=== PATIENT | female | born 1960 | race Caucasian/White ===

== ENCOUNTER → 2016-12-26 | Outpatient (CLI) | payer OTHER ==
[~2016-12-26] MED LIST: ALBU1AER9 INH; CLON1TAB3 PO; DSY50 PO; FAMO20TA11 PO; FRS/40 PO; LPR25 PO; LXP10 PO; POTA10CA28 PO; PRENTAB65 PO; PTU50 PO; TRAM-453 PO
[2016-12-26 12:21] LABS: INR 2.2 (0.9-1.1)
== END | disposition home or self-care (01) ==
LOC: C.LABBFT 09:59
PROVIDERS: ATTEND Internal Medicine
DX: Z95.2 Presence of prosthetic heart valve (principal); E03.9 Hypothyroidism, unspecified

== ENCOUNTER → 2017-03-25 | Outpatient (CLI) | payer OTHER ==
[2017-03-25 17:52] LABS: THYROID STIMULATING HORMONE 2.01 uIu/ml (0.300-4.500)
== END | disposition home or self-care (01) ==
LOC: C.LABBFT 10:30
PROVIDERS: ATTEND Physician Assistant Medical
DX: E03.9 Hypothyroidism, unspecified (principal)

== ENCOUNTER → 2017-06-26 | Outpatient (CLI) | payer OTHER | END | disposition home or self-care (01) | LOC: C.LABBFT 13:47 | PROVIDERS: ATTEND Internal Medicine | DX: E03.9 Hypothyroidism, unspecified (principal) ==

== ENCOUNTER → 2017-08-08 | Outpatient (CLI) | payer OTHER ==
--- NOTE | 2017-08-11 07:49 | MAMMOGRAPHY REPORT ---
BILATERAL DIGITAL SCREENING MAMMOGRAM TOMOSYNTHESIS WITH CAD: 08/08/2017 CLINICAL HISTORY: Routine screening. Patient has no complaints. TECHNIQUE: Breast tomosynthesis in addition to standard 2D mammography was performed. Current study was also evaluated with a Computer Aided Detection (CAD) system. COMPARISON: Comparison is made to exams dated: 04/11/2016 mammogram, 04/06/2015 mammogram, 04/05/2014 m ammogram, 03/26/2013 mammogram, 03/25/2012 mammogram, and 03/21/2011 mammogram - [facility]. BREAST COMPOSITION: There are scattered areas of fibroglandular density in both breasts. FINDINGS: There are mild vascular calcifications and scattered benign rim calcifications in the breas ts. No suspicious mass, architectural distortion or cluster of suspicious microcalcifications is see n. IMPRESSION: ACR BI-RADS CATEGORY 1: NEGATIVE There is no mammographic evidence of malignancy. A 1 year screening mammogram is recommended. The pa tient will receive written notification of the results. Approximately 10% of breast cancers are not detected with mammography. A negative mammographic report should not delay biopsy if a clinically suggestive mass is present. Roxana Ruiz M.D. ay/:08/09/2017 08:52:15 Acupuncturist: Neda SAHNI(R)(M), [facility] letter sent: Normal 1/2 BI-RADS Code: ACR BI-RADS Category 1: Negative
== END | disposition home or self-care (01) ==
LOC: C.MAMM 08:55
PROVIDERS: ATTEND Internal Medicine
DX: Z12.31 Encounter for screening mammogram for malignant neoplasm of breast (principal)

== ENCOUNTER → 2017-08-14 | Outpatient (CLI) | payer OTHER | END | disposition home or self-care (01) | LOC: C.LABBFT 10:07 | PROVIDERS: ATTEND Internal Medicine | DX: E03.9 Hypothyroidism, unspecified (principal) ==

== ENCOUNTER → 2018-04-22 | Outpatient (CLI) | payer OTHER ==
[~2018-04-22] MED LIST changes: +CLON1TAB10 PO; -CLON1TAB3 PO; -DSY50 PO; +TRAZ1TAB49 PO
== END | disposition home or self-care (01) ==
LOC: C.LABBFT 09:23
PROVIDERS: ATTEND Physician Assistant Medical
DX: E03.9 Hypothyroidism, unspecified (principal)

== ENCOUNTER 2024-01-04 01:24 | Inpatient (IN) ==
--- OUTSIDE RECORDS SUMMARY | 2024-01-04 01:28 | External Medical Summary | Summary of Care ---
Author Name Unknown Organization [facility] [address] [place] [address] Phone [phone] Care Team Providers Care Financial Intern Name Role Phone Bhavna Obando DO Primary Care Provider [phone] Reason for Visit * Reason Comments Dosage Adjustment Via Phone (anticoag Cl inic) Encounter Details Date Type Department Care Team (Latest Contact Info) Description 12/25/2023 6:00 PM EDT Anticoagulation Pharmacy Call Center [phone] [facility] [place] [phone] [facility] [phone] [facility] [place] [phone] Atrial fibrillation, unspecified type (HCC)*; Rheumatic aortic stenosis; Paroxysmal atrial fibrillation (HCC); Mitral valve insufficiency, unspecified etiology Allergies Active Allergy Reactions Criticality Noted Date Comments Benzocaine 09/06/2008 Ear drops Nsaids 01/29/2008 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 documented as of this encounter (statuses as of 12/25/2023) Medications Medication Sig Dispensed Refills Start Date End Date Status valACYclovir (VALTREX) 1000 MG TabletIndications: Herpes simplex virus infection take 2 tablets by mouth every 12 hours 4 Tab 3 07/03/2016 Active Multi-Vitamin Daily Oral Tablet Start: 03/20/21 7:25:00 EDT 0 03/20/2021 Active Turmeric 500 MG Oral Capsule Start: 03/15/21 11:26:00 EDT 0 03/15/2021 Active Diclofenac Sodium 1 % External Gel (Voltaren)Indicati ons:Generalized OA See Instructions, Disp# 100 g, Refills: 0, apply 4 grams to affected area four times a day NEEDED FOR PAIN MAX 16 GRAMS A DAY TO SINGLE JOINT OF LOWER EXTREMITIES, Pharmacy: [address] 100 g 5 01/03/2022 Active amLODIPine Besylate 2.5 MG Oral Tablet (Norvasc)Indicatio ns:Paroxysmal atrial fibrillation (HCC) TAKE ONE TABLET BY MOUTH IN THE MORNING 90 Tablet 4 01/31/2023 Active ProAir HFA 108 (90 Base) MCG/ACT Inhalation Aerosol SolutionIndication s:Bronchitis inhale 2 puffs by mouth four times a day if needed 8.5 g 3 03/31/2023 Active busPIRone HCl 10 MG Oral Tablet (Buspar)Indication s:Anxiety TAKE ONE TABLET BY MOUTH IN THE MORNING AND ONE BEFORE BEDTIME 60 Tablet 5 04/20/2023 Active traZODone HCl 50 MG Oral Tablet (Desyrel)Indicatio ns:Sleep disorder TAKE ONE TABLET BY MOUTH BEFORE BEDTIME 90 Tablet 2 06/07/2023 Active Warfarin Sodium 5 MG Oral Tablet (Jantoven)Indicati ons:Paroxysmal atrial fibrillation (HCC),Status post aortic valve replacement,Status post mitral valve replacement TAKE one to TWO TABLETS BY MOUTH DAILY as directed by anticoagulation clinic 180 Tablet 1 07/07/2023 Active Omeprazole 20 MG Oral Capsule Delayed Release (PriLOSEC) TAKE ONE CAPSULE BY MOUTH EVERY MORNING 90 Capsule 0 09/05/2023 Active Amoxicillin 500 MG Oral Capsule (Amoxil)Indication s:Rheumatic heart disease Take four tablets one hour prior to dental work 4 Capsule 11 12/12/2023 Active Levothyroxine Sodium 112 MCG Oral Tablet (Levoxyl)Indicatio ns:Hypothyroidism, postablative TAKE 1 TABLET BY MOUTH EVERY MORNING AT LEAST 30 MINUTES PRIOR TO BREAKFAST OR OTHER MEDICATIONS 90 Tablet 3 12/15/2023 Active Metoprolol Tartrate 50 MG Oral Tablet (Lopressor)Indicat ions:Paroxysmal atrial fibrillation (HCC) TAKE 1 TABLET BY MOUTH TWICE DAILY EVERY MORNING AND BEFORE BEDTIME 180 Tablet 3 12/15/2023 Active predniSONE 20 MG Oral Tablet (Deltasone) Take 3 tabs for 3 days, 2 tabs for 3 days, 1 tab for 3 days, 1/2 tab for 3 days 20 Tablet 0 12/23/2023 Active documented as of this encounter (statuses as of 12/25/2023) Active Problems Problem Noted Date Diagnosed Date OAB (overactive bladder) 08/20/2022 Status post mitral valve replacement 01/14/2022 Status post aortic valve replacement 01/14/2022 Rheumatic valvular disease 01/14/2022 Rheumatic aortic stenosis 12/25/2021 Paroxysmal atrial fibrillation 12/25/2021 Mitral valve insufficiency, unspecified etiology 12/25/2021 Hypothyroidism, postablative 03/29/2016 Overview: TSH elevated 06/2015 after 16 mCi in January 2015 S/P AVR (aortic valve replacement) 10/12/2015 S/P MVR (mitral valve replacement) 10/12/2015 History of hyperthyroidism 09/28/2015 History of Graves' disease 03/09/2015 Aortic valve stenosis 04/17/2012 Mitral valve regurgitation 04/17/2012 NONALLERGIC RHINITIS 05/27/2008 Postnasal drip 05/27/2008 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/22/2007 snf current use of anticoagulant therapy 0 09/26/2003 MITRAL STENOSIS W INSUFF 01/14/2003 Viral warts 03/04/2001 Overview: ICD-10 update of inactive term Herpes simplex virus infection 09/09/2000 AC PROLIFERAT NEPHRITIS 07/01/2000 RHEUMATIC HEART DIS NOS 05/23/2000 Lipoma 01/09/2000 Overview: ICD-10 update of inactive term MUSCULAR BACK PAIN 12/10/1999 Endometriosis 12/10/1999 documented as of this encounter (statuses as of 12/25/2023) Resolved Problems Problem Noted Date Diagnosed Date Resolved Date Hyperthyroidism 06/15/2014 09/28/2015 Bipolar I disorder, most rec ent episode manic, moderate 07/14/2013 11/11/2023 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 017 Other and unspecified rheuma tic heart diseases(398.99) 05/22/2007 05/27/2008 Anticoagulation management encounter 01/14/2003 05/27/2008 Allergic rhinitis 01/09/2000 05/27/2008 documented as of this encounter (statuses as of 12/25/2023) Immunizations Name Administration Dates Next Due COVID-19 mRNA, LNP-s, No Pre serve, 2-Dose Series (Moderna) 07/05/2021,06/07/2021 Pneumococcal Polysaccharide PPV23 (Pneumovax) 09/10/2007 Seasonal Influenza, Quadriva lent, No Preserve, IM 06/15/2022,05/30/2016 Seasonal Influenza, Split, I IV3, With Preserve, Inj 04/19/2015,04/12/2014,04/29/2013,06/04,07/20/2011,07/20/2010,06/29/2008 ,07/20/2007 TDAP (age 11 and older)(Adacel) 04/12/2014,07/20 Varicella Zoster Vaccine (Adult) 12/10/2013 Zoster Vaccine Recombinant (Shingrix) 02/25/2018 ,12/02/2017 documented as of this encounter Social History Tobacco Use Types Packs/Day Years Used Date Smoking Tobacco: Former Cigarettes 1.5 15 0 12/23/2006 - 12/23/2021 Smokeless Tobacco: Never Comments:no passive smoke Alcohol Use Standard Drinks/Week Comments No 0 (1 standard drink = 0.6 oz pur e alcohol) Hunger Vital Sign Answer Date Recorded Within the past 12 months, y ou worried that your food would run out before you got the money to buy more. Never true 04/15/20 23 Within the past 12 months, t he food you bought just didn't last and you didn't have money to get more. Never true 04/15/2023 Sex and Gender Information Value Date Recorded Sex Assigned at Not on file Gender Identity Not on file Sexual Orientation Not on file Job Start Date Occupation Industry Not on file Not on file Not on file documented as of this encounter Functional Status Functional Status Response Date of Assess ment Are you deaf or do you have serious difficulty h earing? No 10/02/2015 Are you blind or do you have serious difficulty seeing, even when wearing glasses? No 10/02/2015 Do you have serious difficul ty walking or climbing stairs? (5 years old or older) No 10/02/2015 Do you have difficulty dress ing or bathing? (5 years old or older) No 10/02/2015 Because of a physical, menta l, or emotional condition, do you have difficulty doing errands alone such as visiting a doctor s office or shopping? (15 years old or older) No 10/02/19 16 Cognitive Status Response Date of Assessm ent Because of a physical, menta l, or emotional condition, do you have serious difficulty concentrating, remembering, or making decisions? (5 years old or older) No 10/02/2015 documented as of this encounter Progress Notes * Andrés Villanueva CPhT - 12/25/2023 2:11 PM EDT Contacts Type Contact Phone/Fax 12/25/2023 02:09 PM EDT Phone (Outgoing) Yahaira Worthy (Self) [phone] (M) Left Message Subjective Advised patient to contact Anticoagulation Clinic if any unusual bruising or bleeding, recent illness, changes in medication, or questions/concerns. PT/INR results, Coumadin dose instructions, and next PT/INR date communicated as noted by Pharmacist: Yes Andrés Villanueva CPhT 12/25/2023, 2:11 PM * Linda Ahn [facility] - 12/25/2023 1:48 PM EDT Images from the original note were not included. Coumadin Clinic (region specific) Objective Current Warfarin Dose As of 12/25/2023 Warfarin maintenance plan: 10 mg (5 mg x 2) every Mon, Wed, Fri; 7.5 mg (5 mg x 1.5) all other days INR Result As of 12/25/2023 INR goal: 2.5-3.5 INR used for dosin.0 (12/25/2023) Assessment & Plan Warfarin Plan As of 12/25/2023 Full warfarin instructions: 12/24: Hold; 12/25: Hold; Otherwise 10 mg every Mon, Wed, Fri; 7.5 mg allother days Next INR check: 01/15/2024 Repeat PT/INR in 3 week(s) Weekly dose: not changed Additional Dosing Information: Description [facility] P[employer]ed [employer] Machine Operator to contact patient with dose instructions as noted. Linda Ahn RPh 12/25/2023, 1:48 PM documented in this encounter Plan of Treatment Upcoming Encounters Date Type Department Care Team (Late st Contact Info) Description 01/20/2024 2:15 PM EDT Office Visit Urogynecology [facility] [address] [place] [address] Manav Sequeira MD [address] [place] [address] Nurse Lee Saunders [facility] [address] [place] [address] 02/03/2024 2:00 PM EDT Imaging Cardiac Studies, [facility] [address] [place] [phone] 02/04/2024 11:00 AM EDT Office Visit Cardiology, [facility] [address] [place] [address] Michele Cooper, P[place]at [address] [place] [phone] Scheduled Procedures Name Priority Associated Diagnoses Date/Ti me COLONOSCOPY FLEXIBLE PROXIMAL DIAGNOSTIC Recall History of colon polyps Health Maintenance Due Date Last Done Comments HIV Screening 1975 Hepatitis C Screening 12/22/1979 HPV/Co-Test 12/22/1991 LUNG CANCER SCREENING - USE SMARTSET 69331 12/22/2011 Depression Screening 02/05/2017 02/06/2016 COVID-19 Vaccine ( season) 2023 07/05/2021, 06/07/2021 Mammogram 03/17/2024 03/17/2023, 02/15, 04/11/2016, Additional history exists DTaP,Tdap,and Td Vaccines (3 - Td or Tdap) 04/12/2024 04/12/2014, 07/20/2007 Influenza Vaccine (FLU shot) (Season Ended) 2024 06/15/2022, 05/30/2016, 04/19/2015, Additional history exists TSH 11/11/2024 11/11/2023, 01/15, 01/03/2022, Additional history exists Cervical Cancer Screening 03/25/2025 Pap Smear 03/25/2025 03/25/2022, 09/2012, 03/31/2012, Additional history exists Diabetes Screening 11/11/2026 11/11/2023, 0 02/11/2023, 01/03/2022, Additional history exists COLONOSCOPY-EVERY 5 YRS AGES 18-100 06/17/2027 06/17/2022, 06/17/2022, 05/29/2012, Additional history exists Lipid Panel 11/11/2028 11/11/2023, 01/15, 01/03/2022, Additional history exists Pneumococcal Vaccine: Pediatrics (0 to 5 Years) and At-Risk Patients (6 to 64 Years) Aged Out 09/10/2007 No longer eligible based on patient's age to complete this topic Zoster Vaccines Completed 02/25/2018, 11/14, 12/10/2013 GARDASIL-HPV IMMUNIZATION SERIES Aged Out No longer eligible based on patient's age to complete this topic Hepatitis B Aged Out No longer eligi ble based on patient's age to complete this topic MENINGOCOCCAL (MENACTRA/MENVEO) Aged Out No longer eligible based on patient's age to complete this topic documented as of this encounter Medical Devices Implanted Type Area Store Custodian Device Identifier Shelf Expiration Date Model / Serial / Lot Sut Steel 6 [id number] - [id number] Implanted:Qty : 4 on 10/02/2015 [place]cin[place]ga [place] [facility] [place] Sternum [place] : [employer] 08/14/2020 [id number] / / [id number] Valve Heart Aortic [facility] Hp21mm - [id number] - [id number] Implanted:Qty : 1 on 10/02/2015 by Kevin Arciniega [place] [facility] [place]/A: Heart [facility] : CARDIOVASCULAR 03/30/2019 [id number] / [id number] / Valve [facility] [employer] Mitral 31mj-[id number] - [id number] - [id number] Implanted:Qty : 1 on 10/02/2015 by Kevin Arciniega [place] [facility] [place]/A: Heart [employer] : CARDIOVASCULAR 03/07/2019 [id number] / [id number] / documented as of this encounter Visit Diagnoses Diagnosis Atrial fibrillation, unspecified type (HCC)- Primary Rheumatic aortic stenosis Paroxysmal atrial fibrillation (HCC) Atrial fibrillation Mitral valve insufficiency, unspecified etiology documented in this encounter Advance Directives Latest Code Status on File Code Status Date Activated Date Inactivated Comments Full Code 10/02/2015 11:47 AM 10/10/2015 5:43 PM This order reflects the patients wishes and were consensually agreed upon. Care Teams Financial Intern Relationship Specialty Start Date End Date Bhavna Obando DO [address] [place] [address] PCP - General Family Medicine 01/03/22 documented as of this encounter
--- OUTSIDE RECORDS SUMMARY | 2024-01-04 01:28 | External Medical Summary | Summary of Care ---
Author Name Unknown Organization [facility] Address [address] [facility] [place] [address] Phone [phone] Care Team Providers Care Shop Service Technician Name Role Phone Bhavna Obando DO Primary Care Provider [phone] Reason for Visit * Reason Comments Acute Encounter Details Date Type Department Care Team (Late st Contact Info) Description 12/27/2023 2:10 PM EDT Telemedicine Family Practice/Pediatrics[address] [place] [address] Roxana Marquez MD [address] [place] [address] Acute bacterial sinusitis* Allergies Active Allergy Reactions Criticality Noted Date Comments Benzocaine 09/06/2008 Ear drops Nsaids 01/29/2008 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 documented as of this encounter (statuses as of 12/27/2023) Medications Medication Sig Dispensed Refills Start Date [...] TO SINGLE JOINT OF LOWER EXTREMITIES, Pharmacy: [facility] [place] [address] 100 g 5 01/03/2022 Active amLODIPine Besylate [...] 3 days 20 Tablet 0 12/23/2023 Active Amoxicillin-Pot Clavulanate 875-125 MG Oral Tablet (Augmentin)Indicat ions:Acute bacterial sinusitis Take 1 Tablet by mouth in the morning and 1 Tablet before bedtime. Do all this for 7 days. 14 Tablet 0 12/27/2023 Active Benzonatate 100 MG Oral CapsuleIndications :Acute bacterial sinusitis Take 1 Capsule by mouth 3 times a day as needed for Cough. 30 Capsule 1 12/27/2023 Active documented as of this encounter (statuses as of 12/27/2023) Active Problems Problem Noted Date Diagnosed Date [...] 05/27/2008 Postnasal drip 05/27/2008 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/22/2007 [facility] current use of anticoagulant therapy 0 09/26/2003 MITRAL STENOSIS W INSUFF 01/14/2003 Viral warts 03/04/2001 Overview: ICD-10 update of inactive term Herpes simplex virus infection 09/09/2000 AC PROLIFERAT NEPHRITIS 07/01/2000 RHEUMATIC HEART DIS NOS 05/23/2000 Lipoma 01/09/2000 Overview: ICD-10 update of inactive term MUSCULAR BACK PAIN 12/10/1999 Endometriosis 12/10/1999 documented as of this encounter (statuses as of 12/27/2023) Resolved Problems Problem Noted Date Diagnosed Date Resolved Date Hyperthyroidism 06/15/2014 09/28/2015 Bipolar I disorder, most rec ent episode manic, moderate 07/14/2013 11/11/2023 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 017 Other and unspecified rheuma tic heart diseases(398.99) 05/22/2007 05/27/2008 Anticoagulation management encounter 01/14/2003 05/27/2008 Allergic rhinitis 01/09/2000 05/27/2008 documented as of this encounter (statuses as of 12/27/2023) Immunizations Name Administration Dates Next Due COVID-19 [...] as of this encounter Progress Notes * Roxana Marquez MD - 12/27/2023 2:00 PM EDT Concerns Chief Complaint Patient presents with Chief Complaint Patient presents with Acute HPI & ROS Yahaira Worthy is a 63 year old female is presenting for Acute Patient location: HOME. I was in a hospital or clinic location. After connecting through televideo,patient was verified with two unique identifiers. 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 Methods to assure confidentiality were taken. Patient acknowledged consent and understanding of pr ivacy and security of the Telemedicine visit. The patient agreed to participate. HPI #. Was seen in the office 3 days ago She was around her sister who was sick with strep She was tested and it was negative Now she is very congested and coughing up green mucus She is also taking tylenol and prednisone No fevers Having headaches Review of Systems Constitutional: Positive for fatigue. Negative for fever. HENT: Positive for congestion, sinus pressure, sinus pain and sore throat. Respiratory: Positive for cough. Cardiovascular: Negative. All other systems reviewed and are negative. Current Outpatient Medications Medication Sig Dispense Refill Amoxicillin-Pot Clavulanate 875-125 MG Oral Tablet (Augmentin) Take 1 Tablet by mouth in the morning and 1 Tablet before bedtime. Do all this for 7 days. 14 Tablet 0 Benzonatate 100 MG Oral Capsule Take 1 Capsule by mouth 3 times a day as needed for Cough. 30 Capsule 1 valACYclovir (VALTREX) 1000 MG Tablet take 2 tablets by mouth every 12 hours 4 Tab 3 Multi-Vitamin Daily Oral Tablet Start: 03/20/21 7:25:00 EDT Turmeric 500 MG Oral Capsule Start: 03/15/21 11:26:00 EDT Diclofenac Sodium 1 % External Gel (Voltaren) See Instructions, Disp# 100 g, Refills: 0, apply 4 grams to affected area four times a day NEEDED FOR PAIN MAX 16 GRAMS A DAY TO SINGLE JOINT OF LOWEREXTREMITIES, Pharmacy: [facility] [address] 100 g 5 amLODIPine Besylate 2.5 MG Oral Tablet (Norvasc) TAKE ONE TABLET BY MOUTH IN THE MORNING 90 Tablet 4 ProAir HFA 108 (90 Base) MCG/ACT Inhalation Aerosol Solution inhale 2 puffs by mouth four times a day if needed 8.5 g 3 busPIRone HCl 10 MG Oral Tablet (Buspar) TAKE ONE TABLET BY MOUTH IN THE MORNING AND ONE BEFORE BEDTIME 60 Tablet 5 traZODone HCl 50 MG Oral Tablet (Desyrel) TAKE ONE TABLET BY MOUTH BEFORE BEDTIME 90 Tablet 2 Warfarin Sodium 5 MG Oral Tablet (Jantoven) TAKE one to TWO TABLETS BY MOUTH DAILY as directed by anticoagulation clinic 180 Tablet 1 Omeprazole 20 MG Oral Capsule Delayed Release (PriLOSEC) TAKE ONE CAPSULE BY MOUTH EVERY MORNING 90Capsule 0 Amoxicillin 500 MG Oral Capsule (Amoxil) Take four tablets one hour prior to dental work 4 Capsule 11 Levothyroxine Sodium 112 MCG Oral Tablet (Levoxyl) TAKE 1 TABLET BY MOUTH EVERY MORNING AT LEAST 30MINUTES PRIOR TO BREAKFAST OR OTHER MEDICATIONS 90 Tablet 3 Metoprolol Tartrate 50 MG Oral Tablet (Lopressor) TAKE 1 TABLET BY MOUTH TWICE DAILY EVERY MORNING AND BEFORE BEDTIME 180 Tablet 3 predniSONE 20 MG Oral Tablet (Deltasone) Take 3 tabs for 3 days, 2 tabs for 3 days, 1 tab for 3 days, 1/2 tab for 3 days 20 Tablet 0 No current facility-administered medications for this visit. Physical Exam LMP 01/30/2012 There is no height or weight on file to calculate BMI. BP Readings from Last 3 Encounters: 12/25/23 118/76 11/11/23 106/72 02/05/23 148/86 Wt Readings from Last 3 Encounters: 12/25/23 80.6 kg (177 lb 9.6 oz) 11/11/23 75.3 kg (166 lb) 02/05/23 79.1 kg (174 lb 6.4 oz) Physical Exam Constitutional: Appearance: Normal appearance. HENT: Nose: Congestion and rhinorrhea present. Pulmonary: Effort: Pulmonary effort is normal. Skin: General: Skin is warm and dry. Neurological: Mental Status: She is alert and oriented to person, place, and time. Psychiatric: Mood and Affect: Mood normal. Behavior: Behavior normal. Assessment/ Plan Problem List Items Addressed This Visit None Visit Diagnoses Acute bacterial sinusitis - Primary Relevant Medications Amoxicillin-Pot Clavulanate 875-125 MG Oral Tablet (Augmentin) Benzonatate 100 MG Oral Capsule Currently taking prednisone Work excuse for 12/29/23 F/u if failure to improve or sx worsen All patient questions were addressed. The patient expressed understanding of the plan. Risks, benefits, and alternatives discussed. Advised to contact me with further questions or concerns. Roxana Marquez M.D. documented in this encounter Plan of Treatment Upcoming Encounters Date Type Department Care Team (Late st Contact Info) Description 01/15/2024 8:50 AM EDT Laboratory Laboratory [facility] [place] [address] [place] [address] [place], Lab [address] [place] [address] 01/16/2024 6:15 AM EDT Anticoagulation Pharmacy Call Center [phone] [place] [address] [facility] [address] [facility] [place] [address] 01/20/2024 2:15 PM EDT Office Visit Urogynecology [facility] [address] [facility] [place] [address] Manav Sequeira MD [address] [place] [address] Nurse Lee Saunders Lin [address] [place] [address] 02/03/2024 2:00 PM EDT Imaging Cardiac Studies, [place] [facility] [address] [place] [address] 02/04/2024 11:00 AM EDT Office Visit Cardiology, [facility] [address] [place] [address] Michele Cooper PA-C [address] [place] [address] Scheduled Procedures Name Priority Associated Diagnoses Date/Ti me COLONOSCOPY FLEXIBLE PROXIMAL DIAGNOSTIC Recall History of colon polyps Health Maintenance Due Date Last Done Comments HIV Screening 1975 Hepatitis C Screening 12/22/1979 HPV/Co-Test 12/22/1991 LUNG CANCER SCREENING - USE SMARTSET 07963 12/22/2011 Depression Screening 02/05/2017 02/06/2016 COVID-19 Vaccine ( season) 2023 07/05/2021, 06/07/2021 Mammogram 03/17/2024 03/17/2023, 02/15, 04/11/2016, Additional history exists DTaP,Tdap,and Td Vaccines (3 - Td or Tdap) 04/12/2024 04/12/2014, 07/20/2007 Influenza Vaccine (FLU shot) (Season Ended) 2024 06/15/2022, 05/30/2016, 04/19/2015, Additional history exists TSH 11/11/2024 11/11/2023, 01/15, 01/03/2022, Additional history exists Cervical Cancer Screening 03/25/2025 Pap Smear 03/25/2025 03/25/2022, 1009/2012, 03/31/2012, Additional history exists Diabetes Screening 11/11/2026 [...] this encounter Medical Devices Implanted Type Area Heel Caser Device Identifier Shelf Expiration Date Model / Serial / Lot Sut Steel 6 [id number] - [id number] Implanted:Qty : 4 on 10/02/2015 by Kevin Arciinega MD at [place] [facility] N/A: Sternum JNJ : [employer] 08/14/2020 M654G / / [id number] Valve Heart Aortic [facility] Hp21mm - [id number] - [id number] Implanted:Qty : 1 on 10/02/2015 by Kevin Arciniega MD at [place] [facility] N/A: Heart [facility] CHAPO : CARDIOVASCULAR 03/30/2019 [id number]-50 [id number] / [id number] / Valve [facility] Chapo Mitral 31mj-501 - [id number] - [id number] Implanted:Qty : 1 on 10/02/2015 by Kevin Arciniega MD at [place] [facility] N/A: Heart [facility] [employer] : CARDIOVASCULAR 03/07/2019 [id number]-501 / [id number] / documented as of this encounter Visit Diagnoses Diagnosis Acute bacterial sinusitis- Primary Acute sinusitis, unspecified documented in this encounter Advance Directives Latest Code Status on File Code Status Date Activated Date Inactivated Comments Full Code 10/02/2015 11:47 AM 10/10/2015 5:43 PM This order reflects the patients wishes and were consensually agreed upon. Care Teams Shop Service Technician Relationship Specialty Start Date End Date Bhavna Obando DO [address] [place] [address] PCP - General Family Medicine 01/03/22 documented as of this encounter
--- OUTSIDE RECORDS SUMMARY | 2024-01-04 01:28 | External Medical Summary | Summary of Care ---
Author Name Unknown Organization [facility] Address [address] [facility] [place] [address] Phone [phone] Care Team Providers Care Cso Name Role Phone Bhavna Obando DO Primary Care Provider [phone] Reason for Visit * Reason Onset Date Comments Med Request 12/26/2023 Encounter Details Date Type Department Care Team (Late st Contact Info) Description 12/26/2023 Telephone Family Practice [facility] [address] [place] [address] Bhavna Obando DO [address] [place] [address] Med Request Allergies Active Allergy Reactions Criticality Noted Date [...] SINGLE JOINT OF LOWER EXTREMITIES, Pharmacy: [facility] [address] 100 g 5 01/03/2022 Active amLODIPine [...] 3 days, 1 tab for 3 days, 2 tab for 3 days 20 Tablet 0 [...] 05/27/2008 Postnasal drip 05/27/2008 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/22/2007 [facility] current use of anticoagulant therapy 0 09/26/2003 [...] No 10/02/2015 documented as of this encounter Miscellaneous Notes * Telephone Encounter - Claudia Hills OSA - 12/27/2023 8:21 AM EDT Patient has been notified of the message. Patient has no further questions. * Telephone Encounter - Linda Frey LPN - 12/26/2023 4:33 PM EDT Called pt, left message that strep was negative, and we would need information on how she is feeling today, and the need for cough med. Congestion? Cough? SOB? If ill, or no better, would suggest urgent care this weekend or clinic. Or this will have to wait until Friday. Ask that she call back to discuss. * Telephone Encounter - Cecily Maldonado OSA - 12/26/2023 9:29 AM EDT Patient states that she saw Dr. Edwards yesterday for sore throat. Did a strep swab, no results yet. She wants a message sent to Dr. Obando to see if she will call in "cough syrup" for this. Mentionsguiafenasin is what she wants. documented in this encounter Plan of Treatment Upcoming Encounters Date Type Department Care Team (Late st Contact Info) Description 01/15/2024 8:50 AM EDT Laboratory Laboratory [facility] [place] [address] [place] [address] [address] [place] [address] 01/16/2024 6:15 AM EDT Anticoagulation Pharmacy Call Center [phone] [facility] [address] [place] [address] [facility] [address] [facility] [place] [address] 01/20/2024 2:15 PM EDT Office Visit Urogynecology [facility] [address] [place] [address] Manav Sequeira MD [address] [place] [address] Nurse Lee Saunders [facility] [address] [place] [address] 02/03/2024 2:00 PM EDT Imaging Cardiac Studies, [facility] [address] [place] [address] 02/04/2024 11:00 AM EDT Office Visit Cardiology, [facility] [address] [facility] [place] [address] Michele Cooper, [facility] [address] [place] [address] Scheduled Procedures Name Priority Associated Diagnoses Date/Ti me COLONOSCOPY FLEXIBLE PROXIMAL DIAGNOSTIC Recall History of colon polyps Health Maintenance Due Date Last Done Comments HIV Screening 1975 Hepatitis C Screening 12/22/1979 HPV/Co-Test 12/22/1991 LUNG CANCER SCREENING - USE SMARTSET 16604 12/22/2011 Depression Screening 02/05/2017 02/06/2016 COVID-19 Vaccine ( season) 2023 07/05/2021, 06/07/2021 Mammogram 03/17/2024 03/17/2023, 02/15, 04/11/2016, Additional history exists DTaP,Tdap,and Td Vaccines (3 - Td or Tdap) 04/12/2024 04/12/2014, 07/20/2007 Influenza Vaccine (FLU shot) (Season Ended) 2024 06/15/2022, 05/30/2016, 04/19/2015, Additional history exists TSH 11/11/2024 11/11/2023, 01/15, 01/03/2022, Additional history exists Cervical Cancer Screening 03/25/2025 Pap Smear 03/25/2025 03/25/2022, 10/0 09/2012, 03/31/2012, Additional history exists Diabetes Screening [...] this encounter Medical Devices Implanted Type Area Statistical Geneticist Device Identifier Shelf Expiration Date Model / Serial / Lot Sut Steel 6 M654g - [id number] Implanted:Qty : 4 on 10/02/2015 by Kevin Arciniega MD at [place] [facility] N/A: Sternum JNJ : [employer] 08/14/2020 M654G / / [id number] Valve Heart Aortic [facility] Hp21mm - [id number] - [id number] Implanted:Qty : 1 on 10/02/2015 by Kevin Arciniega MD at [place] [facility] N/A: Heart [facility] [employer]APO : CARDIOVASCULAR 03/30/2019 [id number]-[id number] 5 / [id number] / Valve [facility] Chapo Mitral 31j-501 - [id number] - [id number] Implanted:Qty : 1 on 10/02/2015 by Kevin Arciniega MD at [place] [facility] N/A: Heart ST CHAPO : CARDIOVASCULAR 03/07/2019 [id number]-[id number] / [id number] / documented as of this encounter Advance Directives Latest Code Status on File Code Status Date Activated Date Inactivated Comments Full Code 10/02/2015 11:47 AM 10/10/2015 5:43 PM This order reflects the patients wishes and were consensually agreed upon. Care Teams Cso Relationship Specialty Start Date End Date Bhavna Obando DO [address] [place] [address] PCP - General Family Medicine 01/03/22 documented as of this encounter
--- OUTSIDE RECORDS SUMMARY | 2024-01-04 01:29 | External Medical Summary | Summary of Care ---
Author Name Unknown Organization [facility] Address [address] [place] [address] Phone [phone] Care Team Providers Care Credit Risk Associate Name Role Phone Bhavna Obando DO Primary Care Provider [phone] Reason for Visit * Reason Comments Sore Throat Patient has had a so re throat since yesterday. Sx include yellow mucus, sore throat, chills. Patient states that she was in contact with her sister on Friday and her sister tested positive for strep throat. Patient has taken cough drop and tylenol and (-) relief. Encounter Details Date Type Department Care Team (Late st Contact Info) Description 12/25/2023 1:00 PM EDT Office Visit [address] [place] [address] Austin Edwards MD [address] [place] [address] [place] [address] Strep sore throat* Allergies Active Allergy Reactions Criticality Noted Date Comments Benzocaine 09/06/2008 Ear drops Nsaids 01/29/2008 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 documented as of this encounter (statuses as of 12/25/2023) Medications Medication Sig Dispensed Refills Start Date End Date Status valACYclovir (VALTREX) 1000 MG TabletIndications :Herpes simplex virus infection take 2 tablets by mouth every 12 hours 4 Tab 3 6 Active Multi-Vitamin Daily Oral Tablet Start: 03/20/21 7:25:00 EDT 0 1 Active Turmeric 500 MG Oral Capsule Start: 03/15/21 11:26:00 EDT 0 1 Active Diclofenac Sodium 1 % External Gel (Voltaren)Indicat ions:Generalized OA See Instructions, Disp# 100 g, Refills: 0, apply 4 grams to affected area four times a day NEEDED FOR PAIN MAX 16 GRAMS A DAY TO SINGLE JOINT OF LOWER EXTREMITIES, Pharmacy: [facility] 100 g 5 2 Active amLODIPine Besylate 2.5 MG Oral Tablet (Norvasc)Indicati ons:Paroxysmal atrial fibrillation (HCC) TAKE ONE TABLET BY MOUTH IN THE MORNING 90 Tablet 4 3 Active ProAir HFA 108 (90 Base) MCG/ACT Inhalation Aerosol SolutionIndicatio ns:Bronchitis inhale 2 puffs by mouth four times a day if needed 8.5 g 3 3 Active busPIRone HCl 10 MG Oral Tablet (Buspar)Indicatio ns:Anxiety TAKE ONE TABLET BY MOUTH IN THE MORNING AND ONE BEFORE BEDTIME 60 Tablet 5 3 Active traZODone HCl 50 MG Oral Tablet (Desyrel)Indicati ons:Sleep disorder TAKE ONE TABLET BY MOUTH BEFORE BEDTIME 90 Tablet 2 3 Active Warfarin Sodium 5 MG Oral Tablet (Jantoven)Indicat ions:Paroxysmal atrial fibrillation (HCC),Status post aortic valve replacement,Statu s post mitral valve replacement TAKE one to TWO TABLETS BY MOUTH DAILY as directed by anticoagulation clinic 180 Tablet 1 3 Active Omeprazole 20 MG Oral Capsule Delayed Release (PriLOSEC) TAKE ONE CAPSULE BY MOUTH EVERY MORNING 90 Capsule 0 3 Active Amoxicillin 500 MG Oral Capsule (Amoxil)Indicatio ns:Rheumatic heart disease Take four tablets one hour prior to dental work 4 Capsule 11 4 Active Levothyroxine Sodium 112 MCG Oral Tablet (Levoxyl)Indicati ons:Hypothyroidis m, postablative TAKE 1 TABLET BY MOUTH EVERY MORNING AT LEAST 30 MINUTES PRIOR TO BREAKFAST OR OTHER MEDICATIONS 90 Tablet 3 4 Active Metoprolol Tartrate 50 MG Oral Tablet (Lopressor)Indica tions:Paroxysmal atrial fibrillation (HCC) TAKE 1 TABLET BY MOUTH TWICE DAILY EVERY MORNING AND BEFORE BEDTIME 180 Tablet 3 4 Active predniSONE 20 MG Oral Tablet (Deltasone) Take 3 tabs for 3 days, 2 tabs for 3 days, 1 tab for 3 days, 1/2 tab for 3 days 20 Tablet 0 4 Active Oxybutynin Chloride ER 10 MG Oral Tablet Extended Release 24 Hour (Ditropan XL)Indications:OA B (overactive bladder) Take 1 Tablet (10 mg) by mouth in the morning. Do not cut, crush or chew. 30 Tablet 11 2 10/22/19 24 Discontinu ed(Patient preference /discontin uation) Escitalopram Oxalate 20 MG Oral Tablet (Lexapro) TAKE 1 TABLET BY MOUTH EVERY MORNING 90 Tablet 3 3 10/22/19 24 Discontinu ed(Patient preference /discontin uation) documented as of this encounter (statuses as [...] 05/27/2008 Postnasal drip 05/27/2008 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/22/2007 USP current use of anticoagulant therapy 0 09/26/2003 [...] the money to buy more. Never true 08/01/20 23 Within the past 12 months, t [...] on file documented as of this encounter Last Filed Vital Signs Vital Sign Reading Time Taken Comments Blood Pressure 118/76 12/25/2023 12:37 PM EDT Pulse 98 12/25/2023 12:37 PM EDT Temperature 36.2 C (97.1 F) 12/25/2023 12:37 PM E DT Respiratory Rate - - Oxygen Saturation 96% 12/25/2023 12:37 PM EDT Inhaled Oxygen Concentration - - Weight 80.6 kg (177 lb 9.6 oz) 12/25/2023 12:37 PM EDT Height 160 cm (5' 2.99") 12/25/2023 12:37 PM EDT Body Mass Index 31.47 12/25/2023 12:37 PM EDT documented in this encounter Functional Status Functional Status Response [...] as of this encounter Progress Notes * Austin Edwards MD - 12/25/2023 12:41 PM EDT Nursing Notes: Daniel Tipton, MED ASSIST 12/25/23 1237 Sign at exiting of workspace Chief Complaint Patient presents with Sore Throat Patient has had a sore throat since yesterday. Sx include yellow mucus, sore throat, chills. Patient states that she was in contact with her sister on Friday and her sister tested positive for strep throat. Patient has taken cough drop and tylenol and (-) relief. Health Maintenance addressed. No recent Covid. 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 ECHO Rheumatic mitral regurgitation 06/11/2000 ECHO 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 Past Surgical History: Procedure Laterality Date BIOPSY OF BREAST, OPEN Left breast, benign COLONOSCOPY, DIAGNOSTIC (RECTUM) 05/27/2012 ADENOMATOUS POLYPS REPEAT COLONOSCOPY IN 5 YEARS COLONOSCOPY, DIAGNOSTIC (RECTUM) 06/17/2022 multi polyps in transverse & sigmoid, diverticulosis in sigmoid, internal hemorrhoids / biopsies benign adenomatous polyp and a hyperplastic polyp / 5 year recall / COLONOSCOPY FLEXIBLE PROXIMAL DIAGNOSTIC performed by Giovanny Morton MD at ENDOSCOPY [facility] CORONARY ANGIOGRAPHY W/RIGHT+LEFT CATH Right 08/04/2015 CORONARY ANGIOGRAPHY W/RIGHT+LEFT CATH performed by Jerardo Schwartz MD at [facility]ARDIAC LAB[facility] INFORMATION Laparoscopy, Dx with Endometriosis LIGATE/CUT OVIDUCT(S) Tubal Ligation NM RADIOPHARNACEUTICAL THYROID CANCER ABLATION 01/2015 16 mCi GLOVER-131 [Mt [place]] REPLACE MITRAL VALVE W/BYPASS 10/02/2015 REPLACEMENT MITRAL VALVE performed by Kevin Arciniega MD at [place] [facility] REPLACEMENT AORTIC VALVE, BYPASS WITH PROSTHETIC VALVE N/A 10/02/2015 REPLACEMENT AORTIC VALVE performed by Kevin Arciniega MD at OR [facility] Review of patient's allergies indicates: Allergen Reactions Benzocaine Ear drops Nsaids 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 Social History Socioeconomic History Marital status: Spouse name: velia Number of children: 2 Years of education: Not on file Highest education level: Not on file Occupational History 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: [employer] Employer: [employer] Tobacco Use Smoking status: Former Current packs/day: 0.00 Average packs/day: 1.5 packs/day for 15.0 years (22.5 ttl pk-yrs) Types: Cigarettes Start date: 12/23/2006 Quit date: 12/23/2021 Years since quittin.0 Smokeless tobacco: Never Tobacco comments: no passive smoke Vaping Use Vaping Use: Never used Substance and Sexual Activity Alcohol use: No Alcohol/week: 0.0 standard drinks of alcohol Drug use: No Sexual activity: Yes Partners: Male control/protection: Surgical Comment: tubal Other Topics Concern Service Not Asked Blood Transfusions Not Asked Caffeine Concern Not Asked Occupational Exposure Not Asked Hobby Hazards Not Asked Sleep Concern Not Asked Stress Concern Not Asked Weight Concern Not Asked Special Diet Yes Comment: no ca, milk about 1/day Back Care Not Asked Exercise No Bike Helmet Not Asked Seat Belt Not Asked Self-Exams Yes Comment: breast Social History Narrative [facility] [place] INFORMATIONENVIRONMENTAL HISTORY:Type of Home: Two StoryType of Heating System: Gas and Forced airAir Conditioning: Yes UpstairsBasement: Finished, Dampness, Dehumidifier and Mold, mildewHome have cockroaches: NoIrritants in the home: Scented Candles and Scented air freshenersPatient's bedroom location: Floor: second Type of calli: HardwoodBeds: Number: 1 Type of beds: AirMattressPillows: Number: 1 Type of pillows: Synthetic (hypoallergenic, polyester)Bedroom contains: Minimal itemsPets: 3 dog(s)Lives on a farm: NoPharTyrosy water quality technician; exposed to some cleaning sprays and dust.Entered by: Arun Lundberg MD05/27/2008Pharm tech Left handed As of 04/15/2023 she is not a retail pharmacy merchandiser, has a job working at [employer] Social [employer] Financial Resource Strain: Not on file Food Insecurity: No Food Insecurity (04/15/2023) Hunger Vital Sign Worried About Running Out of Food in the Last Year: Never true Ran Out of Food in the Last Year: Never true Transportation Needs: Not on file Physical Activity: Not on file Stress: Not on file Social Connections: Not on file Intimate Partner Violence: Not on file Housing Stability: Not on file Current Outpatient Medications Medication Sig Dispense Refill valACYclovir (VALTREX) 1000 MG Tablet take 2 [...] TO SINGLE JOINT OF LOWEREXTREMITIES, Pharmacy: [facility] [address] 100 g 5 amLODIPine Besylate 2.5 [...] tab for 3 days 20 Tablet 0 Oxybutynin Chloride ER 10 MG Oral Tablet Extended Release 24 Hour (Ditropan XL) Take 1 Tablet (10 mg) by mouth in the morning. Do not cut, crush or chew. (Patient not taking: Reported on 11/11/2023) 30 Tablet 11 Escitalopram Oxalate 20 MG Oral Tablet (Lexapro) TAKE 1 TABLET BY MOUTH EVERY MORNING (Patient not taking: Reported on 11/11/2023) 90 Tablet 3 No current facility-administered medications for this visit. Immunization History Administered Date(s) Administered COVID-19 mRNA, LNP-s, No Preserve, 2-Dose Series (Moderna) 06/07/2021, 07/05/2021 Pneumococcal Polysaccharide PPV23 (Pneumovax) 09/10/2007 Seasonal Influenza, Quadrivalent, No Preserve, IM 05/30/2016, 06/15/2022 Seasonal Influenza, Split, IIV3, With Preserve, Inj 07/20/2007, 06/29/2008, 07/20/2010, 07/20/2011,06/04/2012, 04/29/2013, 04/12/2014, 04/19/2015 TDAP (age 11 and older)(Adacel) 07/20/2007, 04/12/2014 Varicella Zoster Vaccine (Adult) 12/10/2013 Zoster Vaccine Recombinant (Shingrix) 12/02/2017, 02/25/2018 Denies nausea, vomiting, or diarrhea. O: Blood pressure 118/76, pulse 98, temperature 36.2 C (97.1 F), temperature source Tympanic, height 1.6 m (5' 2.99"), weight 80.6 kg (177 lb 9.6 oz), last menstrual period 01/30/2012, SpO2 96%. General appearance: well developed, well nourished and in no acute distress. PERRLA, EOMI. No scleral icterus. No facial assymmetry. TM's and canals normal. There is a normal gag reflex. Pt has normal teeth and no pharyngeal inflammation. The palate has no lesions and the uvula is normal. Neck is supple without adenopathy or thyromegaly. Chest is symmetrical and moves normally. The lungs are clearwithout wheezes, rales, rhonchi or rubs, and the heart is regular without murmurs or gallops, or ectopy. PMI not displaced. Rapid strep negative A :Strep sore throat (Primary) - STREP A SCREEN, POINT OF CARE (ENTER/EDIT) - GROUP A STREP PCR - RETURN TO WORK OR SCHOOL for Friday. She is on steroids already, so just continue that. Follow Up: Return if symptoms worsen or fail to improve. documented in this encounter Nursing Notes * Daniel Tipton MED ASSIST - 12/25/2023 12:37 PM EDT Chief Complaint Patient presents with Sore Throat Patient has had a sore throat since yesterday. Sx include yellow mucus, sore throat, chills. Patient states that she was in contact with her sister on Friday and her sister tested positive for strep throat. Patient has taken cough drop and tylenol and (-) relief. documented in this encounter Plan of Treatment Upcoming Encounters Date Type Department Care Team (Latest Contact Info) Description 12/25/2023 1:20 PM EDT Laboratory Laboratory [facility] Mares [address] [place] [address] [facility] [address] [place] [address] Atrial fibrillation (HCC) 01/01/2024 6:15 AM EDT Anticoagulation Pharmacy Call Center [address] [place] [address] [facility] [address] [place] [address] 01/20/2024 2:15 PM EDT Office Visit Urogynecology Gerald Saunders [address] [place] [address] Manav Sequeira MD [address] [place] [address] Nurse Lee Saunders [address] [place] [address] 02/03/2024 2:00 PM EDT Imaging Cardiac Studies, [facility]s Mistry [address] [place] [address] 02/04/2024 11:00 AM EDT Office Visit Cardiology, [facility] [address] [place] [address] Michele Cooper PA-C [address] [place] [address] Pending Results Name Type Priority Associated Diagnoses Date /Time STREP A SCREEN, POINT OF CARE (ENTER/EDIT) Point of Care Testing Routine Strep sore throat 12/25/2023 12:41 PM EDT Scheduled Orders Name Type Priority Associated Diagnoses Orde r Schedule GROUP A STREP PCR Lab Routine Strep sore throat Ordered: 12/25/2023 Scheduled Procedures Name Priority Associated Diagnoses Date/Ti me COLONOSCOPY FLEXIBLE PROXIMAL DIAGNOSTIC Recall History of colon polyps Health Maintenance Due Date Last Done Comments HIV Screening 1976 Hepatitis C Screening 12/22/1979 HPV/Co-Test 12/22/1991 LUNG CANCER SCREENING - USE SMARTSET 07952 12/22/2011 Depression Screening 02/05/2017 02/06/2016 COVID-19 Vaccine ( - season) 2023 07/05/2021, 06/07/2021 Mammogram 03/17/2024 03/17/2023, [...] this encounter Medical Devices Implanted Type Area Antique Clocks Repairer Device Identifier Shelf Expiration Date Model / Serial / Lot Sut Steel 6 [id number] - [id number] Implanted:Qty : 4 on 10/02/2015 by Kevin Arciniega MD at [place] [facility] N/A: Sternum JNJ : [employer] 08/14/2020 [id number] / / [id number] Valve Heart Aortic [facility] Hp21mm - [id number] - [id number] Implanted:Qty : 1 on 10/02/2015 by Kevin Arciniega MD at [place] [facility] N/A: Heart [facility] : CARDIOVASCULAR 03/30/2019 [id number] / [id number] / Valve [facility] [place] Mitral [id number] - [id number] - [id number] Implanted:Qty : 1 on 10/02/2015 by Kevin Arciniega MD at [place] [facility] N/A: Heart [facility] [place] : CARDIOVASCULAR 03/07/2019 [id number] / [id number] / documented as of this encounter Visit Diagnoses Diagnosis Strep sore throat- Primary Streptococcal sore throat Atrial fibrillation (HCC) Atrial fibrillation documented in this encounter Advance Directives Latest Code Status on File Code Status Date Activated Date Inactivated Comments Full Code 10/02/2015 11:47 AM 10/10/2015 5:43 PM This order reflects the patients wishes and were consensually agreed upon. Care Teams Credit Risk Associate Relationship Specialty Start Date End Date Bhavna Obando DO [address] [place] [address] PCP - General Family Medicine 01/03/22 documented as of this encounter
--- OUTSIDE RECORDS SUMMARY | 2024-01-04 01:29 | External Medical Summary | Summary of Care ---
Author Name Unknown Organization [facility] Address [address] [facility] [place] [address] Phone [phone] Care Team Providers Care X Ray Equipment Servicer Name Role Phone Bhavna Obando DO Primary Care Provider [phone] Reason for Visit * Reason Onset Date Comments Advice 12/09/2023 Encounter Details Date Type Department Care Team (Late st Contact Info) Description 12/09/2023 Telephone Cardiology, [facility] [address] [place] [address] Michele Cooper PAMontserrat [address] [place] [address] Advice Allergies Active Allergy Reactions Criticality Noted Date Comments Benzocaine 09/06/2008 Ear drops Nsaids 01/29/2008 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 documented as of this encounter (statuses as of 12/12/2023) Medications Medication Sig Dispensed Refills Start Date End Date Status valACYclovir (VALTREX) 1000 MG TabletIndications :Herpes simplex virus infection take 2 tablets by mouth every 12 hours 4 Tab 3 6 Active Additional Information Patient not taking.Reported on 07/24/2022 Multi-Vitamin Daily Oral Tablet Start: 03/20/21 7:25:00 [...] TO SINGLE JOINT OF LOWER EXTREMITIES, Pharmacy: [address] 100 g 5 2 Active Oxybutynin Chloride ER 10 MG Oral Tablet Extended Release 24 Hour (Ditropan XL)Indications:OA B (overactive bladder) Take 1 Tablet (10 mg) by mouth in the morning. Do not cut, crush or chew. 30 Tablet 11 2 Active Additional Information Patient not taking.Reported on 11/11/2023 amLODIPine Besylate 2.5 MG Oral Tablet (Norvasc)Indicati ons:Paroxysmal atrial fibrillation (HCC) TAKE ONE TABLET BY MOUTH IN THE MORNING 90 Tablet 4 3 Active Metoprolol Tartrate 50 MG Oral Tablet (Lopressor)Indica tions:Paroxysmal atrial fibrillation (HCC) TAKE ONE TABLET BY MOUTH IN THE MORNING AND ONE BEFORE BEDTIME 180 Tablet 3 3 Active ProAir HFA 108 (90 Base) MCG/ACT Inhalation Aerosol SolutionIndicatio ns:Bronchitis inhale 2 puffs by mouth four times a day if needed 8.5 g 3 3 Active busPIRone HCl 10 MG Oral Tablet (Buspar)Indicatio ns:Anxiety TAKE ONE TABLET BY MOUTH IN THE MORNING AND ONE BEFORE BEDTIME 60 Tablet 5 3 Active Escitalopram Oxalate 20 MG Oral Tablet (Lexapro) TAKE 1 TABLET BY MOUTH EVERY MORNING 90 Tablet 3 3 Active Additional Information Patient not taking.Reported on 11/11/2023 Levothyroxine Sodium 112 MCG Oral Tablet (Levoxyl)Indicati ons:Hypothyroidis m, postablative TAKE 1 TABLET BY MOUTH DAILY FIRST THING IN THE MORNING. 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 0 09/26/2003 MITRAL STENOSIS W INSUFF 01/14/2003 Viral warts 03/04/2001 Overview: ICD-10 update of inactive term Herpes simplex virus infection 09/09/2000 AC PROLIFERAT NEPHRITIS 07/01/2000 RHEUMATIC HEART DIS NOS 05/23/2000 Lipoma 01/09/2000 Overview: ICD-10 update of inactive term MUSCULAR BACK PAIN 12/10/1999 Endometriosis 12/10/1999 documented as of this encounter (statuses as of 12/12/2023) Resolved Problems Problem Noted Date Diagnosed Date Resolved Date Hyperthyroidism 06/15/2014 09/28/2015 Bipolar I disorder, most rec ent episode manic, moderate 07/14/2013 11/11/2023 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 * Telephone Encounter - John Becerra RN - 12/12/2023 11:26 AM EDT Pending Prescriptions: Disp Refills Amoxicillin 500 MG Oral Capsule (Amoxil) 4 Caps*11 Sig: Take four tablets one hour prior to dental work Last Visit: 01/14/2022 (in office), Visit date not found (telemedicine) Next Visit: 02/04/2024 Last medication order date: 01/14/2022 Have you choosen a preferred pharm?? yes Patient Active Problem List Diagnosis Code MUSCULAR BACK PAIN M54.9 Endometriosis N80.9 Lipoma D17.9 RHEUMATIC HEART DIS NOS I09.9 AC PROLIFERAT NEPHRITIS N00.8 Herpes simplex virus infection B00.9 Viral warts B07.9 MITRAL STENOSIS W INSUFF I05.2 FPC current use of anticoagulant therapy Z79.01 Atrial fibrillation (HCC) I48.91 NONALLERGIC RHINITIS J31.0 Postnasal drip R09.82 Aortic valve stenosis I35.0 Mitral valve regurgitation I34.0 History of Graves' disease Z86.39 History of hyperthyroidism Z86.39 S/P AVR (aortic valve replacement) Z95.2 S/P MVR (mitral valve replacement) Z95.2 Hypothyroidism, 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 Paroxysmal atrial fibrillation (HCC) I48.0 Mitral valve insufficiency, unspecified etiology I34.0 Status post mitral valve replacement Z95.2 Status post aortic valve replacement Z95.2 Rheumatic valvular disease I09.1 OAB (overactive bladder) N32.81 Labs: Lab Results Component Value Date/Time CREATININE - [facility] 0.9 11/11/2023 11:40 AM CREATININE - [facility] 0.8 11/30/2015 01:55 PM CREATININE, RANDOM URINE - [facility] 24 11/11/2023 11:43 AM CREATININE, RANDOM URINE - [facility] 48 07/01/2000 09:55 PM Lab Results Component Value Date/Time POTASSIUM - [facility] 4.5 11/11/2023 11:40 AM POTASSIUM - [facility] 4.4 11/30/2015 01:55 PM POTASSIUM POCT - [facility] 5.0 10/02/2015 10:53 AM POTASSIUM, WHOLE BLOOD - [facility] 4.5 10/02/2015 11:00 PM Lab Results Component Value Date/Time TSH - [facility] 1.73 11/11/2023 11:40 AM TSH - [facility] 3.40 10/07/2016 08:34 AM Lab Results Component Value Date/Time LDL CHOLESTEROL (CALCULATED) - [facility] 116 11/11/2023 11:40 AM LDL CHOLESTEROL (CALCULATED) - [facility] 96 02/11/2023 09:19 AM LDL CHOLESTEROL (CALCULATED) - [facility] 121 04/01/2016 01:39 PM LDL CHOLESTEROL (CALCULATED) - [facility] 75 01/24/2010 08:59 AM LDL CHOLESTEROL (DIRECT MEASURE) - [facility] NOT APPLICABLE 04/01/2016 01:39 PM LDL CHOLESTEROL (DIRECT MEASURE) - [facility] 84 12/12/2010 05:00 PM LDL CHOLESTEROL (DIRECT MEASURE) - [facility] 84 06/21/2008 03:10 PM Lab Results Component Value Date/Time ALT - [facility] 37 (H) 11/11/2023 11:40 AM ALT - [facility] 23 09/06/2015 12:18 PM Hemoglobin AIC Results: Lab Results Component Value Date/Time HEMOGLOBIN A1C - [facility] 5.2 09/06/2015 12:18 PM HEMOGLOBIN A1C - [facility] 5.2 06/21/2008 03:10 PM * Telephone Encounter - Maegan Whatley OSA - 12/09/2023 9:55 AM EDT Person calling: Yahaira Relationship to patient: patient Number to return call: [phone] Reason for call: Patient is requesting amoxacillin be prescribed for an upcoming dental cleaning on 01/07/24. Please advise. Pharmacy: [facility] Provider Name:Allison documented in this encounter Plan of Treatment Upcoming Encounters Date Type Department Care Team (Late st Contact Info) Description 12/31/2023 2:20 PM EDT Laboratory Laboratory, [place] [address] [place] [address] [facility] Laboratory [facility] [place] [address] 01/01/2024 6:15 AM EDT Anticoagulation Pharmacy Call Center [phone] [facility] [place] [address] [facility] 58 60 [facility] [place] [address] 01/20/2024 2:15 PM EDT Office Visit Urogynecology [facility] [address] [place] [address] Manav Sequeira MD [address] [place] [address] Nurse Lee Saunders Lin [address] [place] [address] 02/03/2024 2:00 PM EDT Imaging Cardiac Studies, [place] [facility] [address] [place] [address] 02/04/2024 11:00 AM EDT Office Visit Cardiology, Gerald [facility] [address] [place] [address] Michele Cooper PA-C [address] [place] [address] Scheduled Procedures Name Priority Associated Diagnoses Date/Ti me COLONOSCOPY FLEXIBLE PROXIMAL DIAGNOSTIC Recall History of colon polyps Health Maintenance Due Date Last Done Comments HIV Screening 1975 Hepatitis C Screening 12/22/1979 HPV/Co-Test 12/22/1991 LUNG CANCER SCREENING - USE SMARTSET 65009 12/22/2011 Depression Screening 02/05/2017 02/06/2016 COVID-19 Vaccine ( season) 2023 07/05/2021, 06/07/2021 Influenza Vaccine (FLU shot) (#1) 2023 06/15/2022, 05/30/2016, 04/19/2015, Additional history exists Mammogram 03/17/2024 03/17/2023, 02/15, 04/11/2016, Additional history exists DTaP,Tdap,and Td Vaccines (3 - Td or Tdap) 04/12/2024 04/12/2014, 07/20/2007 TSH 11/11/2024 11/11/2023, 01/15, 01/03/2022, Additional history exists Cervical Cancer Screening 03/25/2025 Pap Smear 03/25/2025 03/25/2022, 10/09/2012, 03/31/2012, Additional history exists Diabetes Screening 11/11/2026 [...] this encounter Medical Devices Implanted Type Area Electric Dolly Operator Device Identifier Shelf Expiration Date Model / Serial / Lot Sut Steel 6 M654g - [id number] Implanted:Qty : 4 on 10/02/2015 by [place] Arcin[place]ga [place] [facility]: Sternum JNJ : [employer] 08/14/2020 M654G / / [id number] Valve Heart Aortic [facility] Hp21mm - [id number] - [id number] Implanted:Qty : 1 on 10/02/2015 by Kevin Arciniega MD at [place] [facility] N/A: Heart ST CHAPO : CARDIOVASCULAR 03/30/2019 21AFHPJ-50 5 / [id number] / Valve St Chapo Mitral 31mj-501 - [id number] - [id number] Implanted:Qty : 1 on 10/02/2015 by Kevin Arciniega MD at [place] [facility] N/A: Heart ST CHAPO : CARDIOVASCULAR 03/07/2019 31MJ-501 / [id number] / documented as of this encounter Visit Diagnoses Diagnosis RHEUMATIC HEART DIS NOS Rheumatic heart disease, unspecified documented in this encounter Advance Directives Latest Code Status on File Code Status Date Activated Date Inactivated Comments Full Code 10/02/2015 11:47 AM 10/10/2015 5:43 PM This order reflects the patients wishes and were consensually agreed upon. Care Teams X Ray Equipment Servicer Relationship Specialty Start Date End Date Bhavna Obando DO [address] [place] [address] PCP - General Family Medicine 01/03/22 documented as of this encounter
--- OUTSIDE RECORDS SUMMARY | 2024-01-04 01:29 | External Medical Summary | Summary of Care ---
Author Name Unknown Organization [facility] Address [address] [facility] [place] [address] Phone [phone] Care Team Providers Care Lobster Catcher Name Role Phone Bhavna Obando DO Primary Care Provider [phone] Reason for Visit * Reason Onset Date Comments Advice 12/09/2023 Encounter Details Date Type Department Care Team (Late st Contact Info) Description 12/09/2023 Telephone Cardiology, [facility] [address] [place] [address] Michele Cooper PAMontserrat [address] [place] [address] Advice Allergies Active Allergy Reactions Criticality Noted [...] TO SINGLE JOINT OF LOWER EXTREMITIES, Pharmacy: [address] 100 g 5 2 Active Oxybutynin [...] 05/27/2008 Postnasal drip 05/27/2008 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 Please advise. Pharmacy: [facility] Provider Name:Allison documented in this encounter Plan of Treatment Upcoming Encounters Date Type Department Care Team (Late st Contact Info) Description 12/31/2023 2:20 PM EDT Laboratory Laboratory, [place] [address] [place] [address] [facility] Laboratory [facility] [place] [address] 01/01/2024 6:15 AM EDT Anticoagulation Pharmacy Call Center [phone] [facility] [place] [address] [facility] 58 60 [facility] [place] [address] 01/20/2024 2:15 PM EDT Office Visit Urogynecology [facility] [address] [place] [address] Manav Sequeira MD [address] [place] [address] Nurse Lee Saunders Lin [address] [place] [address] 02/03/2024 2:00 PM EDT Imaging Cardiac Studies, [place] [address] [place] [address] 02/04/2024 11:00 AM EDT Office Visit Cardiology, [facility] [address] [place] [address] Michele Cooper PA-C [address] [place] [address] Scheduled Procedures Name Priority Associated Diagnoses Date/Ti me COLONOSCOPY FLEXIBLE PROXIMAL DIAGNOSTIC Recall History of colon polyps Health Maintenance Due Date Last Done Comments HIV Screening 1975 Hepatitis C Screening 12/22/1979 HPV/Co-Test 12/22/1991 LUNG CANCER SCREENING - USE SMARTSET 44728 12/22/2011 Depression Screening 02/05/2017 02/06/2016 COVID-19 Vaccine [...] this encounter Medical Devices Implanted Type Area Chain Sales Consultant Device Identifier Shelf Expiration Date Model / Serial / Lot Sut Steel 6 M654g - [id number] Implanted:Qty : 4 on 10/02/2015 by Kevin Arciniega MD at [place] [facility] [place] N/A: Sternum JNJ : [employer] 08/14/2020 M654G / / [id number] Valve Heart Aortic [facility] Hp21mm - [id number] - [id number] Implanted:Qty : 1 on 10/02/2015 by Kevin Arciniega MD at OR [facility] [place] N/A: Heart [employer] CHAPO : CARDIOVASCULAR 03/30/2019 21AFHPJ-50 5 / [id number] / Valve St Chapo Mitral 31mj-501 - [id number] - [id number] Implanted:Qty : 1 on 10/02/2015 by Kevin Arciniega MD at OR [facility] [place] N/A: Heart [employer] CHAPO : CARDIOVASCULAR 03/07/2019 31MJ-501 / [id number] / documented as of this encounter Visit Diagnoses Diagnosis RHEUMATIC HEART DIS NOS Rheumatic heart disease, unspecified documented in this encounter Advance Directives Latest Code Status on File Code Status Date Activated Date Inactivated Comments Full Code 10/02/2015 11:47 AM 10/10/2015 5:43 PM This order reflects the patients wishes and were consensually agreed upon. Care Teams Lobster Catcher Relationship Specialty Start Date End Date Bhavna Obando DO [address] [place] [address] PCP - General Family Medicine 01/03/22 documented as of this encounter
--- OUTSIDE RECORDS SUMMARY | 2024-01-04 01:29 | External Medical Summary | Summary of Care ---
Author Name Unknown Organization [facility] Address [address] [place] [address] Phone [phone] Care Team Providers Care Dog Raiser Name Role Phone Bhavna Obando DO Primary Care Provider [phone] Reason for Visit * Reason Comments Outpatient Testing Encounter Details Date Type Department Care Team (Late st Contact Info) Description 12/03/2023 2:20 PM EDT Laboratory Laboratory, [place] [address] [place] [address] [place], [facility] [address] [place], [place] [id number] Atrial fibrillation (HCC) Allergies Active Allergy Reactions Criticality Noted Date Comments Benzocaine 09/06/2008 Ear drops Nsaids 01/29/2008 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 documented as of this encounter (statuses as of 12/03/2023) Medications Medication Sig Dispensed Refills Start Date End Date Status valACYclovir (VALTREX) 1000 MG TabletIndications: Herpes simplex virus infection take 2 tablets by mouth every 12 hours 4 Tab 3 07/03/2016 Active Additional Information Patient not taking.Reported on [...] TO SINGLE JOINT OF LOWER EXTREMITIES, Pharmacy: [address] 100 g 5 01/03/2022 Active Amoxicillin 500 MG Oral Capsule (Amoxil)Indication s:Rheumatic heart disease Take four tablets one hour prior to dental work 4 Capsule 11 01/14/2022 Active Oxybutynin Chloride ER 10 MG Oral Tablet Extended Release 24 Hour (Ditropan XL)Indications:OAB (overactive bladder) Take 1 Tablet (10 mg) by mouth in the morning. Do not cut, crush or chew. 30 Tablet 11 08/20/2022 Active Additional Information Patient not taking.Reported on 11/11/2023 amLODIPine Besylate 2.5 MG Oral Tablet (Norvasc)Indicatio ns:Paroxysmal atrial fibrillation (HCC) TAKE ONE TABLET BY MOUTH IN THE MORNING 90 Tablet 4 01/31/2023 Active Metoprolol Tartrate 50 MG Oral Tablet (Lopressor)Indicat ions:Paroxysmal atrial fibrillation (HCC) TAKE ONE TABLET BY MOUTH IN THE MORNING AND ONE BEFORE BEDTIME 180 Tablet 3 02/15/2023 Active ProAir HFA 108 (90 Base) MCG/ACT Inhalation Aerosol SolutionIndication s:Bronchitis inhale 2 puffs by mouth four times a day if needed 8.5 g 3 03/31/2023 Active busPIRone HCl 10 MG Oral Tablet (Buspar)Indication s:Anxiety TAKE ONE TABLET BY MOUTH IN THE MORNING AND ONE BEFORE BEDTIME 60 Tablet 5 04/20/2023 Active Escitalopram Oxalate 20 MG Oral Tablet (Lexapro) TAKE 1 TABLET BY MOUTH EVERY MORNING 90 Tablet 3 04/21/2023 Active Additional Information Patient not taking.Reported on 11/11/2023 Levothyroxine Sodium 112 MCG Oral Tablet (Levoxyl)Indicatio ns:Hypothyroidism, postablative TAKE 1 TABLET BY MOUTH DAILY FIRST THING IN THE MORNING. 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 0 09/26/2003 MITRAL STENOSIS W INSUFF 01/14/2003 Viral warts 03/04/2001 Overview: ICD-10 update of inactive term Herpes simplex virus infection 09/09/2000 AC PROLIFERAT NEPHRITIS 07/01/2000 RHEUMATIC HEART DIS NOS 05/23/2000 Lipoma 01/09/2000 Overview: ICD-10 update of inactive term MUSCULAR BACK PAIN 12/10/1999 Endometriosis 12/10/1999 documented as of this encounter (statuses as of 12/03/2023) Resolved Problems Problem Noted Date Diagnosed Date Resolved Date Hyperthyroidism 06/15/2014 09/28/2015 Bipolar I disorder, most rec ent episode manic, moderate 07/14/2013 11/11/2023 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 58 60 [facility] [place] [address] 01/20/2024 2:15 PM EDT Office Visit Urogynecology Gerald Saunders [address] [place] [address] Manav Sequeira MD [address] [place] [address] Nurse Lee Saunders [address] [place] [address] 02/03/2024 2:00 PM EDT [facility] [address] [place] [address] 02/04/2024 11:00 AM EDT [facility] [address] [place] [address] Michele Cooper PA-C [address] [place] [address] Pending Results Name Type Priority Associated Diagnoses Date /Time PT INR Lab Routine Atrial fibrillation (HCC) 12/03/2023 2:20 PM EDT Scheduled Procedures Name Priority Associated Diagnoses Date/Ti me COLONOSCOPY FLEXIBLE PROXIMAL DIAGNOSTIC Recall History of colon polyps Health Maintenance Due Date Last Done Comments HIV Screening 1975 Hepatitis C Screening 12/22/1979 HPV/Co-Test 12/22/1991 LUNG CANCER SCREENING - USE SMARTSET 05942 12/22/2011 Depression Screening 02/05/2017 02/06/2016 COVID-19 Vaccine [...] this encounter Medical Devices Implanted Type Area Building Maintenance Mechanic Device Identifier Shelf Expiration Date Model / Serial / Lot Sut Steel 6 M654g - [id number] Implanted:Qty : 4 on 10/02/2015 by Kevin Arciniega MD at [place] [facility] [place] N/A: Sternum JNJ : [employer] 08/14/2020 M654G / / [id number] Val[facility]ortic [facility] Hp[facility] - [id number] - [id number] Implanted:Qty : 1 on 10/02/2015 by Kevin Arciniega MD at [place] [facility] [place] N/A: Heart ST CHAPO : CARDIOVASCULAR 03/30/2019 21AFHPJ-50 5 / [id number] / Valve [facility] Chapo Mitral 31mj-501 - [id number] - [id number] Implanted:Qty : 1 on 10/02/2015 by Kevin Arciniega MD at [place] [facility] [place] N/A: Heart ST CHAPO : CARDIOVASCULAR 03/07/2019 31MJ-501 / [id number] / documented as of this encounter Visit Diagnoses Diagnosis Atrial fibrillation (HCC) Atrial fibrillation documented in this encounter Advance Directives Latest Code Status on File Code Status Date Activated Date Inactivated Comments Full Code 10/02/2015 11:47 AM 10/10/2015 5:43 PM This order reflects the patients wishes and were consensually agreed upon. Care Teams Dog Raiser Relationship Specialty Start Date End Date Bhavna Obando DO [address] [place] [address] PCP - General Family Medicine 01/03/22 documented as of this encounter
--- OUTSIDE RECORDS SUMMARY | 2024-01-04 01:29 | External Medical Summary | Summary of Care ---
Author Name Unknown Organization [facility] Address [address] [facility] [place] [address] Phone [phone] Care Team Providers Care Tire Beader Maker Name Role Phone Bhavna Obando DO Primary Care Provider +1 [phone] Reason for Visit * Reason Comments Dosage Adjustment Via Phone (anticoag Cl inic) Encounter Details Date Type Department Care Team (Latest Contact Info) Description 11/12/2023 6:15 AM EST Anticoagulation Pharmacy Call Center [address] [facility] [place] [address] [facility] [address] [place] [address] Atrial fibrillation, unspecified type (HCC)*; Rheumatic aortic stenosis; Paroxysmal atrial fibrillation (HCC); Mitral valve insufficiency, unspecified etiology Allergies Active Allergy Reactions Criticality Noted Date Comments Benzocaine 09/06/2008 Ear drops Nsaids 01/29/2008 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 documented as of this encounter (statuses as of 11/12/2023) Medications Medication Sig Dispensed Refills Start Date [...] TO SINGLE JOINT OF LOWER EXTREMITIES, [facility] [address] [address] g 5 01/03/2022 Active Amoxicillin [...] as of this encounter (statuses as of 11/12/2023) Active Problems Problem Noted Date Diagnosed Date [...] 05/27/2008 Postnasal drip 05/27/2008 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 0 09/26/2003 MITRAL STENOSIS W INSUFF 01/14/2003 Viral warts 03/04/2001 Overview: ICD-10 update of inactive term Herpes simplex virus infection 09/09/2000 AC PROLIFERAT NEPHRITIS 07/01/2000 RHEUMATIC HEART DIS NOS 05/23/2000 Lipoma 01/09/2000 Overview: ICD-10 update of inactive term MUSCULAR BACK PAIN 12/10/1999 Endometriosis 12/10/1999 documented as of this encounter (statuses as of 11/12/2023) Resolved Problems Problem Noted Date Diagnosed Date Resolved Date Hyperthyroidism 06/15/2014 09/28/2015 Bipolar I disorder, most rec ent episode manic, moderate 07/14/2013 11/11/2023 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 017 Other and unspecified rheuma tic heart diseases(398.99) 05/22/2007 05/27/2008 Anticoagulation management encounter 01/14/2003 05/27/2008 Allergic rhinitis 01/09/2000 05/27/2008 documented as of this encounter (statuses as of 11/12/2023) Immunizations Name Administration Dates Next Due COVID-19 [...] as of this encounter Progress Notes * Mesha Ayala PHARM Tech - 11/12/2023 9:17 AM EST Contacts Type Contact Phone/Fax 11/12/2023 09:15 AM EST Phone (Outgoing) Yahaira Worthy (Self) [phone] (M) Left Message Subjective Advised patient to contact Anticoagulation Clinic if any unusual bruising or bleeding, recent illness, changes in medication, or questions/concerns. PT/INR results, Coumadin dose instructions, and next PT/INR date communicated as noted by Pharmacist: Yes SERVANDO Kirby 11/12/2023, 9:17 AM * Linda Ahn [facility] - 11/12/2023 8:53 AM EST Images from the original note were not included. Coumadin Clinic (region specific) Objective Current Warfarin Dose As of 11/12/2023 Warfarin maintenance plan: 10 mg (5 mg x 2) every Mon, Wed, Fri; 7.5 mg (5 mg x 1.5) all other days INR Result As of 11/12/2023 INR goal: 2.5-3.5 INR used for dosin.0 (11/11/2023) Assessment & Plan Warfarin Plan As of 11/12/2023 Full warfarin instructions: 11/12: 15 mg; Otherwise 10 mg every Mon, Wed, Fri; 7.5 mg all other days Next INR check: 12/09/2023 Repeat PT/INR in 4 week(s) Weekly dose: not changed Additional Dosing Information: Description [place] Payroll Officer to contact patient with dose instructions as noted. Linda Ahn RPh 11/12/2023, 8:54 AM documented in this encounter Plan of Treatment Upcoming Encounters Date Type Department Care Team (Late st Contact Info) Description 11/18/2023 8:40 AM EST [facility] [address] [place] [phone] Kavita Barahona DO [address] [place] [address] 11/26/2023 12:00 PM EDT Laboratory Laboratory, [place] [address] [place] [phone] [place], Laboratory [address] [place] [address] 11/27/2023 6:15 AM EDT Anticoagulation Pharmacy Call Center WB [address] [facility] [place] [address] [facility] 58 60 [facility] [place] [address] 01/20/2024 2:15 PM EDT Office Visit Urogynecology Gerald Saunders [address] [place] [address] Manav Sequeira MD [address] [place] [address] Nurse Lee Saunders Lin [address] [place] [address] 02/03/2024 2:00 PM EDT [facility] [address] [place] [address] 02/04/2024 11:00 AM EDT [facility] [place] [address] Michele Cooper PA-C [address] [place] [address] Scheduled Procedures Name Priority Associated Diagnoses Date/Ti me COLONOSCOPY FLEXIBLE PROXIMAL DIAGNOSTIC Recall History of colon polyps Health Maintenance Due Date Last Done Comments HIV Screening 1975 Hepatitis C Screening 12/22/1979 HPV/Co-Test 12/22/1991 LUNG CANCER SCREENING - USE SMARTSET 38933 12/22/2011 Depression Screening 02/05/2017 02/06/2016 COVID-19 Vaccine [...] this encounter Medical Devices Implanted Type Area Assistant Manager Quality Management Device Identifier Shelf Expiration Date Model / Serial / Lot Sut Steel 6 M654g - [id number] Implanted:Qty : 4 on 10/02/2015 by Kevin Arciniega MD at OR [facility] N/A: Sternum JNJ : [employer] 08/14/2020 M654G / / [id number] Valve Heart Aortic [facility] Hp21mm - [id number] - [id number] Implanted:Qty : 1 on 10/02/2015 by Kevin Arciniega MD at OR [facility] N/A: Heart ST CHAPO : CARDIOVASCULAR 03/30/2019 21AFHPJ-50 5 / [id number] / Valve St Chapo Mitral 31mj-501 - [id number] - [id number] Implanted:Qty : 1 on 10/02/2015 by Kevin Arciniega MD at OR [facility] N/A: Heart [employer] CHAPO : CARDIOVASCULAR 03/07/2019 31MJ-501 / [id number] / documented as of this encounter Visit [...] and were consensually agreed upon. Care Teams Tire Beader Maker Relationship Specialty Start Date End Date Bhavna Obando DO [address] [place] [address] PCP - General Family Medicine 01/03/22 documented as of this encounter
--- OUTSIDE RECORDS SUMMARY | 2024-01-04 01:29 | External Medical Summary ---
Author Name Unknown Address Unknown Organization K01:[facility] [address] [place] [address] Laboratory Report Ordering Provider Test Date Status SIDNEY ALBERTS 12/03/2023 14:20:34 Final Please draw PT/INR every 1-4 weeks or as requested by the [facility] [address] Coumadin Clinic

Warfarin Therapy
INR: 2.0-3.0 conventional anticoagulation
INR: 2.5-3.5 high intensity anticoagulation Observation Date Value Abnormality Reference (Units ) Status PT 12/03/2023 14:20:34 29.1 Above high normal 11 .6-15.2 (seconds) Final INR 12/03/2023 14:20:34 2.7 Above high normal 0. 8-1.2 Final Performing Location [facility] [address] [place] [address]
--- OUTSIDE RECORDS SUMMARY | 2024-01-04 01:29 | External Medical Summary | Summary of Care ---
Author Name Unknown Organization [facility] Address [address] [facility] [place] [address] Phone [phone] Care Team Providers Care Concession Cashier Name Role Phone Bhavna Obando DO Primary Care Provider [phone] [phone] Reason for Visit * Reason Comments Dosage Adjustment Via Phone (anticoag Cl inic) Encounter Details Date Type Department Care Team (Latest Contact Info) Description 12/04/2023 6:15 AM EDT Anticoagulation Pharmacy Call Center [address] [facility] [place] [address] [facility] 58 60 [facility] [place] [address] Atrial fibrillation, unspecified type (HCC)*; Rheumatic aortic stenosis; Paroxysmal atrial fibrillation (HCC); Mitral valve insufficiency, unspecified etiology Allergies Active Allergy Reactions Criticality Noted Date Comments Benzocaine 09/06/2008 Ear drops Nsaids 01/29/2008 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 documented as of this encounter (statuses as of 12/04/2023) Medications Medication Sig Dispensed Refills Start Date [...] TO SINGLE JOINT OF LOWER EXTREMITIES, 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 0 09/26/2003 MITRAL STENOSIS W INSUFF 01/14/2003 Viral warts 03/04/2001 Overview: ICD-10 update of inactive term Herpes simplex virus infection 09/09/2000 AC PROLIFERAT NEPHRITIS 07/01/2000 RHEUMATIC HEART DIS NOS 05/23/2000 Lipoma 01/09/2000 Overview: ICD-10 update of inactive term MUSCULAR BACK PAIN 12/10/1999 Endometriosis 12/10/1999 documented as of this encounter (statuses as of 12/04/2023) Resolved Problems Problem Noted Date Diagnosed Date Resolved Date Hyperthyroidism 06/15/2014 09/28/2015 Bipolar I disorder, most rec ent episode manic, moderate 07/14/2013 11/11/2023 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 017 Other and unspecified rheuma tic heart diseases(398.99) 05/22/2007 05/27/2008 Anticoagulation management encounter 01/14/2003 05/27/2008 Allergic rhinitis 01/09/2000 05/27/2008 documented as of this encounter (statuses as of 12/04/2023) Immunizations Name Administration Dates Next Due COVID-19 [...] as of this encounter Progress Notes * Hina Rich PHARM Tech - 12/04/2023 10:08 AM EDT Contacts Type Contact Phone/Fax 12/04/2023 10:03 AM EDT Phone (Outgoing) Yahaira Worthy J (Self) [phone] (M) Left Message Subjective Advised patient to contact Anticoagulation Clinic if any unusual bruising or bleeding, recent illness, changes in medication, or questions/concerns. PT/INR results, Coumadin dose instructions, and next PT/INR date communicated as noted by Pharmacist: Yes SERVANDO HUERTA 12/04/2023, 10:08 AM * Linda Anh [facility] - 12/04/2023 8:08 AM EDT Coumadin Clinic (region specific) Objective Current Warfarin Dose As of 12/04/2023 Warfarin maintenance plan: 10 mg (5 mg x 2) every Mon, Wed, Fri; 7.5 mg (5 mg x 1.5) all other days INR Result As of 12/04/2023 INR goal: 2.5-3.5 INR used for dosin.7 (12/03/2023) Assessment & Plan Warfarin Plan As of 12/04/2023 Full warfarin instructions: 10 mg every Mon, Wed, Fri; 7.5 mg all other days No change documented: Linda Ahn RPh Next INR check: 12/31/2023 Repeat PT/INR in 4 week(s) Weekly dose: not changed Additional Dosing Information: Description [place] Asp Net Developer to contact patient with dose instructions as noted. Linda Ahn RPh 12/04/2023, 8:08 AM documented in this encounter Plan of Treatment Upcoming Encounters Date Type Department Care Team (Late st Contact Info) Description 12/31/2023 2:20 PM EDT Laboratory Laboratory, [place] [address] [place] [phone] [place], Laboratory [address] [place] [address] 01/01/2024 6:15 AM EDT Anticoagulation Pharmacy Call Center [address] [place] [address] [facility] [address] [place] [address] 01/20/2024 2:15 PM EDT Office Visit Urogynecology Gerald Saunders [address] [place] [address] Manav Sequeira MD [address] [place] [address] Nurse Lee Saunders [address] [place] [address] 02/03/2024 2:00 PM EDT Imaging Cardiac Studies, Gerald Saunders [place] [address] [place] [address] 02/04/2024 11:00 AM EDT Office Visit Cardiology, [facility] [address] [place] [address] Michele Cooper PA-C [address] [place] [address] Scheduled Procedures Name Priority Associated Diagnoses Date/Ti me COLONOSCOPY FLEXIBLE PROXIMAL DIAGNOSTIC Recall History of colon polyps Health Maintenance Due Date Last Done Comments HIV Screening 1975 Hepatitis C Screening 12/22/1979 HPV/Co-Test 12/22/1991 LUNG CANCER SCREENING - USE SMARTSET 00013 12/22/2011 Depression Screening 02/05/2017 02/06/2016 COVID-19 Vaccine [...] this encounter Medical Devices Implanted Type Area Depilatory Painter Device Identifier Shelf Expiration Date Model / Serial / Lot Sut Steel 6 M654g - [id number] Implanted:Qty : 4 on 10/02/2015 by Kevin Arciniega MD at OR [facility] [place] N/A: Sternum JNJ : [employer] 08/14/2020 M654G / / [id number] Val[facility] Hp[facility]mm - [id number] - [id number] Implanted:Qty : 1 on 10/02/2015 by Kevin Arciniega MD at OR [facility] [place] N/A: Heart [facility] CHAPO : CARDIOVASCULAR 03/30/2019 21AFHPJ-50 5 / [id number] / Valve [facility] Chapo Mitral 31mj-501 - [id number] - [id number] Implanted:Qty : 1 on 10/02/2015 by Kevin Arciniega MD at OR [facility] [place] N/A: Heart ST CHAPO : CARDIOVASCULAR 03/07/2019 31MJ-501 / [id number] / documented as of this encounter Visit [...] and were consensually agreed upon. Care Teams Concession Cashier Relationship Specialty Start Date End Date Bhavna Obando DO [address] [place] [address] PCP - General Family Medicine 01/03/22 documented as of this encounter
--- OUTSIDE RECORDS SUMMARY | 2024-01-04 01:29 | External Medical Summary | Summary of Care ---
Author Name Unknown Organization [facility] Address [address] [facility] [place] [address] Phone [phone] Care Team Providers Care Hr Receptionist Name Role Phone Bhavna Obando DO Primary Care Provider [phone] Reason for Visit * Reason Comments Outpatient Testing Encounter Details Date Type Department Care Team (Late st Contact Info) Description 12/25/2023 1:20 PM EDT Laboratory Laboratory [facility] [place] [address] [place] [phone] [facility] Lab [facility] [address] [place] [address] Atrial fibrillation (HCC) Allergies Active Allergy Reactions [...] SINGLE JOINT OF LOWER EXTREMITIES, Pharmacy: [facility] 100 g 5 01/03/2022 Active amLODIPine [...] 05/27/2008 Postnasal drip 05/27/2008 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/22/2007 intermediate current use of anticoagulant therapy 0 09/26/2003 [...] Care Team (Late st Contact Info) Description 01/01/2024 6:15 AM EDT Anticoagulation Pharmacy Call Center WB [address] [facility] [place] [address] [facility], [facility] 58 60 [facility] [place] [address] 01/20/2024 2:15 PM EDT Office Visit Urogynecology [facility] [address] [place] [address] Manav Sequeira MD [address] [place] [address] Nurse Lee Saunders [facility] [address] [place] [address] 02/03/2024 2:00 PM EDT Imaging Cardiac Studies, [facility] [address] [place] [address] 02/04/2024 11:00 AM EDT Office Visit Cardiology, [facility] [address] [place] [address] Michele Cooper PA-C [address] [place] [address] Pending Results Name Type Priority Associated Diagnoses Date /Time PT INR Lab Routine Atrial fibrillation (HCC) 12/25/2023 1:03 PM EDT Scheduled Procedures Name Priority Associated Diagnoses Date/Ti me COLONOSCOPY FLEXIBLE PROXIMAL DIAGNOSTIC Recall History of colon polyps Health Maintenance Due Date Last Done Comments HIV Screening 1975 Hepatitis C Screening 12/22/1979 HPV/Co-Test 12/22/1991 LUNG CANCER SCREENING - USE SMARTSET 19417 12/22/2011 Depression Screening 02/05/2017 02/06/2016 COVID-19 Vaccine [...] this encounter Medical Devices Implanted Type Area Welding Supervisor Device Identifier Shelf Expiration Date Model / Serial / Lot Sut Steel 6 M654g - [id number] Implanted:Qty : 4 on 10/02/2015 by Kevin Arciniega MD at [place] [facility] N/A: Sternum JNJ : [employer] 08/14/2020 M654G / / [id number] Valve Heart Aortic [facility] Hp21mm - [id number] - [id number] Implanted:Qty : 1 on 10/02/2015 by Kevin Arciniega MD at [place] [facility] N/A: Heart ST CHAPO : CARDIOVASCULAR 03/30/2019 21AFHPJ-50 5 / [id number] / Valve [facility] Chapo Mitral 31mj-501 - [id number] - [id number] Implanted:Qty : 1 on 10/02/2015 by Kevin Arciniega MD at [place] [facility] N/A: Heart ST CHAPO : CARDIOVASCULAR 03/07/2019 31MJ-501 / [id number] / documented as of this encounter Visit Diagnoses Diagnosis Atrial fibrillation (HCC) Atrial fibrillation documented in this encounter Advance Directives Latest Code Status on File Code Status Date Activated Date Inactivated Comments Full Code 10/02/2015 11:47 AM 10/10/2015 5:43 PM This order reflects the patients wishes and were consensually agreed upon. Care Teams Hr Receptionist Relationship Specialty Start Date End Date Bhavna Obando DO [address] [place] [address] PCP - General Family Medicine 01/03/22 documented as of this encounter
--- OUTSIDE RECORDS SUMMARY | 2024-01-04 01:29 | External Medical Summary | Summary of Care ---
Author Name Unknown Organization [facility] Address [address] [facility] [address] Phone [phone] Care Team Providers Care Director Drug Safety Name Role Phone Cecilia Villar DO Primary Care Provider [phone] Reason for Visit * Reason Comments eRx-Medication Refill Encounter Details Date Type Department Care Team (Late st Contact Info) Description 12/14/2023 Refill General Internal Medicine [facility] [address] [place] [address] Cecilia Villar DO [address] [place] [address] Hypothyroidism, postablative; Paroxysmal atrial fibrillation (HCC) Allergies Active Allergy Reactions Criticality Noted Date Comments Benzocaine 09/06/2008 Ear drops Nsaids 01/29/2008 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 documented as of this encounter (statuses as of 12/15/2023) Medications Medication Sig Dispensed Refills Start Date End Date Status valACYclovir (VALTREX) 1000 MG TabletIndication s:Herpes simplex virus infection take 2 tablets by mouth every 12 hours 4 Tab 3 6 Active Additional Information Patient not taking.Reported on 07/24/2022 Multi-Vitamin Daily Oral Tablet Start: 03/20/21 7:25:00 EDT 0 1 Active Turmeric 500 MG Oral Capsule Start: 03/15/21 11:26:00 EDT 0 1 Active Diclofenac Sodium 1 % External Gel (Voltaren)Indica tions:Generalize d OA See Instructions, Disp# 100 g, Refills: 0, apply 4 grams to affected area four times a day NEEDED FOR PAIN MAX 16 GRAMS A DAY TO SINGLE JOINT OF LOWER EXTREMITIES, Pharmacy: [address] 100 g 5 2 Active Oxybutynin Chloride ER 10 MG Oral Tablet Extended Release 24 Hour (Ditropan XL)Indications:O AB (overactive bladder) Take 1 Tablet (10 mg) by mouth in the morning. Do not cut, crush or chew. 30 Tablet 11 2 Active Additional Information Patient not taking.Reported on 11/11/2023 amLODIPine Besylate 2.5 MG Oral Tablet (Norvasc)Indicat ions:Paroxysmal atrial fibrillation (HCC) TAKE ONE TABLET BY MOUTH IN THE MORNING 90 Tablet 4 3 Active ProAir HFA 108 (90 Base) MCG/ACT Inhalation Aerosol SolutionIndicati ons:Bronchitis inhale 2 puffs by mouth four times a day if needed 8.5 g 3 3 Active busPIRone HCl 10 MG Oral Tablet (Buspar)Indicati ons:Anxiety TAKE ONE TABLET BY MOUTH IN THE MORNING AND ONE BEFORE BEDTIME 60 Tablet 5 3 Active Escitalopram Oxalate 20 MG Oral Tablet (Lexapro) TAKE 1 TABLET BY MOUTH EVERY MORNING 90 Tablet 3 3 Active Additional Information Patient not taking.Reported on 11/11/2023 traZODone HCl 50 MG Oral Tablet (Desyrel)Indicat ions:Sleep disorder TAKE ONE TABLET BY MOUTH BEFORE BEDTIME 90 Tablet 2 3 Active Warfarin Sodium 5 MG Oral Tablet (Jantoven)Indica tions:Paroxysmal atrial fibrillation (HCC),Status post aortic valve replacement,Stat us post mitral valve replacement TAKE one to TWO TABLETS BY MOUTH DAILY as directed by anticoagulation clinic 180 Tablet 1 3 Active Omeprazole 20 MG Oral Capsule Delayed Release (PriLOSEC) TAKE ONE CAPSULE BY MOUTH EVERY MORNING 90 Capsule 0 3 Active Amoxicillin 500 MG Oral Capsule (Amoxil)Indicati ons:Rheumatic heart disease Take four tablets one hour prior to dental work 4 Capsule 11 4 Active Levothyroxine Sodium 112 MCG Oral Tablet (Levoxyl)Indicat ions:Hypothyroid ism, postablative TAKE 1 TABLET BY MOUTH EVERY MORNING AT LEAST 30 MINUTES PRIOR TO BREAKFAST OR OTHER MEDICATIONS 90 Tablet 3 4 Active Metoprolol Tartrate 50 MG Oral Tablet (Lopressor)Indic ations:Paroxysma l atrial fibrillation (HCC) TAKE 1 TABLET BY MOUTH TWICE DAILY EVERY MORNING AND BEFORE BEDTIME 180 Tablet 3 4 Active Metoprolol Tartrate 50 MG Oral Tablet (Lopressor)Indic ations:Paroxysma l atrial fibrillation (HCC) TAKE ONE TABLET BY MOUTH IN THE MORNING AND ONE BEFORE BEDTIME 180 Tablet 3 3 024 Discontinued Levothyroxine Sodium 112 MCG Oral Tablet (Levoxyl)Indicat ions:Hypothyroid ism, postablative TAKE 1 TABLET BY MOUTH DAILY FIRST THING IN THE MORNING. 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 0 09/26/2003 MITRAL STENOSIS W INSUFF 01/14/2003 Viral warts 03/04/2001 Overview: ICD-10 update of inactive term Herpes simplex virus infection 09/09/2000 AC PROLIFERAT NEPHRITIS 07/01/2000 RHEUMATIC HEART DIS NOS 05/23/2000 Lipoma 01/09/2000 Overview: ICD-10 update of inactive term MUSCULAR BACK PAIN 12/10/1999 Endometriosis 12/10/1999 documented as of this encounter (statuses as of 12/15/2023) Resolved Problems Problem Noted Date Diagnosed Date Resolved Date Hyperthyroidism 06/15/2014 09/28/2015 Bipolar I disorder, most rec ent episode manic, moderate 07/14/2013 11/11/2023 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 017 Other and unspecified rheuma tic heart diseases(398.99) 05/22/2007 05/27/2008 Anticoagulation management encounter 01/14/2003 05/27/2008 Allergic rhinitis 01/09/2000 05/27/2008 documented as of this encounter (statuses as of 12/15/2023) Immunizations Name Administration Dates Next Due COVID-19 [...] encounter Miscellaneous Notes * Telephone Encounter - Rodri Villa, [facility] - 12/15/2023 11:02 AM EDT Signed Prescriptions: Disp Refills Levothyroxine Sodium 112 MCG Oral Tablet (*90 Tab*3 Sig: TAKE 1 TABLET BY MOUTH EVERY MORNING AT LEAST 30 MINUTES PRIOR TO BREAKFAST OR OTHER MEDICATIONSAuthorizingProvider: CECILIA VILLAR User: RODRI VILLA Metoprolol Tartrate 50 MG Oral Tablet (Lop*180 Ta*3 Sig: TAKE 1 TABLET BY MOUTH TWICE DAILY EVERY MORNING AND BEFORE BEDTIMEAuthorizing Provider: CECILIA VILLAR User: RODRI VILLA documented in this encounter Plan of Treatment Upcoming Encounters Date Type Department Care Team (Late st Contact Info) Description 12/31/2023 2:20 PM EDT [facility] [place] [address] [facility] [phone] [place], Laboratory [address] [facility] [place] [address] 01/01/2024 6:15 AM EDT [facility] Call Center [address] [place] [address] [facility], [facility] [address] [place] [address] 01/20/2024 2:15 PM EDT Office Visit Urogynecology Gerald Saunders [address] [place] [address] Manav Sequeira MD [address] [place] [address] Nurse Lee Saunders [address] [place] [address] 02/03/2024 2:00 PM EDT [facility] [address] [place] [address] 02/04/2024 11:00 AM EDT [facility] [address] [place] [address] Michele Cooper PA-C [address] [place] [address] Scheduled Procedures Name Priority Associated Diagnoses Date/Ti me COLONOSCOPY FLEXIBLE PROXIMAL DIAGNOSTIC Recall History of colon polyps Health Maintenance Due Date Last Done Comments HIV Screening 1975 Hepatitis C Screening 12/22/1979 HPV/Co-Test 12/22/1991 LUNG CANCER SCREENING - USE SMARTSET 72978 12/22/2011 Depression Screening 02/05/2017 02/06/2016 COVID-19 Vaccine (3 - season) 2023 07/05/2021, 06/07/2021 Mammogram 03/17/2024 [...] this encounter Medical Devices Implanted Type Area Specifications Writer Device Identifier Shelf Expiration Date Model / Serial / Lot Sut Steel 6 [id number] - [id number] Implanted:Qty : 4 on 10/02/2015 by Kevin Arciniega MD at OR [facility] [place] N/A: Sternum JNJ : [employer] 08/14/2020 [id number] / / [id number] Valve [facility] Hp[facility] - [id number] - [id number] Implanted:Qty : 1 on 10/02/2015 by Kevin Arciniega MD at OR [facility] [place] N/A: Heart [employer] : CARDIOVASCULAR 03/30/2019 [id number] / [id number] / Valve [facility] Chapo Mitral 31mj-501 - [id number] - [id number] Implanted:Qty : 1 on 10/02/2015 by Kevin Arciniega MD at OR [facility] [place] N/A: Heart [employer]APO : CARDIOVASCULAR 03/07/2019 [id number]-501 / [id number] / documented as of this encounter Visit Diagnoses Diagnosis Hypothyroidism, postablative Other postablative hypothyroidism Paroxysmal atrial fibrillation (HCC) Atrial fibrillation documented in this encounter Advance Directives Latest Code Status on File Code Status Date Activated Date Inactivated Comments Full Code 10/02/2015 11:47 AM 10/10/2015 5:43 PM This order reflects the patients wishes and were consensually agreed upon. Care Teams Director Drug Safety Relationship Specialty Start Date End Date Cecilia Villar DO [address] [place] [address] PCP - General Family Medicine 01/03/22 documented as of this encounter
--- OUTSIDE RECORDS SUMMARY | 2024-01-04 01:29 | External Medical Summary ---
Author Name Unknown Address Unknown Organization K01:LABORATORY [address] [facility] [address] Laboratory Report Ordering Provider Test Date Status MIKE JACKSON 12/25/2023 12:53:08 Final Observation Date Value Abnormality Reference (Units) Status Streptococcus pyogenes DNA [Presence] in Throat by ISAI with probe detection 12/25/2023 12:53:08 Negative. No Group A Streptococcus detected by PCR (amplified probe). Negative Final This test was developed and its performance characteristics determined by [facility]. It has not been cleared or approved by the FDA. The laboratory is regulated under CLIA as qualified to perform high- complexity testing. This test is used for clinical purposes. It should not be regarded as investigational or for research. Performing Location LABORATORY [facility] - [facility] [place] [address]
--- OUTSIDE RECORDS SUMMARY | 2024-01-04 01:30 | External Medical Summary ---
Author Name Unknown Address Unknown Organization K0G[facility] [address] [facility] [address] [place] [address] Laboratory Report Ordering Provider Test Date Status AUREA BROOKS 11/11/2023 11:40:17 Final Observation Date Value Abnormality Reference (Units ) Status SYNC LEUKOCYTES IN BLOOD BY AUTOMATED COUNT 11/11/2023 11:40:17 5.52 4.00-10.80 (K/uL) Final Segs 11/11/2023 11:40:17 69.2 40.0-75.0 (%) Final Lymphs % 11/11/2023 11:40:17 18.7 18.0-42.0 (%) Final Monos 11/11/2023 11:40:17 8.7 1.0-11.0 (%) Final Eosinophils 11/11/2023 11:40:17 2.9 0.0-6.0 (%) Final Basos 11/11/2023 11:40:17 0.5 0.0-2.0 (%) Final Absolute Segs 11/11/2023 11:40:17 3.82 1.80-7.70 (K/uL) Final Lymphs, absolute 11/11/2023 11:40:17 1.03 1.00-4.80 (K/ul) Final Monos, Abs 11/11/2023 11:40:17 0.48 0.00-1.10 (K/uL) Final Eos, Abs 11/11/2023 11:40:17 0.16 0.00-0.70 (K/uL) Final Basos, Abs 11/11/2023 11:40:17 0.03 0.00-0.20 (K/uL) Final Performing Location LABORATORY [facility] [address] [place] [address]
--- OUTSIDE RECORDS SUMMARY | 2024-01-04 01:30 | External Medical Summary | Summary of Care ---
Author Name Unknown Organization [facility] Address [address] [facility] [place] [address] Phone [phone] Care Team Providers Care Magazine Grinder Loader Name Role Phone Bhavna Obando DO Primary Care Provider [phone] Reason for Visit * Reason Comments Dosage Adjustment Via Phone (anticoag Cl inic) Encounter Details Date Type Department Care Team (Latest Contact Info) Description 10/23/2023 6:15 AM EST Anticoagulation Pharmacy Call Center [address] [facility] [place] [address] [facility] [address] [place] [address] Atrial fibrillation, unspecified type (HCC)*; Rheumatic aortic stenosis; Paroxysmal atrial fibrillation (HCC); Mitral valve insufficiency, unspecified etiology Allergies Active Allergy Reactions Criticality Noted Date Comments Benzocaine 09/06/2008 Ear drops Nsaids 01/29/2008 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 documented as of this encounter (statuses as of 10/23/2023) Medications Medication Sig Dispensed Refills Start Date [...] SINGLE JOINT OF LOWER EXTREMITIES, Pharmacy: [address] 100 g 5 01/03/2022 Active Amoxicillin [...] or chew. 30 Tablet 11 08/20/2022 Active amLODIPine Besylate 2.5 MG Oral Tablet [...] if needed 8.5 g 3 03/31/2023 Active Baclofen 20 MG Oral TabletIndications: Cervicalgia Take 1 Tablet by mouth in the morning and 1 Tablet at noon and 1 Tablet before bedtime. 30 Tablet 0 04/15/2023 Active busPIRone HCl 10 MG Oral Tablet (Buspar)Indication s:Anxiety TAKE ONE TABLET BY MOUTH IN THE MORNING AND ONE BEFORE BEDTIME 60 Tablet 5 04/20/2023 Active Escitalopram Oxalate 20 MG Oral Tablet (Lexapro) TAKE 1 TABLET BY MOUTH EVERY MORNING 90 Tablet 3 04/21/2023 Active Levothyroxine Sodium 112 MCG Oral Tablet [...] as of this encounter (statuses as of 10/23/2023) Active Problems Problem Noted Date Diagnosed Date [...] hyperthyroidism 09/28/2015 History of Graves' disease 03/09/2015 Bipolar I disorder, most recent episode manic, m oderate 07/14/2013 Aortic valve stenosis 04/17/2012 Mitral valve regurgitation 04/17/2012 NONALLERGIC RHINITIS 05/27/2008 Postnasal drip 05/27/2008 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/22/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 0 09/26/2003 MITRAL STENOSIS W INSUFF 01/14/2003 Viral warts 03/04/2001 Overview: ICD-10 update of inactive term Herpes simplex virus infection 09/09/2000 AC PROLIFERAT NEPHRITIS 07/01/2000 RHEUMATIC HEART DIS NOS 05/23/2000 Lipoma 01/09/2000 Overview: ICD-10 update of inactive term MUSCULAR BACK PAIN 12/10/1999 Endometriosis 12/10/1999 documented as of this encounter (statuses as of 10/23/2023) Resolved Problems Problem Noted Date Diagnosed Date Resolved Date Hyperthyroidism 06/15/2014 09/28/2015 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 017 Other and unspecified rheuma tic heart diseases(398.99) 05/22/2007 05/27/2008 Anticoagulation management encounter 01/14/2003 05/27/2008 Allergic rhinitis 01/09/2000 05/27/2008 documented as of this encounter (statuses as of 10/23/2023) Immunizations Name Administration Dates Next Due COVID-19 [...] Date Smoking Tobacco: Former Cigarettes 1.5 15 Q uit: 12/23/2021 Smokeless Tobacco: Never Comments:no passive smoke [...] as of this encounter Progress Notes * Linda Cantu CPhT - 10/23/2023 1:55 PM EST Contacts Type Contact Phone/Fax 10/23/2023 01:53 PM EST Phone (Outgoing) Zaynab Key (Self) [phone] (M) Left Message Subjective Advised patient to contact Anticoagulation Clinic if any unusual bruising or bleeding, recent illness, changes in medication, or questions/concerns. PT/INR results, Coumadin dose instructions, and next PT/INR date communicated as noted by Pharmacist: Yes Linda Cantu CPhT 10/23/2023, 1:55 PM * Stacey Buenrostro [facility] - 10/23/2023 10:12 AM EST Images from the original note were not included. Coumadin Clinic (region specific) Objective Current Warfarin Dose As of 10/23/2023 Warfarin maintenance plan: 7.5 mg (5 mg x 1.5) every Fri, Fri, [place]; 10 mg (5 mg x 2) all other days INR Result As of 10/23/2023 INR goal: 2.5-3.5 INR used for dosin.1 (10/22/2023) Assessment & Plan Warfarin Plan As of 10/23/2023 Full warfarin instructions: 10/23: Hold; Otherwise 10 mg every Mon, Wed, Fri; 7.5 mg all other days Next INR check: 11/26/2023 Repeat PT/INR in 5 week(s) Weekly dose: decreased Additional Dosing Information: Description [place] Client Advocate to contact patient with dose instructions as noted. Stacey Buenrostro RPh 10/23/2023, 10:12 AM documented in this encounter Plan of Treatment Upcoming Encounters Date Type Department Care Team (Late st Contact Info) Description 11/11/2023 10:40 AM EST Office Visit Family [facility] [address] [facility] [place] [address] Bhavna Obando DO [address] [place] [address] 11/26/2023 12:00 PM EDT Laboratory Laboratory, [place] [address] [place] [phone] [place], Laboratory [address] [place] [address] 11/27/2023 6:15 AM EDT Anticoagulation Pharmacy Call Center [address] [place] [address] [facility] [address] [facility] [place] [address] Scheduled Procedures Name Priority Associated Diagnoses Date/Ti me COLONOSCOPY FLEXIBLE PROXIMAL DIAGNOSTIC Recall History of colon polyps Health Maintenance Due Date Last Done Comments HIV Screening 1975 Hepatitis C Screening 12/22/1979 HPV/Co-Test 12/22/1991 LUNG CANCER SCREENING - USE SMARTSET [id number] 12/22/2011 Depression Screening 02/05/2017 02/06/2016 COVID-19 Vaccine (3 - 2022- season) 2023 07/05/2021, 06/07/2021 Influenza Vaccine (FLU shot) (#1) 2023 06/15/2022, 05/30/2016, 04/19/2015, Additional history exists TSH 02/12/2024 02/11/2023, 12/15, 10/07/2016, Additional history exists Mammogram 03/17/2024 03/17/2023, 02/15, 04/11/2016, Additional history exists DTaP,Tdap,and Td Vaccines (3 - Td or Tdap) 04/12/2024 04/12/2014, 07/20/2007 Cervical Cancer Screening 03/25/2025 Pap Smear 03/25/2025 03/25/2022, 09/2012, 03/31/2012, Additional history exists Diabetes Screening 02/11/2026 02/11/2023, 0 01/03/2022, 11/30/2015, Additional history exists COLONOSCOPY-EVERY 5 YRS AGES 18-100 06/17/2027 06/17/2022, 06/17/2022, 05/29/2012, Additional history exists Lipid Panel 02/12/2028 02/11/2023, 12/15, 04/01/2016, Additional history exists Pneumococcal Vaccine: Pediatrics (0 [...] this encounter Medical Devices Implanted Type Area Broadband Technician Device Identifier Shelf Expiration Date Model / Serial / Lot Valve [employer] Chapo Mitral 31mj-501 - [id number] - [id number] Implanted:Qty: 1 on 10/02/2015 by Kevin Arciniega MD at [place] [facility] [place] N/A: Heart [employer] : CARDIOVASCULAR 03/07/2019 31MJ-501 / [id number] / documented as of this encounter Visit [...] and were consensually agreed upon. Care Teams Magazine Grinder Loader Relationship Specialty Start Date End Date Bhavna Obando DO [address] [place] [address] PCP - General Family Medicine 01/03/22 documented as of this encounter
--- OUTSIDE RECORDS SUMMARY | 2024-01-04 01:30 | External Medical Summary | Summary of Care ---
Author Name Unknown Organization [facility] Address [address] [place] [address] Phone [phone] Care Team Providers Care Paint Prepper Name Role Phone Bhavna Obando DO Primary Care Provider [phone] Reason for Referral * Evaluate & Treat - Unlimited Visits (Within 10 days (routine)) - Pending Review Specialty Diagnoses / Procedures Referred By Christie adamson Referred To Contact TOWEL HEMMER - Urogynecology / Gynecology Urology Diagnoses OAB (overactive bladder) Bhavna Obando DO [address] [place] [address] Referral ID Status Reason Start Date Expiration Date Visits Requested Visits Authorized [id number] Pending Review Specialty Services Required 11/11/[phone] Question Answer Referral Priority Within 10 days (routine) Where should this appointment be scheduled? Matt What condition is the patient being referred for? Urinary Incontinence/Overactive Bladder * Precert (Within 10 days (routine)) - Pending Review Specialty Diagnoses / Procedures Referred By Christie adamson Referred To Contact Cardiac Studies Diagnoses Chest pain, unspecified type Procedures ECHO, STRESS (EXERCISE) W/ PHYSICIAN Bhavna Obando DO [address] [place] [address] Referral ID Status Reason Start Date Expiration Date Visits Requested Visits Authorized [id number] Pending Review Precert 11/11/[phone] * Evaluate & Treat - Unlimited Visits (Within 10 days (routine)) - Pending Review Specialty Diagnoses / Procedures Referred By Christie adamson Referred To Contact Sleep Medicine / Sleep Disorders Diagnoses Insomnia, unspecified type Bhavna Obando DO [address] [place] [address] Referral ID Status Reason Start Date Expiration Date Visits Requested Visits Authorized [id number] Pending Review Specialty Services Required 11/11/2023 2 2 Question Answer [facility] SLEEP MED ADULT REFERRAL Insomnia/Parasomnia Referral Priority Within 10 days (routine) Where should this appointment be scheduled? [facility] * Evaluate & Treat - Unlimited Visits (Within 10 days (routine)) - Pending Review Specialty Diagnoses / Procedures Referred By Christie adamson Referred To Contact Cardiovascular Medicine / Cardiology Diagnoses Paroxysmal atrial fibrillation (HCC) Bhavna Obando DO [address] [place] [address] Referral ID Status Reason Start Date Expiration Date Visits Requested Visits Authorized [id number] Pending Review Specialty Services Required 11/11/[phone] Question Answer Referral Priority Within 10 days (routine) Where should this appointment be scheduled? Matt To which of the following clinics are you referring your patient? General Cardiology Clinic Reason for Visit * Reason Comments Follow Up Pt being seen for F/ U apt for med refills today, has issues with sleeping nightly and not sure what to do. Encounter Details Date Type Department Care Team (Late st Contact Info) Description 11/11/2023 10:40 AM EST Office Visit Family [facility] [address] [place] [address] Bhavna Obando DO [address] [place] [address] Chest pain, unspecified type*; Well adult exam; Paroxysmal atrial fibrillation (HCC); Hypothyroidism, postablative; OAB (overactive bladder); Insomnia, unspecified type; HTN, goal below 140/90; Gastroesophageal reflux disease, unspecified whether esophagitis present Allergies Active Allergy Reactions Criticality Noted Date Comments Benzocaine 09/06/2008 Ear drops Nsaids 01/29/2008 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 documented as of this encounter (statuses as of 11/11/2023) Medications Medication Sig Dispensed Refills Start Date [...] TO SINGLE JOINT OF LOWER EXTREMITIES, Pharmacy: [address] 100 g 5 2 Active Amoxicillin 500 MG Oral Capsule (Amoxil)Indicatio ns:Rheumatic heart disease Take four tablets one hour prior to dental work 4 Capsule 11 2 Active Oxybutynin Chloride ER 10 MG [...] EVERY MORNING 90 Capsule 0 3 Active Baclofen 20 MG Oral TabletIndications :Cervicalgia Take 1 Tablet by mouth in the morning and 1 Tablet at noon and 1 Tablet before bedtime. 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 017 Other and unspecified rheuma tic heart diseases(398.99) 05/22/2007 05/27/2008 Anticoagulation management encounter 01/14/2003 05/27/2008 Allergic rhinitis 01/09/2000 05/27/2008 documented as of this encounter (statuses as of 11/11/2023) Immunizations Name Administration Dates Next Due COVID-19 [...] 0 12/23/2006 - 12/23/2021 Smokeless Tobacco: Never Tobacco Cessation:Counseling Given: Not Answered Comments:no passive smoke Alcohol Use Standard Drinks/Week [...] Sign Reading Time Taken Comments Blood Pressure 106/72 11/11/2023 10:35 AM EST Pulse 55 11/11/2023 10:35 AM EST Temperature 35.8 C (96.4 F) 11/11/2023 10:[address] Respiratory Rate 16 11/11/2023 10:35 AM EST Oxygen Saturation - - Inhaled Oxygen Concentration - - Weight 75.3 kg (166 lb) 11/11/2023 10:35 AM EST Height 160 cm (5' 3") 11/11/2023 10:35 AM EST Body Mass Index 29.41 11/11/2023 10:35 AM EST documented in this encounter Functional Status Functional [...] as of this encounter Progress Notes * Bhavna Obando, - 11/11/2023 10:55 AM EST Subjective: Yahaira Worthy is a 62 year old female. Chief Complaint Patient presents with Follow Up Pt being seen for F/U apt for med refills today, has issues with sleeping nightly and not sure whatto do. HPI: This is a 62 year old female with PMHx as below presents for annual well check. anxiety/depression - lexapro, buspar refusing to see psych Flexeril taking prn Trazodone - insomnia/anxiety/depression Saw cardio in the past - overdue to see - htn, a fib, s/p avr - metoprolol, coumadin, norvasc Endo (saw in past) - hx of graves, hypothyroidism - levoxyl Ppi - gerd Oxybutynin (not currently taking)- incontinence/OAB - will refer to urogyn Pos chest pain - stress testing ordered Hx of tobacco abuse declines LDCT Does not have much energy Not sleeping well Patient Active Problem List Diagnosis Code MUSCULAR BACK PAIN M54.9 Endometriosis N80.9 Lipoma D17.9 RHEUMATIC HEART DIS NOS I09.9 AC PROLIFERAT NEPHRITIS N00.8 Herpes simplex virus infection B00.9 Viral warts B07.9 MITRAL STENOSIS W INSUFF I05.2 intermediate current use of anticoagulant therapy Z79.01 Atrial fibrillation (HCC) I48.91 NONALLERGIC RHINITIS J31.0 Postnasal drip R09.82 Aortic valve stenosis I35.0 Mitral valve regurgitation I34.0 Bipolar I disorder, most recent episode manic, moderate (HCC) F31.12 History of Graves' disease Z86.39 History of hyperthyroidism Z86.39 S/P AVR (aortic valve replacement) Z95.2 S/P MVR (mitral valve replacement) Z95.2 Hypothyroidism, 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 Paroxysmal atrial fibrillation (HCC) I48.0 Mitral valve insufficiency, unspecified etiology I34.0 Status post mitral valve replacement Z95.2 Status post aortic valve replacement Z95.2 Rheumatic valvular disease I09.1 OAB (overactive bladder) N32.81 Current Outpatient Medications Medication Sig Dispense Refill Multi-Vitamin Daily Oral Tablet Start: 03/20/21 7:25:00 EDT Turmeric 500 MG Oral Capsule Start: 03/15/21 11:26:00 EDT Diclofenac Sodium 1 % External Gel (Voltaren) See Instructions, Disp# 100 g, Refills: 0, apply 4 grams to affected area four times a day NEEDED FOR PAIN MAX 16 GRAMS A DAY TO SINGLE JOINT OF LOWEREXTREMITIES, Pharmacy: [facility] [address] 100 g 5 amLODIPine Besylate 2.5 MG Oral Tablet (Norvasc) TAKE ONE TABLET BY MOUTH IN THE MORNING 90 Tablet 4 Metoprolol Tartrate 50 MG Oral Tablet (Lopressor) TAKE ONE TABLET BY MOUTH IN THE MORNING AND ONE BEFORE BEDTIME 180 Tablet 3 busPIRone HCl 10 MG Oral Tablet (Buspar) TAKE ONE TABLET BY MOUTH IN THE MORNING AND ONE BEFORE BEDTIME 60 Tablet 5 Levothyroxine Sodium 112 MCG Oral Tablet (Levoxyl) TAKE 1 TABLET BY MOUTH DAILY FIRST THING IN THE MORNING. AT LEAST 30 MINTUES PRIOR TO BREAKFAST OR OTHER MEDS 90 Tablet 1 traZODone HCl 50 MG Oral Tablet (Desyrel) TAKE ONE TABLET BY MOUTH BEFORE BEDTIME 90 Tablet 2 Warfarin Sodium 5 MG Oral Tablet (Jantoven) TAKE one to TWO TABLETS BY MOUTH DAILY as directed by anticoagulation clinic 180 Tablet 1 Omeprazole 20 MG Oral Capsule Delayed Release (PriLOSEC) TAKE ONE CAPSULE BY MOUTH EVERY MORNING 90Capsule 0 valACYclovir (VALTREX) 1000 MG Tablet take 2 tablets by mouth every 12 hours (Patient not taking: No sig reported) 4 Tab 3 Amoxicillin 500 MG Oral Capsule (Amoxil) Take four tablets one hour prior to dental work 4 Capsule 11 Oxybutynin Chloride ER 10 MG Oral Tablet Extended Release 24 Hour (Ditropan XL) Take 1 Tablet (10 mg) by mouth in the morning. Do not cut, crush or chew. (Patient not taking: Reported on 11/11/2023) 30 Tablet 11 ProAir HFA 108 (90 Base) MCG/ACT Inhalation Aerosol Solution inhale 2 puffs by mouth four times a day if needed 8.5 g 3 Escitalopram Oxalate 20 MG Oral Tablet (Lexapro) TAKE 1 TABLET BY MOUTH EVERY MORNING (Patient not taking: Reported on 11/11/2023) 90 Tablet 3 No current facility-administered medications for this visit. 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) use of anticoagulants for heart - [...] performed by Giovanny Morton MD at ENDOSCOPY [facility] CORONARY ANGIOGRAPHY W/RIGHT+LEFT CATH Right 08/04/2015 CORONARY ANGIOGRAPHY W/RIGHT+LEFT CATH performed by Jerardo Schwartz MD at CARDIAC LABS [facility] INFORMATION Laparoscopy, Dx with Endometriosis LIGATE/CUT OVIDUCT(S) Tubal Ligation NM RADIOPHARNACEUTICAL THYROID CANCER ABLATION 01/2015 16 mCi GLOVER-131 [Mt Marcelline] REPLACE MITRAL VALVE W/BYPASS 10/02/2015 REPLACEMENT MITRAL VALVE performed by Kevin Arciniega MD at OR [facility] REPLACEMENT AORTIC VALVE, BYPASS WITH PROSTHETIC VALVE N/A 10/02/2015 REPLACEMENT AORTIC VALVE performed by Kevin Arciniega MD at OR [facility] Review of patient's allergies indicates: Allergen Reactions Benzocaine Ear drops Nsaids 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 Family History Problem Relation Age of Onset Heart Disorder Father No Past Hx Mother No Past Hx None no breast/ovarian/colon cancer Family Status Relation Status Fa (Not Specified) Mo (Not Specified) NONE (Not Specified) Social History Socioeconomic History Marital status: Spouse name: velia Number of children: 2 Years of education: Not on file Highest education level: Not on file Occupational History Occupation: [employer] Comment: [employer] Employer: [employer] Tobacco Use Smoking status: Former Current packs/day: 0.00 Average packs/day: 1.5 packs/day for 15.0 years (22.5 ttl pk-yrs) Types: Cigarettes Start date: 12/23/2006 Quit date: 12/23/2021 Years since quittin.8 Smokeless tobacco: Never Tobacco comments: no passive [...] Minimal itemsPets: 3 dog(s)Lives on a farm: 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 Good Not Applicable Hospital ER within 30 days: No Patient is able to obtain all of his medications? Yes Patient takes medications as prescribed? Yes Tobacco screening completed today: Yes Non-smoker Quit > 1 year ago Alcohol screening completed today: Yes Occasionally (Socially) Spirometry: declines Dental Exam: No Eye Screening: No Exercise Screening: only the exercise associated with activities at work Nutrition Assessment: Eats a balanced diet Pain Screening: Yes Are you having any pain? No Review of Systems: As per HPI all other ROS negative. Results for orders placed or performed in visit on 10/22/23 PT INR Result Value Ref Range Prothrombin Time 40.7 (H) 11.6 - 15.2 seconds INR 4.1 (H) 0.8 - 1.2 *Note: Due to a large number of results and/or encounters for the requested time period, some results have not been displayed. A complete set of results can be found in Results Review. Wt Readings from Last 3 Encounters: 11/11/23 75.3 kg (166 lb) 02/05/23 79.1 kg (174 lb 6.4 oz) 08/20/22 81.6 kg (180 lb) Health Maintenance Due Topic Date Due HIV Screening Never done Hepatitis C Screening Never done LUNG CANCER SCREENING - USE SMARTSET 43329 Never done Depression Screening 02/05/2017 Influenza Vaccine (FLU shot) (1) 05/16/2023 COVID-19 Vaccine ( season) 2023 OBJECTIVE: Physical Exam: BP 106/72 | Pulse 55 | Temp 35.8 C (96.4 F) (Tympanic) | Resp 16 | Ht 1.6 m (5' 3") | Wt 75.3 kg (166 lb) | LMP 01/30/2012 | BMI 29.41 kg/m | BSA 1.83 m General: alert, healthy, and no distress Head: Normocephalic, No masses, lesions, tenderness or abnormalities Eye Exam: PERRLA, extraocular movements intact, conjunctiva are pink and non- injected, sclera clear Oropharynx: no exudate, no erythema, lips, buccal mucosa, and tongue normal, and mucous membranes are moist Neck: supple, no adenopathy, no bruits Heart: regular rate & rhythm, no murmur, and no gallops Lungs: lungs clear to auscultation Abdomen: abdomen soft, non-tender, normal bowel sounds, and no masses or organomegaly Extremities: no joint deformities, effusion, or inflammation, no edema Chest pain, unspecified type (Primary) - ECHO, STRESS (EXERCISE) W/ PHYSICIAN; Future; Expected date: 11/11/2023 Well adult exam Paroxysmal atrial fibrillation (HCC) - CARDIOLOGY REFERRAL OP - VITAMIN B12; Future; Expected date: 11/11/2023 - MAGNESIUM; Future; Expected date: 11/11/2023 - CBC WITH WBC DIFFERENTIAL; Future; Expected date: 11/11/2023 - COMPREHENSIVE METABOLIC PANEL; Future; Expected date: 11/11/2023 - TSH WITH FREE T4 IF INDICATED; Future; Expected date: 11/11/2023 - LIPID PANEL WITH DIRECT LDL IF TG IS HIGH; Future; Expected date: 11/11/2023 - ALBUMIN / CREATININE RATIO, URINE; Future; Expected date: 11/11/2023 Hypothyroidism, postablative - VITAMIN B12; Future; Expected date: 11/11/2023 - MAGNESIUM; Future; Expected date: 11/11/2023 - CBC WITH WBC DIFFERENTIAL; Future; Expected date: 11/11/2023 - COMPREHENSIVE METABOLIC PANEL; Future; Expected date: 11/11/2023 - TSH WITH FREE T4 IF INDICATED; Future; Expected date: 11/11/2023 - LIPID PANEL WITH DIRECT LDL IF TG IS HIGH; Future; Expected date: 11/11/2023 - ALBUMIN / CREATININE RATIO, URINE; Future; Expected date: 11/11/2023 OAB (overactive bladder) - VITAMIN B12; Future; Expected date: 11/11/2023 - MAGNESIUM; Future; Expected date: 11/11/2023 - CBC WITH WBC DIFFERENTIAL; Future; Expected date: 11/11/2023 - COMPREHENSIVE METABOLIC PANEL; Future; Expected date: 11/11/2023 - TSH WITH FREE T4 IF INDICATED; Future; Expected date: 11/11/2023 - LIPID PANEL WITH DIRECT LDL IF TG IS HIGH; Future; Expected date: 11/11/2023 - ALBUMIN / CREATININE RATIO, URINE; Future; Expected date: 11/11/2023 - UROGYNECOLOGY CLINIC REFERRAL OP (FEMALE ONLY) Insomnia, unspecified type - SLEEP MEDICINE REFERRAL OP HTN, goal below 140/90 - VITAMIN B12; Future; Expected date: 11/11/2023 - MAGNESIUM; Future; Expected date: 11/11/2023 - CBC WITH WBC DIFFERENTIAL; Future; Expected date: 11/11/2023 - COMPREHENSIVE METABOLIC PANEL; Future; Expected date: 11/11/2023 - TSH WITH FREE T4 IF INDICATED; Future; Expected date: 11/11/2023 - LIPID PANEL WITH DIRECT LDL IF TG IS HIGH; Future; Expected date: 11/11/2023 - ALBUMIN / CREATININE RATIO, URINE; Future; Expected date: 11/11/2023 Gastroesophageal reflux disease, unspecified whether esophagitis present - VITAMIN B12; Future; Expected date: 11/11/2023 - MAGNESIUM; Future; Expected date: 11/11/2023 - CBC WITH WBC DIFFERENTIAL; Future; Expected date: 11/11/2023 - COMPREHENSIVE METABOLIC PANEL; Future; Expected date: 11/11/2023 - TSH WITH FREE T4 IF INDICATED; Future; Expected date: 11/11/2023 - LIPID PANEL WITH DIRECT LDL IF TG IS HIGH; Future; Expected date: 11/11/2023 - ALBUMIN / CREATININE RATIO, URINE; Future; Expected date: 11/11/2023 Discussed with patient: -HEALTH PROMOTION: Adequate sleep (8-10 hours/night), regular exercise, balanced diet, dental care,limiting sedentary activities (TV, computer, Internet) -MENTAL HEALTH: Discuss feelings with an someone that they can trust -INJURY PREVENTION: Driving Safety, Seat Belts, Sun Safety, No Weapons, Conflict Resolution, Personal Safety -SUBSTANCE ABUSE: Tobacco, Drugs, Alcohol Bhavna Obando DO documented in this encounter Plan of Treatment Upcoming Encounters Date Type Department Care Team (Late st Contact Info) Description 11/18/2023 8:40 AM EST Office Visit [facility] [address] [place] [phone] Kavita Barahona DO [address] [place] [address] 11/26/2023 12:00 PM EDT Laboratory Laboratory, [place] [address] [address] [facility] [phone] [place], [facility] [address] [facility] [address] 11/27/2023 6:15 AM EDT [facility] Call Center [phone] [facility] [address] [place] [address] [facility], [facility] [address] [facility] [place] [address] 01/20/2024 2:15 PM EDT Office Visit Urogynecology [facility] [address] [place] [address] Manav Sequeira MD [address] [place] [address] Nurse Lee Saunders [address] [place] [address] 02/03/2024 2:00 PM EDT [facility] [place] [address] 02/04/2024 11:00 AM EDT Office Visit Cardiology, [facility] [address] [place] [address] Michele Cooper PA-C [address] [place] [address] Scheduled Orders Name Type Priority Associated Diagnoses Orde r Schedule VITAMIN B12 Lab Routine Paroxysmal atrial fibrillation (HCC) Hypothyroidism, postablative OAB (overactive bladder) HTN, goal below 140/90 Gastroesophageal reflux disease, unspecified whether esophagitis present Expected: 11/11/2023 (Approximate), Expires: 11/11/2024 MAGNESIUM Lab Routine Paroxysmal atrial fibrillation (HCC) Hypothyroidism, postablative OAB (overactive bladder) HTN, goal below 140/90 Gastroesophageal reflux disease, unspecified whether esophagitis present Expected: 11/11/2023 (Approximate), Expires: 11/11/2024 CBC WITH WBC DIFFERENTIAL Lab Routine Paroxysmal atrial fibrillation (HCC) Hypothyroidism, postablative OAB (overactive bladder) HTN, goal below 140/90 Gastroesophageal reflux disease, unspecified whether esophagitis present Expected: 11/11/2023 (Approximate), Expires: 11/11/2024 COMPREHENSIVE METABOLIC PANEL Lab Routine Paroxysmal atrial fibrillation (HCC) Hypothyroidism, postablative OAB (overactive bladder) HTN, goal below 140/90 Gastroesophageal reflux disease, unspecified whether esophagitis present Expected: 11/11/2023 (Approximate), Expires: 11/11/2024 TSH WITH FREE T4 IF INDICATED Lab Routine Paroxysmal atrial fibrillation (HCC) Hypothyroidism, postablative OAB (overactive bladder) HTN, goal below 140/90 Gastroesophageal reflux disease, unspecified whether esophagitis present Expected: 11/11/2023 (Approximate), Expires: 11/11/2024 LIPID PANEL WITH DIRECT LDL IF TG IS HIGH Lab Routine Paroxysmal atrial fibrillation (HCC) Hypothyroidism, postablative OAB (overactive bladder) HTN, goal below 140/90 Gastroesophageal reflux disease, unspecified whether esophagitis present Expected: 11/11/2023 (Approximate), Expires: 11/11/2024 ALBUMIN / CREATININE RATIO, URINE Lab Routine Paroxysmal atrial fibrillation (HCC) Hypothyroidism, postablative OAB (overactive bladder) HTN, goal below 140/90 Gastroesophageal reflux disease, unspecified whether esophagitis present Expected: 11/11/2023 (Approximate), Expires: 11/10/2024 ECHO, STRESS (EXERCISE) W/ PHYSICIAN Echocardiology Routine Chest pain, unspecified type Expected: 11/11/2023, Expires: 12/09/2024 Scheduled Procedures Name Priority Associated Diagnoses Date/Ti me COLONOSCOPY FLEXIBLE PROXIMAL DIAGNOSTIC Recall History of colon polyps Scheduled Referrals Name Type Priority Associated Diagnoses Orde r Schedule CARDIOLOGY REFERRAL OP Referral Within 10 days (routine) Paroxysmal atrial fibrillation (HCC) Ordered: 11/11/2023 SLEEP MEDICINE REFERRAL OP Referral Within 10 days (routine) Insomnia, unspecified type Ordered: 11/11/2023 UROGYNECOLOGY CLINIC REFERRAL OP (FEMALE ONLY) Referral Within 10 days (routine) OAB (overactive bladder) Ordered: 11/11/2023 Health Maintenance Due Date Last Done Comments HIV Screening 1975 Hepatitis C Screening 12/22/1979 HPV/Co-Test 12/22/1991 LUNG CANCER SCREENING - USE SMARTSET 76607 12/22/2011 Depression Screening 02/05/2017 02/06/2016 COVID-19 Vaccine [...] this encounter Medical Devices Implanted Type 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 Soil Surveyor Device Identifier Shelf Expiration Date Model / Serial / Lot Sut Steel 6 [id number] - [id number] Implanted:Qty : 4 on 10/02/2015 by Kevin Arciniega MD at OR [facility] N/A: Sternum JNJ : [employer] 08/14/2020 [id number] / / [id number] Valve Heart Aortic [facility] [id number] - [id number] - [id number] Implanted:Qty : 1 on 10/02/2015 by Kevin Arciniega MD at OR [facility] N/A: Heart [facility] [employer] : CARDIOVASCULAR 03/30/2019 [id number] / [id number] / Valve [facility] [place] Mitral [id number] - [id number] - [id number] Implanted:Qty : 1 on 10/02/2015 by Kevin Arciniega MD at OR [facility] N/A: Heart [employer] : CARDIOVASCULAR 03/07/2019 [id number] / [id number] / documented as of this encounter Visit Diagnoses Diagnosis Chest pain, unspecified type- Primary Well adult exam Routine general medical examination at a health care facility Paroxysmal atrial fibrillation (HCC) Atrial fibrillation Hypothyroidism, postablative Other postablative hypothyroidism OAB (overactive bladder) Hypertonicity of bladder Insomnia, unspecified type HTN, goal below 140/90 Unspecified essential hypertension Gastroesophageal reflux disease, unspecified whether esophagitis present documented in this encounter Advance Directives Latest Code Status on File Code Status Date Activated Date Inactivated Comments Full Code 10/02/2015 11:47 AM 10/10/2015 5:43 PM This order reflects the patients wishes and were consensually agreed upon. Care Teams Paint Prepper Relationship Specialty Start Date End Date Bhavna Obando DO [address] [place] [id number] PCP - General Family Medicine 01/03/22 documented as of this encounter
--- OUTSIDE RECORDS SUMMARY | 2024-01-04 01:30 | External Medical Summary | Summary of Care ---
Author Name Unknown Organization [facility] Address [address] [facility] [place] [address] Phone [phone] Care Team Providers Care Graphic Design Professor Name Role Phone Bhavna Obando DO Primary Care Provider Reason for Visit * Reason Onset Date Comments Appointment 11/11/2023 cardio Encounter Details Date Type Department Care Team (Late st Contact Info) Description 11/11/2023 Telephone Family Practice [facility] [address] [place] [address] Bhavna Obando DO [address] [place] [address] Appointment (cardio) Allergies Active Allergy Reactions Criticality Noted Date [...] TO SINGLE JOINT OF LOWER EXTREMITIES, Pharmacy: [address] 100 g 5 01/03/2022 Active Amoxicillin [...] 05/27/2008 Postnasal drip 05/27/2008 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/22/2007 emt intermediate current use of anticoagulant therapy 0 [...] encounter Miscellaneous Notes * Telephone Encounter - Opal Barahona OSA - 11/11/2023 11:15 AM EST Return pt of Michele Cooper, please call to schedule as there is nothing open documented in this encounter Plan of Treatment Upcoming Encounters Date Type Department Care Team (Late st Contact Info) Description 11/18/2023 8:40 AM EST Office Visit Sleep Disorders Ctr [facility] [address] [facility] [facility] [place] [phone] Kavita Barahona, DO [address] [place] [address] 11/26/2023 12:00 PM EDT Laboratory Laboratory, [facility] [address] [facility] [place] [phone] Arjun Hook [address] [facility] [address] 11/27/2023 6:15 AM EDT [facility] Call Center [address] [place] [address] [facility] 58 [address] [facility] [place] [address] 01/20/2024 2:15 PM EDT Office Visit Urogynecology [facility] [address] [facility] [place] [address] Manav Sequeira MD [address] [facility] [place] [address] SaundersNurse Lee godinez [facility] [address] [facility] [place] [address] 02/03/2024 2:00 PM EDT Imaging Cardiac Studies, [facility] [address] [facility] [place] [address] 02/04/2024 11:00 AM EDT Office Visit Cardiology, [facility] [address] [facility] [place] [address] Michele Cooper, PARastaC [facility] [place] [address] Scheduled Procedures Name Priority Associated Diagnoses Date/Ti me COLONOSCOPY FLEXIBLE PROXIMAL DIAGNOSTIC Recall History of colon polyps Health Maintenance Due Date Last Done Comments HIV Screening 1975 Hepatitis C Screening 12/22/1979 HPV/Co-Test 12/22/1991 LUNG CANCER SCREENING - USE SMARTSET 64922 12/22/2011 Depression Screening 02/05/2017 02/06/2016 COVID-19 Vaccine [...] 10/09/2012, 03/31/2012, Additional history exists Diabetes Screening 02/11/2026 [...] encounter Medical Devices Implanted Type Area Assistant Operations Manager Device Identifier Shelf Expiration Date Model / Serial / Lot Sut Steel 6 M654g - [id number] Implanted:Qty : 4 on 10/02/2015 by Kevin Arciniega MD at OR [facility] N/A: Sternum JNJ : [employer] 08/14/2020 [id number] / / [id number] Valve Heart Aortic [facility] Hp21mm - [id number] - [id number] Implanted:Qty : 1 on 10/02/2015 by Kevin Arciniega MD at OR [facility] N/A: Heart [facility] : CARDIOVASCULAR 03/30/2019 21AFHPJ-50 5 / [id number] / Valve St Chapo Mitral 31mj-501 - [id number] - [id number] Implanted:Qty : 1 on 10/02/2015 by Kevin Arciniega MD at OR [facility] N/A: Heart [facility] : CARDIOVASCULAR 03/07/2019 31MJ-501 / [id number] / documented as of this encounter Advance Directives Latest Code Status on File Code Status Date Activated Date Inactivated Comments Full Code 10/02/2015 11:47 AM 10/10/2015 5:43 PM This order reflects the patients wishes and were consensually agreed upon. Care Teams Graphic Design Professor Relationship Specialty Start Date End Date Bhavna Obando DO [address] [place] [address] PCP - General Family Medicine 01/03/22 documented as of this encounter
--- OUTSIDE RECORDS SUMMARY | 2024-01-04 01:30 | External Medical Summary ---
Author Name Unknown Address Unknown Organization [id number]:[facility] - [address] [place] [address] Laboratory Report Ordering Provider Test Date Status AUREA BROOKS 11/11/2023 11:40:17 Final Observation Date Value Abnormality Reference (Units ) Status Magnesium 11/11/2023 11:40:17 2.2 1.5-2.6 (m g/dL) Final Performing Location [facility] - [address] [place] [address]
--- OUTSIDE RECORDS SUMMARY | 2024-01-04 01:30 | External Medical Summary ---
Author Name Unknown Address Unknown Organization [id number]:LABORATORY [facility] [place] - [address] [place] [address] Laboratory Report Ordering Provider Test Date Status ORTIZ BROOKSTA 11/11/2023 11:40:17 Final Observation Date Value Abnormality Reference (Units ) Status TSH 11/11/2023 11:40:17 1.73 0.27-4.20 (uIU/mL) Final Performing Location LAB[facility]ATORY C - [address] [facility] [address]
--- OUTSIDE RECORDS SUMMARY | 2024-01-04 01:30 | External Medical Summary ---
Author Name Unknown Address Unknown Organization [id number]:[facility] [place] [address] - [address] [place] [address] Laboratory Report Ordering Provider Test Date Status ARISTEOSIDNEY 11/11/2023 11:40:17 Final Please draw PT/INR every 1-4 weeks or as requested by the [facility]

Warfarin Therapy
INR: 2.0-3.0 conventional anticoagulation
INR: 2.5-3.5 high intensity anticoagulation Observation Date Value Abnormality Reference (Units ) Status PT 11/11/2023 11:40:17 22.7 Above high normal 11 .6-15.2 (seconds) Final INR 11/11/2023 11:40:17 2.0 Above high normal 0. 8-1.2 Final Performing Location LABORATORY [place] [place] 57-1 0 - [address] [place] [address]
--- OUTSIDE RECORDS SUMMARY | 2024-01-04 01:30 | External Medical Summary ---
Author Name Unknown Address Unknown Organization [id number]:LABORATORY [facility] 57-10 - [address] [place] [address] Laboratory Report Ordering Provider Test Date Status AUREA BROOKS 11/11/2023 11:40:17 Final Observation Date Value Abnormality Reference (Units ) Status WBC, Total 11/11/2023 11:40:17 5.52 4.00-10.8 0 (K/uL) Final RBC 11/11/2023 11:40:17 4.43 3.85-5.15 (M/uL) Final Hemoglobin 11/11/2023 11:40:17 13.2 12.0-15.3 (g/dL) Final HCT 11/11/2023 11:40:17 40.3 36.0-45.2 (%) Final MCV 11/11/2023 11:40:17 91.0 81.5-97.5 (fL) Final MCH 11/11/2023 11:40:17 29.8 27.0-34.0 (pg) Final MCHC 11/11/2023 11:40:17 32.8 32.0-36.0 (g/dL) Final RDW 11/11/2023 11:40:17 12.4 11.5-15.5 (%) Final Platelets 11/11/2023 11:40:17 180 140-400 (K /uL) Final MPV 11/11/2023 11:40:17 11.8 6.6-11.1 ( fL) Final Performing Location LABORATORY [facility] 57-1 0 - [address] [place] [address]
--- OUTSIDE RECORDS SUMMARY | 2024-01-04 01:30 | External Medical Summary | Summary of Care ---
Author Name Unknown Organization [facility] Address [address] [place] [place] [address] Phone [phone] Care Team Providers Care Party Director Name Role Phone Bhavna Obando DO Primary Care Provider [phone] Reason for Visit * Reason Comments Outpatient Testing Encounter Details Date Type Department Care Team (Late st Contact Info) Description 11/11/2023 11:50 AM EST Laboratory Laboratory, [facility] [phone] [facility] [address] [facility] [address] Atrial fibrillation (HCC); Paroxysmal atrial fibrillation (HCC); Hypothyroidism, postablative; OAB (overactive bladder); HTN, goal below 140/90; Gastroesophageal reflux disease, [...] TO SINGLE JOINT OF LOWER EXTREMITIES, [facility] [address] g 5 01/03/2022 Active Amoxicillin [...] 05/27/2008 Postnasal drip 05/27/2008 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/22/2007 intermission coordinator current use of anticoagulant therapy 0 09/26/2003 [...] AM EST Office Visit Sleep Disorders Ctr [facility] [address] [place] [phone] Kavita Barahona, [address] [place] [address] 11/26/2023 12:00 PM EDT Laboratory [facility], [facility] [phone] [facility] [address] [place] [address] 11/27/2023 6:15 AM EDT [facility] Pharm[facility] Call Center [address] [facility] [place] [address] [facility] 58 60 [facility] [place] [address] 01/20/2024 2:15 PM EDT Office Visit Urogynecology [facility] [address] [place] [address] Manav Sequeira MD [address] [place] [address] Nurse Lee Saunders Lin [address] [place] [address] 02/03/2024 2:00 PM EDT Imaging Cardiac Studies, [facility] [address] [place] [address] 02/04/2024 11:00 AM EDT Office Visit Cardiology, [facility] [address] [place] [address] Michele Cooper PA-C [address] [place] [address] Pending Results Name Type Priority Associated Diagnoses Date /Time PT INR Lab Routine Atrial fibrillation (HCC) 11/11/2023 11:40 AM EST VITAMIN B12 Lab Routine Paroxysmal atrial fibrillation ([facility]) Hypothyroidism, postablative OAB (overactive bladder) HTN, goal below 140/90 Gastroesophageal reflux disease, unspecified whether esophagitis present 11/11/2023 11:40 AM EST MAGNESIUM Lab Routine Paroxysmal atrial fibrillation ([facility]) Hypothyroidism, postablative OAB (overactive bladder) HTN, goal below 140/90 Gastroesophageal reflux disease, unspecified whether esophagitis present 11/11/2023 11:40 AM EST COMPREHENSIVE METABOLIC PANEL Lab Routine Paroxysmal atrial fibrillation ([facility]) Hypothyroidism, postablative OAB (overactive bladder) HTN, goal below 140/90 Gastroesophageal reflux disease, unspecified whether esophagitis present 11/11/2023 11:40 AM EST TSH WITH FREE T4 IF INDICATED Lab Routine Paroxysmal atrial fibrillation ([facility]) Hypothyroidism, postablative OAB (overactive bladder) HTN, goal below 140/90 Gastroesophageal reflux disease, unspecified whether esophagitis present 11/11/2023 11:40 AM EST LIPID PANEL WITH DIRECT LDL IF TG IS HIGH Lab Routine Paroxysmal atrial fibrillation (HCC) Hypothyroidism, postablative OAB (overactive bladder) HTN, goal below 140/90 Gastroesophageal reflux disease, unspecified whether esophagitis present 11/11/2023 11:40 AM EST ALBUMIN / CREATININE RATIO, URINE Lab Routine Paroxysmal atrial fibrillation (HCC) Hypothyroidism, postablative OAB (overactive bladder) HTN, goal below 140/90 Gastroesophageal reflux disease, unspecified whether esophagitis present 11/11/2023 11:43 AM EST Scheduled Procedures Name Priority Associated Diagnoses Date/Ti me COLONOSCOPY FLEXIBLE PROXIMAL DIAGNOSTIC Recall History of colon polyps Health Maintenance Due Date Last Done Comments HIV Screening 1975 Hepatitis C Screening 12/22/1979 HPV/Co-Test 12/22/1991 LUNG CANCER SCREENING - USE SMARTSET 32398 12/22/2011 Depression Screening 02/05/2017 02/06/2016 COVID-19 Vaccine [...] this encounter Medical Devices Implanted Type Area Stock Plan Administrator Device Identifier Shelf Expiration Date Model / Serial / Lot Sut Steel 6 M654g - [id number] Implanted:Qty : 4 on 10/02/2015 by Kevin Arciniega MD at OR [facility] N/A: Sternum JNJ : [employer] 08/14/2020 M654G / / [id number] Valve [facility] Hp21mm - [id number] - [id number] Implanted:Qty : 1 on 10/02/2015 by Kevin Arciniega MD at OR [facility] N/A: Heart [facility] [employer] : CARDIOVASCULAR 03/30/2019 21AFHPJ-50 5 / [id number] / Valve [facility] Chapo Mitral 31mj-501 - [id number] - [id number] Implanted:Qty : 1 on 10/02/2015 by Kevin Arciniega MD at OR [facility] N/A: Heart [employer] : CARDIOVASCULAR 03/07/2019 31MJ-501 / [id number] / documented as of this encounter Procedures Procedure Name Priority Date/Time Associated Diagnosis Comments DIFFERENTIAL, AUTOMATED Routine 11/11/2023 11:40 AM EST Paroxysmal atrial fibrillation (HCC) Hypothyroidism, postablative OAB (overactive bladder) HTN, goal below 140/90 Gastroesophageal reflux disease, unspecified whether esophagitis present CBC Routine 11/11/2023 11:40 AM EST Paroxysmal atrial fibrillation (HCC) Hypothyroidism, postablative OAB (overactive bladder) HTN, goal below 140/90 Gastroesophageal reflux disease, unspecified whether esophagitis present CBC Routine 11/11/2023 11:40 AM EST Paroxysmal atrial fibrillation (HCC) Hypothyroidism, postablative OAB (overactive bladder) HTN, goal below 140/90 Gastroesophageal reflux disease, unspecified whether esophagitis present documented in this encounter Results * DIFFERENTIAL, AUTOMATED (11/11/2023 11:40 AM EST) WBC 5.52 4.00 - 10.80 K/uL 11/11/2023 11:55 AM EST LABORATORY [place] 57[place]10 Neutrophils % 69.2 40.0 - 75.0 % 11/11/2023 11:55 AM EST LAB[facility]ORY [place] 57[place]10 Lymphocytes % 18.7 18.0 - 42.0 % 11/11/2023 11:55 AM EST LAB[facility]ORY [place] 57-10 Monocytes % 8.7 1.0 - 11.0 % 11/11/2023 11:55 AM EST LAB[facility]ORY [place] 57-10 Eosinophils % 2.9 0.0 - 6.0 % 11/11/2023 11:55 AM EST LAB[facility]ORY [place] 57[place]10 Basophils % 0.5 0.0 - 2.0 % 11/11/2023 11:55 AM EST LAB[facility]ORY [place] 57[place]10 Absolute Neutrophils 3.82 1.80 - 7.70 K/uL 11/11/2023 11:55 AM EST LAB[facility]ORY [place] 57-10 Absolute Lymphocytes 1.03 1.00 - 4.80 K/ul 11/11/2023 11:55 AM EST LAB[facility]ORY [place] 57[place]10 Absolute Monocytes 0.48 0.00 - 1.10 K/uL 11/11/2023 11:55 AM EST LAB[facility]ORY [place] 57-10 Absolute Eosinophils 0.16 0.00 - 0.70 K/uL 11/11/2023 11:55 AM EST LAB[facility]ATORY [place] 57[place]10 Absolute Basophils 0.03 0.00 - 0.20 K/uL 11/11/2023 11:55 AM EST LAB[facility]ATORY [place] 57-10 Blood Venous blood specimen / Unknown Venipuncture / Unknown 11/11/2023 11:40 AM EST 11/11/2023 11:40 AM EST Bhavna Obando DO LAB BLOOD ORDERABLE S LABORATORY [place] 57-10 [address] [place] [address] * CBC (11/11/2023 11:40 AM EST) WBC 5.52 4.00 - 10.80 K/uL 11/11/2023 11:55 AM EST LABORATORY [facility] 57-10 RBC 4.43 3.85 - 5.15 M/uL 11/11/2023 11:55 AM EST LAB[facility]ATORY [place] 57[place]10 HGB 13.2 12.0 - 15.3 g/dL 11/11/2023 11:55 AM EST LAB[facility]ATORY [place] 57[place]10 HCT 40.3 36.0 - 45.2 % 11/11/2023 11:55 AM EST LAB[facility]ATORY [place] 57-10 MCV 91.0 81.5 - 97.5 fL 11/11/2023 11:55 AM EST LABORATORY [facility] 57-10 MCH 29.8 27.0 - 34.0 pg 11/11/2023 11:55 AM EST LAB[facility]ATORY [place] 57-10 MCHC 32.8 32.0 - 36.0 g/dL 11/11/2023 11:55 AM EST LAB[facility]ATORY [place] 57-10 RDW 12.4 11.5 - 15.5 % 11/11/2023 11:55 AM EST LABORATORY [facility] 57-10 PLT 180 140 - 400 K/uL 11/11/2023 11:55 AM EST LABORATORY [facility] 57-10 MPV 11.8 6.6 - 11.1 fL 11/11/2023 11:55 AM EST LABORATORY [facility] 57-10 Blood Venous blood specimen / Unknown Venipuncture / Unknown 11/11/2023 11:40 AM EST 11/11/2023 11:40 AM EST Bhavna Obando DO LAB BLOOD ORDERABLE S LABORATORY [facility] 57-10 [address] [place] [address] documented in this encounter Visit Diagnoses Diagnosis Atrial fibrillation (HCC) Atrial fibrillation Paroxysmal atrial fibrillation (HCC) Atrial fibrillation Hypothyroidism, postablative Other postablative hypothyroidism OAB (overactive bladder) Hypertonicity of bladder HTN, goal below 140/90 Unspecified essential hypertension Gastroesophageal reflux disease, unspecified whether esophagitis present documented in this encounter Advance Directives Latest Code Status on File Code Status Date Activated Date Inactivated Comments Full Code 10/02/2015 11:47 AM 10/10/2015 5:43 PM This order reflects the patients wishes and were consensually agreed upon. Care Teams Party Director Relationship Specialty Start Date End Date Bhavna Obando DO [address] [place] [address] PCP - General Family Medicine 01/03/22 documented as of this encounter
--- OUTSIDE RECORDS SUMMARY | 2024-01-04 01:30 | External Medical Summary ---
Author Name Unknown Address Unknown Organization [id number]:LABORATORY [place] 57-[address] - [address] [place] [address] Laboratory Report Ordering Provider Test Date Status AUREA BROOKS 11/11/2023 11:40:17 Final Observation Date Value Abnormality Reference (Units ) Status BUN 11/11/2023 11:40:17 19 6-20 (mg/dL) Final Creatinine 11/11/2023 11:40:17 0.9 0.5-1.0 (mg/dL) Final Glomerular filtration rate/1.73 sq M.predicted [Volume Rate/Area] in Serum, Plasma or Blood by Creatinine-based formula (CKD-EPI) 11/11/2023 11:40:17 72 >=60 (mL/min) Final eGFR is calculated based on the CKD-EPI 2020 equation SODIUM 11/11/2023 11:40:17 137 135-146 (m mol/L) Final Potassium 11/11/2023 11:40:17 4.5 3.5-5.1 (m mol/L) Final Cl 11/11/2023 11:40:17 101 98-107 (mm ol/L) Final CO2 11/11/2023 11:40:17 25 22-32 (mmo l/L) Final Anion gap 11/11/2023 11:40:17 11 7-15 (mmol /L) Final Glucose 11/11/2023 11:40:17 77 70-120 (mg /dL) Final Albumin 11/11/2023 11:40:17 4.3 3.8-5.0 (g /dL) Final AST (Aspartate aminotransferase) 11/11/2023 11:40:17 34 10-35 (U/L) Fin al Alk Phos 11/11/2023 11:40:17 97 35-130 (U/ L) Final Bilirubin, Total 11/11/2023 11:40:17 0.4 <=1 .2 (mg/dL) Final Calcium 11/11/2023 11:40:17 9.8 8.4-10.2 ( mg/dL) Final Protein 11/11/2023 11:40:17 6.8 6.0-8.3 (g /dL) Final ALT (Alanine aminotransferase) 11/11/2023 11:40:17 37 Above high normal 10-35 (U/L) Final Performing Location [facility] - [address] [place] [address]
--- OUTSIDE RECORDS SUMMARY | 2024-01-04 01:30 | External Medical Summary ---
Author Name Unknown Address Unknown Organization K01:LABORATORY [facility] - [address] [place] [address] Laboratory Report Ordering Provider Test Date Status AUREA BROOKS 11/11/2023 11:43:31 Final Normal: <30 mg/g creatinine< br/>High: 30-300 mg/g creatinine
Very High: >300 mg/g creatinine
Nephrotic: >2200 mg/g creatinine Observation Date Value Abnormality Reference (Units) Status Albumin, Urine 11/11/2023 11:43:31 <1.20 (mg/dL) Final Creatinine, Urine 11/11/2023 11:43:31 24 (mg/dL) Final ALBUMIN/CREATININE RATIO, HIDE 11/11/2023 11:43:31 Uninterpretable Albumin/Creatinine ratio due to very low albumin and creatinine values. <30 (mg/g Creat) Final Performing Location LABORATORY [facility] - [address] [place] [address]
--- OUTSIDE RECORDS SUMMARY | 2024-01-04 01:30 | External Medical Summary ---
Author Name Unknown Address Unknown Organization K01:LABORATORY [facility] - [address] [facility] [address] Laboratory Report Ordering Provider Test Date Status AUREA BROOKS 11/11/2023 11:40:17 Final Observation Date Value Abnormality Reference (Units ) Status Triglyceride 11/11/2023 11:40:17 87 <=174 ( mg/dL) Final Triglyceride Reference Range s (mg/dL):
<150 Acceptable
150-174 Borderline high
175-499 High
>=500 Very high Cholesterol 11/11/2023 11:40:17 202 Above high normal <200 (mg/dL) Final Total Cholesterol Reference Ranges (mg/dL):
<200 Desirable
200-239 Borderline high
>=240 High HDL 11/11/2023 11:40:17 69 >49 (mg/dL ) Final HDL Cholesterol Reference Ra nges (mg/dL):
>=60 High (Desirable)
<50 Low (Undesirable) For Females
<40 Low (Undesirable) For Males NON-HDL CHOLESTEROL 11/11/2023 11:40:17 133 <=159 (mg/dL) Final Non-HDL Cholesterol Referenc e Range (mg/dL):
<100 Target level for high risk ASCVD patient
<130 Optimal for general population
130-159 Near optimal for general population
160-189 Borderline High
190-219 High
>=220 Very High LDL, (calculated) 11/11/2023 11:40:17 116 <= 129 (mg/dL) Final LDL Cholesterol Reference Ra nges (mg/dL):
<70 Target level for high risk ASCVD patient
<100 Optimal for general population
100-129 Near optimal for general population
130-159 Borderline high
160-189 High
>=190 Very high Performing Location LABORATORY [facility] - [address] [facility] [address]
--- OUTSIDE RECORDS SUMMARY | 2024-01-04 01:31 | External Medical Summary | Summary of Care ---
Author Name Unknown Organization [facility] Address [address] [facility] [facility] [address] Phone [phone] Care Team Providers Care Sole Skiver Name Role Phone Bhavna Obando DO Primary Care Provider [phone] Reason for Visit * Reason Comments Dosage Adjustment Via Phone (anticoag Cl inic) Encounter Details Date Type Department Care Team (Latest Contact Info) Description 09/11/2023 6:15 AM EST Anticoagulation Pharmacy Call Center [address] [place] [address] [facility] [address] [place] [address] Atrial fibrillation, unspecified type (HCC)*; Rheumatic aortic stenosis; Paroxysmal atrial fibrillation (HCC); Mitral valve insufficiency, unspecified etiology Allergies Active Allergy Reactions Criticality Noted Date Comments Benzocaine 09/06/2008 Ear drops Nsaids 01/29/2008 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 documented as of this encounter (statuses as of 09/11/2023) Medications Medication Sig Dispensed Refills Start Date [...] TO SINGLE JOINT OF LOWER EXTREMITIES, Pharmacy: [address] g 5 01/03/2022 Active Amoxicillin [...] as of this encounter (statuses as of 09/11/2023) Active Problems Problem Noted Date Diagnosed Date [...] 05/27/2008 Postnasal drip 05/27/2008 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/22/2007 alf current use of anticoagulant therapy 0 09/26/2003 MITRAL STENOSIS W INSUFF 01/14/2003 Viral warts 03/04/2001 Overview: ICD-10 update of inactive term Herpes simplex virus infection 09/09/2000 AC PROLIFERAT NEPHRITIS 07/01/2000 RHEUMATIC HEART DIS NOS 05/23/2000 Lipoma 01/09/2000 Overview: ICD-10 update of inactive term MUSCULAR BACK PAIN 12/10/1999 Endometriosis 12/10/1999 documented as of this encounter (statuses as of 09/11/2023) Resolved Problems Problem Noted Date Diagnosed Date Resolved Date Hyperthyroidism 06/15/2014 09/28/2015 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 017 Other and unspecified rheuma tic heart diseases(398.99) 05/22/2007 05/27/2008 Anticoagulation management encounter 01/14/2003 05/27/2008 Allergic rhinitis 01/09/2000 05/27/2008 documented as of this encounter (statuses as of 09/11/2023) Immunizations Name Administration Dates Next Due COVID-19 [...] as of this encounter Progress Notes * Zoya Valencia PHARM Tech - 09/11/2023 1:45 PM EST Contacts Type Contact Phone/Fax 09/11/2023 01:39 PM EST Phone (Outgoing) Yahaira Worthy (Self) [phone] (M) Left Message Subjective Advised patient to contact Anticoagulation Clinic if any unusual bruising or bleeding, recent illness, changes in medication, or questions/concerns. PT/INR results, Coumadin dose instructions, and next PT/INR date communicated as noted by Pharmacist: Yes SERVANDO LAO 09/11/2023, 1:45 PM * Stacey Buenrostro RP - 09/11/2023 9:14 AM EST Coumadin Clinic (region specific) Objective Current Warfarin Dose As of 09/11/2023 Warfarin maintenance plan: 7.5 mg (5 mg x 1.5) every Fri, Fri, Fri; 10 mg (5 mg x 2) all other days INR Result As of 09/11/2023 INR goal: 2.5-3.5 INR used for dosin.8 (09/10/2023) Assessment & Plan Warfarin Plan As of 09/11/2023 Full warfarin instructions: 09/11: Hold; Otherwise 7.5 mg every Fri, Fri, Fri; 10 mg all other days Next INR check: 10/22/2023 Repeat PT/INR in 6 week(s) Weekly dose: not changed Additional Dosing Information: Description [employer] Broker to contact patient with dose instructions as noted. Stacey Buenrostro RPh 09/11/2023, 9:14 AM documented in this encounter Plan of Treatment Scheduled Procedures Name Priority Associated Diagnoses Date/Ti me COLONOSCOPY FLEXIBLE PROXIMAL DIAGNOSTIC Recall History of colon polyps Health Maintenance Due Date Last Done Comments HIV Screening 1975 Hepatitis C Screening 12/22/1979 HPV/Co-Test 12/22/1991 LUNG CANCER SCREENING - USE SMARTSET 07446 12/22/2011 Depression Screening 02/05/2017 02/06/2016 COVID-19 Vaccine [...] this encounter Medical Devices Implanted Type Area Nurse Informaticist Device Identifier Shelf Expiration Date Model / Serial / Lot Valve [facility] Chapo Mitral 31mj-501 - [id number] - [id number] Implanted:Qty: 1 on 10/02/2015 by Kevin Arciniega MD at OR [facility] [place] N/A: Heart [facility] CHAPO : CARDIOVASCULAR 03/07/2019 31MJ-501 / [id number] / documented as of this encounter Visit [...] and were consensually agreed upon. Care Teams Sole Skiver Relationship Specialty Start Date End Date Bhavna Obando DO [address] [address] PCP - General Family Medicine 01/03/22 documented as of this encounter
--- OUTSIDE RECORDS SUMMARY | 2024-01-04 01:31 | External Medical Summary | Summary of Care ---
Author Name Unknown Organization [facility] Address [address] [facility] [place] [address] Phone [phone] Care Team Providers Care Utilization Review Nurse Name Role Phone Cecilia Villar DO Primary Care Provider [phone] Reason for Visit * Reason Comments eRx-Medication Refill Encounter Details Date Type Department Care Team (Late st Contact Info) Description 09/05/2023 Refill Family Practice [facility] [address] [place] [address] Cecilia Villar DO [address] [place] [address] Allergies Active Allergy Reactions Criticality Noted Date Comments Benzocaine 09/06/2008 Ear drops Nsaids 01/29/2008 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 Do not cut, crush or chew. 30 Tablet 11 2 Active amLODIPine Besylate 2.5 MG Oral Tablet (Norvasc)Indicat [...] if needed 8.5 g 3 3 Active Baclofen 20 MG Oral TabletIndication s:Cervicalgia Take 1 Tablet by mouth in the morning and 1 Tablet at noon and 1 Tablet before bedtime. 30 Tablet 0 3 Active busPIRone HCl 10 MG Oral Tablet (Buspar)Indicati ons:Anxiety TAKE ONE TABLET BY MOUTH IN THE MORNING AND ONE BEFORE BEDTIME 60 Tablet 5 3 Active Escitalopram Oxalate 20 MG Oral Tablet (Lexapro) TAKE 1 TABLET BY MOUTH EVERY MORNING 90 Tablet 3 3 Active Levothyroxine Sodium 112 MCG Oral Tablet (Levoxyl)Indicat ions:Hypothyroid ism, postablative TAKE 1 TABLET BY MOUTH DAILY FIRST THING IN THE MORNING. AT LEAST 30 MINTUES PRIOR TO BREAKFAST OR OTHER MEDS 90 Tablet 1 3 Active traZODone HCl 50 MG Oral Tablet (Desyrel)Indicat [...] EVERY MORNING 90 Capsule 0 3 Active Omeprazole 20 MG Oral Capsule Delayed Release (PriLOSEC) Take 1 Capsule (20 mg) by mouth in the morning. 90 Capsule 3 2 023 Discontinued documented as of this encounter (statuses as of 10/08/2023) Active Problems Problem Noted Date Diagnosed Date [...] 05/27/2008 Postnasal drip 05/27/2008 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/22/2007 longterm current use of anticoagulant therapy 0 09/26/2003 MITRAL STENOSIS W INSUFF 01/14/2003 Viral warts 03/04/2001 Overview: ICD-10 update of inactive term Herpes simplex virus infection 09/09/2000 AC PROLIFERAT NEPHRITIS 07/01/2000 RHEUMATIC HEART DIS NOS 05/23/2000 Lipoma 01/09/2000 Overview: ICD-10 update of inactive term MUSCULAR BACK PAIN 12/10/1999 Endometriosis 12/10/1999 documented as of this encounter (statuses as of 10/08/2023) Resolved Problems Problem Noted Date Diagnosed Date Resolved Date Hyperthyroidism 06/15/2014 09/28/2015 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 Patient was notified. Successfully contacted patient and provided [facility] message. * Telephone Encounter - Asher Serna [facility] - 09/05/2023 4:26 PM ESTSigned Prescriptions: Disp Refills Omeprazole 20 MG Oral Capsule Delayed Rele*90 Cap*0 Sig: TAKE ONE CAPSULE BY MOUTH EVERY MORNING Authorizing Provider: CECILIA VILLAR User: ASHER SERNA * Telephone Encounter - Asher Serna RP - 09/05/2023 4:26 PM EST Please contact patient so that an appointment can be scheduled with her PRIMARY CARE provider. Refill authorized to hold patient over in the mean time. Last Visit: 02/05/2023 ACUTE (in office), Visit date not found (telemedicine) Next Visit: Visit date not found Asher Jaquez, PharmD Clinical Pharmacist [facility] ([facility]) (formerly Telepharmacy) [phone] 09/05/2023 4:26 PM documented in this encounter Plan of Treatment Upcoming Encounters Date Type Department Care Team (Late st Contact Info) Description 10/22/2023 12:00 PM EST Laboratory Laboratory, [place] [address] [place] [id number] [facility] Laboratory [facility] [address] [place], [place] [id number] 10/23/2023 6:15 AM EST Anticoagulation Pharmacy Call Center [address] [place] [address] [facility] [address] [facility] [address] Scheduled Procedures Name Priority Associated Diagnoses Date/Ti me COLONOSCOPY FLEXIBLE PROXIMAL DIAGNOSTIC Recall History of colon polyps Health Maintenance Due Date Last Done Comments HIV Screening 1975 Hepatitis C Screening 12/22/1979 HPV/Co-Test 12/22/1991 LUNG CANCER SCREENING - USE SMARTSET 38851 12/22/2011 Depression Screening 02/05/2017 02/06/2016 COVID-19 Vaccine ( season) 2023 07/05/2021, 06/07/2021 Influenza Vaccine (FLU shot) (#1) 2023 06/15/2022, 05/30/2016, 04/19/2015, Additional history exists TSH 02/12/2024 02/11/2023, 04/2 09/2021, 10/07/2016, Additional history exists Mammogram 03/17/2024 03/17/2023, [...] this encounter Medical Devices Implanted Type Area Violin Repairer Device Identifier Shelf Expiration Date Model / Serial / Lot Valve St Chapo Mitral 31mj-501 - [id number] - [id number] Implanted:Qty: 1 on 10/02/2015 by [place] Arcin[place]ga [place] [facility] [place]/A: Heart [facility] CHAPO : CARDIOVASCULAR 03/07/2019 31MJ-501 / [id number] / documented as of this encounter Advance Directives Latest Code Status on File Code Status Date Activated Date Inactivated Comments Full Code 10/02/2015 11:47 AM 10/10/2015 5:43 PM This order reflects the patients wishes and were consensually agreed upon. Care Teams Utilization Review Nurse Relationship Specialty Start Date End Date Cecilia Villar DO [address] [address] PCP - General Family Medicine 01/03/22 documented as of this encounter
--- OUTSIDE RECORDS SUMMARY | 2024-01-04 01:31 | External Medical Summary | Summary of Care ---
Author Name Unknown Organization [facility] Address [address] [place] [address] Phone [phone] Care Team Providers Care Distresser Name Role Phone Bhavna Obando DO Primary Care Provider [phone] Reason for Visit * Reason Comments Outpatient Testing Encounter Details Date Type Department Care Team (Late st Contact Info) Description 07/30/2023 2:20 PM EST Laboratory Laboratory, [place] [address] [place] [address] [facility] [address] [place], [place] [id number] Atrial fibrillation (HCC) Allergies Active Allergy Reactions Criticality Noted Date Comments Benzocaine 09/06/2008 Ear drops Nsaids 01/29/2008 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 0 09/26/2003 MITRAL STENOSIS W INSUFF 01/14/2003 Viral warts 03/04/2001 Overview: ICD-10 update of inactive term Herpes simplex virus infection 09/09/2000 AC PROLIFERAT NEPHRITIS 07/01/2000 RHEUMATIC HEART DIS NOS 05/23/2000 Lipoma 01/09/2000 Overview: ICD-10 update of inactive term MUSCULAR BACK PAIN 12/10/1999 Endometriosis 12/10/1999 documented as of this encounter (statuses as of 07/30/2023) Resolved Problems Problem Noted Date Diagnosed Date Resolved Date Hyperthyroidism 06/15/2014 09/28/2015 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 017 Other and unspecified rheuma tic heart diseases(398.99) 05/22/2007 05/27/2008 Anticoagulation management encounter 01/14/2003 05/27/2008 Allergic rhinitis 01/09/2000 05/27/2008 documented as of this encounter (statuses as of 07/30/2023) Immunizations Name Administration Dates Next Due COVID-19 [...] Care Team (Late st Contact Info) Description 07/31/2023 6:15 AM EST Anticoagulation Pharmacy Call Center [address] [facility] [place] [address] [facility] [address] [facility] [place] [address] Pending Results Name Type Priority Associated Diagnoses Date /Time PT INR Lab Routine Atrial fibrillation (HCC) 07/30/2023 2:25 PM EST Scheduled Procedures Name Priority Associated Diagnoses Date/Ti me COLONOSCOPY FLEXIBLE PROXIMAL DIAGNOSTIC Recall History of colon polyps Health Maintenance Due Date Last Done Comments HIV Screening 1975 Hepatitis C Screening 12/22/1979 HPV/Co-Test 12/22/1991 LUNG CANCER SCREENING - USE SMARTSET 86279 12/22/2011 Depression Screening 02/05/2017 02/06/2016 COVID-19 Vaccine [...] this encounter Medical Devices Implanted Type Area Brokerage Manager Device Identifier Shelf Expiration Date Model / Serial / Lot Valve [facility] Chapo Mitral 31mj-501 - [id number] - [id number] Implanted:Qty: 1 on 10/02/2015 by Kevin Arciniega MD at [place] [facility] [place] N/A: Heart [facility] CHAPO : CARDIOVASCULAR 03/07/2019 31MJ-501 / [id number] / documented as of this encounter Visit Diagnoses Diagnosis Atrial fibrillation (HCC) Atrial fibrillation documented in this encounter Advance Directives Latest Code Status on File Code Status Date Activated Date Inactivated Comments Full Code 10/02/2015 11:47 AM 10/10/2015 5:43 PM This order reflects the patients wishes and were consensually agreed upon. Care Teams Distresser Relationship Specialty Start Date End Date Bhavna Obando DO [address] [address] PCP - General Family Medicine 01/03/22 documented as of this encounter
--- OUTSIDE RECORDS SUMMARY | 2024-01-04 01:31 | External Medical Summary ---
Author Name Unknown Address Unknown Organization [id number]:LABORATORY [facility] [place] - [address] [address] Laboratory Report Ordering Provider Test Date Status SIDNEY ALBERTS 10/22/2023 11:48:20 Final Please draw PT/INR every 1-4 weeks or as requested by the [facility] Coumadin Clinic

Warfarin Therapy
INR: 2.0-3.0 conventional anticoagulation
INR: 2.5-3.5 high intensity anticoagulation Observation Date Value Abnormality Reference (Units ) Status PT 10/22/2023 11:48:20 40.7 Above high normal 11 .6-15.2 (seconds) Final INR 10/22/2023 11:48:20 4.1 Above high normal 0. 8-1.2 Final Performing Location LABORATORY [facility] [place] - [address] [place] [address]
--- OUTSIDE RECORDS SUMMARY | 2024-01-04 01:31 | External Medical Summary | Summary of Care ---
Author Name Unknown Organization [facility] Address [address] [place] [address] Phone [phone] Care Team Providers Care Huller Operator Name Role Phone Bhavna Obando DO Primary Care Provider [phone] Reason for Visit * Reason Comments Dosage Adjustment Via Phone (anticoag Cl inic) Encounter Details Date Type Department Care Team (Latest Contact Info) Description 07/31/2023 6:15 AM EST Anticoagulation Pharmacy Call Center [address] [place] [address] [facility] [address] [place] [address] Atrial fibrillation, unspecified type (HCC)*; Rheumatic aortic stenosis; Paroxysmal atrial fibrillation (HCC); Mitral valve insufficiency, unspecified etiology Allergies Active Allergy Reactions Criticality Noted Date Comments Benzocaine 09/06/2008 Ear drops Nsaids 01/29/2008 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 documented as of this encounter (statuses as of 07/31/2023) Medications Medication Sig Dispensed Refills Start Date [...] SINGLE JOINT OF LOWER EXTREMITIES, Pharmacy: [facility] [address] g 5 01/03/2022 Active Amoxicillin [...] as of this encounter (statuses as of 07/31/2023) Active Problems Problem Noted Date Diagnosed Date [...] 05/27/2008 Postnasal drip 05/27/2008 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/22/2007 half-way current use of anticoagulant therapy 0 09/26/2003 MITRAL STENOSIS W INSUFF 01/14/2003 Viral warts 03/04/2001 Overview: ICD-10 update of inactive term Herpes simplex virus infection 09/09/2000 AC PROLIFERAT NEPHRITIS 07/01/2000 RHEUMATIC HEART DIS NOS 05/23/2000 Lipoma 01/09/2000 Overview: ICD-10 update of inactive term MUSCULAR BACK PAIN 12/10/1999 Endometriosis 12/10/1999 documented as of this encounter (statuses as of 07/31/2023) Resolved Problems Problem Noted Date Diagnosed Date Resolved Date Hyperthyroidism 06/15/2014 09/28/2015 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 017 Other and unspecified rheuma tic heart diseases(398.99) 05/22/2007 05/27/2008 Anticoagulation management encounter 01/14/2003 05/27/2008 Allergic rhinitis 01/09/2000 05/27/2008 documented as of this encounter (statuses as of 07/31/2023) Immunizations Name Administration Dates Next Due COVID-19 [...] as of this encounter Progress Notes * Niecy Barahona performance instructor - 07/31/2023 11:01 AM EST Contacts Type Contact Phone/Fax 07/31/2023 10:57 AM EST Phone (Outgoing) Yahaira Worthy (Self) [phone] (M) Left Message Subjective Advised patient to contact Anticoagulation Clinic if any unusual bruising or bleeding, recent illness, changes in medication, or questions/concerns. PT/INR results, Coumadin dose instructions, and next PT/INR date communicated as noted by Pharmacist: Yes SERVANDO ENGLAND Tech 07/31/2023, 11:01 AM * Stacey Buenrostro RP - 07/31/2023 8:48 AM EST Coumadin Clinic (region specific) Objective Current Warfarin Dose As of 07/31/2023 Warfarin maintenance plan: 7.5 mg (5 mg x 1.5) every Fri, Fri, Fri; 10 mg (5 mg x 2) all other days INR Result As of 07/31/2023 INR goal: 2.5-3.5 INR used for dosin.6 (07/30/2023) Assessment & Plan Warfarin Plan As of 07/31/2023 Full warfarin instructions: 7.5 mg every Sun, Tue, [place]; 10 mg all other days No change documented: Stacey Buenrostro RPh Next INR check: 09/03/2023 Repeat PT/INR in 5 week(s) Weekly dose: not changed Additional Dosing Information: Description [place] [address] Mate to contact patient with dose instructions as noted. Stacey Buenrostro RPh 07/31/2023, 8:49 AM documented in this encounter Plan of Treatment Scheduled Procedures Name Priority Associated Diagnoses Date/Ti me COLONOSCOPY FLEXIBLE PROXIMAL DIAGNOSTIC Recall History of colon polyps Health Maintenance Due Date Last Done Comments HIV Screening 1975 Hepatitis C Screening 12/22/1979 HPV/Co-Test 12/22/1991 LUNG CANCER SCREENING - USE SMARTSET 68723 12/22/2011 Depression Screening 02/05/2017 02/06/2016 COVID-19 Vaccine [...] this encounter Medical Devices Implanted Type Area Charity Fundraiser Device Identifier Shelf Expiration Date Model / Serial / Lot Valve [facility] Chapo Mitral 31mj-501 - [id number] - [id number] Implanted:Qty: 1 on 10/02/2015 by Kevin Arciniega MD at [place] [facility] [place] N/A: Heart [facility] CHAPO : CARDIOVASCULAR 03/07/2019 31MJ-501 / [id number] / documented as of this encounter Visit [...] and were consensually agreed upon. Care Teams Huller Operator Relationship Specialty Start Date End Date Bhavna Obando DO [address] [address] PCP - General Family Medicine 01/03/22 documented as of this encounter
--- OUTSIDE RECORDS SUMMARY | 2024-01-04 01:31 | External Medical Summary ---
Author Name Unknown Address Unknown Organization [id number]:[facility]ORY [facility] [place] - [facility] [address] [address] Laboratory Report Ordering Provider Test Date Status SIDNEY ALBERTS 07/30/2023 14:25:00 Final Please draw PT/INR every 1-4 weeks or as requested by the [facility] Coumadin Clinic

Warfarin Therapy
INR: 2.0-3.0 conventional anticoagulation
INR: 2.5-3.5 high intensity anticoagulation Observation Date Value Abnormality Reference (Units ) Status PT 07/30/2023 14:25:00 27.7 Above high normal 11 .6-15.2 (seconds) Final INR 07/30/2023 14:25:00 2.6 Above high normal 0. 8-1.2 Final Performing Location LAB[facility]ORY [facility] [place] - [facility] [address] [place] [address]
--- OUTSIDE RECORDS SUMMARY | 2024-01-04 01:31 | External Medical Summary ---
Author Name Unknown Address Unknown Organization K01[place] [place] [facility] [address] [address] Laboratory Report Ordering Provider Test Date Status SIDNEY ALBERTS 09/10/2023 12:02:53 Final Please draw PT/INR every 1-4 weeks or as requested by the [facility] Coumadin Clinic

Warfarin Therapy
INR: 2.0-3.0 conventional anticoagulation
INR: 2.5-3.5 high intensity anticoagulation Observation Date Value Abnormality Reference (Units ) Status PT 09/10/2023 12:02:53 37.5 Above high normal 11 .6-15.2 (seconds) Final INR 09/10/2023 12:02:53 3.8 Above high normal 0. 8-1.2 Final Performing Location [facility] [place] [address] [address]
--- OUTSIDE RECORDS SUMMARY | 2024-01-04 01:31 | External Medical Summary | Summary of Care ---
Author Name Unknown Organization [facility] Address [address] [place] [address] Phone [phone] Care Team Providers Care Manager Cable Name Role Phone Bhavna Obando DO Primary Care Provider [phone] Reason for Visit * Reason Comments Outpatient Testing Encounter Details Date Type Department Care Team (Late st Contact Info) Description 10/22/2023 12:00 PM EST Laboratory Laboratory, [place] [address] [place] [address] [facility] [address] [place], [place] [id number] Atrial fibrillation (HCC) Allergies Active Allergy Reactions Criticality Noted Date Comments Benzocaine 09/06/2008 Ear drops Nsaids 01/29/2008 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 documented as of this encounter (statuses as of 10/22/2023) Medications Medication Sig Dispensed Refills Start Date [...] TO SINGLE JOINT OF LOWER EXTREMITIES, Pharmacy: [address] 100 g 5 01/03/2022 Active Amoxicillin [...] as of this encounter (statuses as of 10/22/2023) Active Problems Problem Noted Date Diagnosed Date [...] 05/27/2008 Postnasal drip 05/27/2008 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 0 09/26/2003 MITRAL STENOSIS W INSUFF 01/14/2003 Viral warts 03/04/2001 Overview: ICD-10 update of inactive term Herpes simplex virus infection 09/09/2000 AC PROLIFERAT NEPHRITIS 07/01/2000 RHEUMATIC HEART DIS NOS 05/23/2000 Lipoma 01/09/2000 Overview: ICD-10 update of inactive term MUSCULAR BACK PAIN 12/10/1999 Endometriosis 12/10/1999 documented as of this encounter (statuses as of 10/22/2023) Resolved Problems Problem Noted Date Diagnosed Date Resolved Date Hyperthyroidism 06/15/2014 09/28/2015 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 017 Other and unspecified rheuma tic heart diseases(398.99) 05/22/2007 05/27/2008 Anticoagulation management encounter 01/14/2003 05/27/2008 Allergic rhinitis 01/09/2000 05/27/2008 documented as of this encounter (statuses as of 10/22/2023) Immunizations Name Administration Dates Next Due COVID-19 [...] Care Team (Late st Contact Info) Description 10/23/2023 6:15 AM EST Anticoagulation Pharmacy Call Center [phone] [facility] [place] [phone] [facility] [phone] [facility] [place] [phone] 11/11/2023 10:40 AM EST Office Visit Family Practice [facility] [address] [place] [phone] Bhavna Obando, [address] [place] [address] Pending Results Name Type Priority Associated Diagnoses Date /Time PT INR Lab Routine Atrial fibrillation (HCC) 10/22/2023 11:48 AM EST Scheduled Procedures Name Priority Associated Diagnoses Date/Ti me COLONOSCOPY FLEXIBLE PROXIMAL DIAGNOSTIC Recall History of colon polyps Health Maintenance Due Date Last Done Comments HIV Screening 1975 Hepatitis C Screening 12/22/1979 HPV/Co-Test 12/22/1991 LUNG CANCER SCREENING - USE SMARTSET 09475 12/22/2011 Depression Screening 02/05/2017 02/06/2016 COVID-19 Vaccine [...] 1009/2012, 03/31/2012, Additional history exists Diabetes Screening 02/11/2026 [...] this encounter Medical Devices Implanted Type Area Kennel Worker Device Identifier Shelf Expiration Date Model / Serial / Lot Valve [employer] Mitral 31mj-501 - [id number] - [id number] Implanted:Qty: 1 on 10/02/2015 by [place] Arcin[place]ga [place] [facility] [place]: Heart [facility] [employer] : CARDIOVASCULAR 03/07/2019 31MJ-501 / [id number] / documented as of this encounter Visit Diagnoses Diagnosis Atrial fibrillation (HCC) Atrial fibrillation documented in this encounter Advance Directives Latest Code Status on File Code Status Date Activated Date Inactivated Comments Full Code 10/02/2015 11:47 AM 10/10/2015 5:43 PM This order reflects the patients wishes and were consensually agreed upon. Care Teams Manager Cable Relationship Specialty Start Date End Date Bhavna Obando DO [address] [place] [address] PCP - General Family Medicine 01/03/22 documented as of this encounter
--- OUTSIDE RECORDS SUMMARY | 2024-01-04 01:31 | External Medical Summary | Summary of Care ---
Author Name Unknown Organization [facility] Address [address] [place] [address] Phone [phone] Care Team Providers Care Quirk Sander Name Role Phone Bhavna Obando DO Primary Care Provider [phone] Reason for Visit * Reason Comments Outpatient Testing Encounter Details Date Type Department Care Team (Late st Contact Info) Description 09/10/2023 12:00 PM EST Laboratory Laboratory, [place] [address] [place] [address] [place], [facility] [address], [place] [id number] Atrial fibrillation (HCC) Allergies Active Allergy Reactions Criticality Noted Date Comments Benzocaine 09/06/2008 Ear drops Nsaids 01/29/2008 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 documented as of this encounter (statuses as of 09/10/2023) Medications Medication Sig Dispensed Refills Start Date [...] TO SINGLE JOINT OF LOWER EXTREMITIES, Pharmacy: [address] 100 g 5 01/03/2022 Active Amoxicillin [...] as of this encounter (statuses as of 09/10/2023) Active Problems Problem Noted Date Diagnosed Date [...] 05/27/2008 Postnasal drip 05/27/2008 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 0 09/26/2003 MITRAL STENOSIS W INSUFF 01/14/2003 Viral warts 03/04/2001 Overview: ICD-10 update of inactive term Herpes simplex virus infection 09/09/2000 AC PROLIFERAT NEPHRITIS 07/01/2000 RHEUMATIC HEART DIS NOS 05/23/2000 Lipoma 01/09/2000 Overview: ICD-10 update of inactive term MUSCULAR BACK PAIN 12/10/1999 Endometriosis 12/10/1999 documented as of this encounter (statuses as of 09/10/2023) Resolved Problems Problem Noted Date Diagnosed Date Resolved Date Hyperthyroidism 06/15/2014 09/28/2015 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 [phone] [facility] [place] [address] Pending Results Name Type Priority Associated Diagnoses Date /Time PT INR Lab Routine Atrial fibrillation (HCC) 09/10/2023 12:02 PM EST Scheduled Procedures Name Priority Associated Diagnoses Date/Ti me COLONOSCOPY FLEXIBLE PROXIMAL DIAGNOSTIC Recall History of colon polyps Health Maintenance Due Date Last Done Comments HIV Screening 1975 Hepatitis C Screening 12/22/1979 HPV/Co-Test 12/22/1991 LUNG CANCER SCREENING - USE SMARTSET 72718 12/22/2011 Depression Screening 02/05/2017 02/06/2016 COVID-19 Vaccine ( season) 2023 07/05/2021, 06/07/2021 Influenza Vaccine (FLU shot) (#1) 2023 06/15/2022, 05/30/2016, 04/19/2015, Additional history exists TSH 02/12/2024 02/11/2023, /09/2021, 10/07/2016, Additional history exists Mammogram 03/17/2024 03/17/2023, [...] this encounter Medical Devices Implanted Type Area Tightening Machine Operator Device Identifier Shelf Expiration Date Model / Serial / Lot Valve [facility] [employer] Mitral 31mj-501 - [id number] - [id number] Implanted:Qty: 1 on 10/02/2015 by Kevin Arciniega MD at [place] [facility] [place] N/A: Heart [facility] : CARDIOVASCULAR 03/07/2019 31MJ-501 / [id number] / documented as of this encounter Visit Diagnoses Diagnosis Atrial fibrillation (HCC) Atrial fibrillation documented in this encounter Advance Directives Latest Code Status on File Code Status Date Activated Date Inactivated Comments Full Code 10/02/2015 11:47 AM 10/10/2015 5:43 PM This order reflects the patients wishes and were consensually agreed upon. Care Teams Quirk Sander Relationship Specialty Start Date End Date Bhavna Obando DO [address] [place] [address] PCP - General Family Medicine 01/03/22 documented as of this encounter
--- NOTE | 2024-01-04 02:15 | CT Scan Report ---
Exam(s): CT C SPINE EXAM: CT Cervical Spine Without Intravenous Contrast CLINICAL HISTORY: Reason for exam: syncope, fall on thinners. TECHNIQUE: Axial computed tomography images of the cervical spine without intravenous contrast. CTDI is 23.06 mGy and DLP is 452.87 mGy-cm. Automated exposure control was utilized for the study. A dose lowering technique was utilized adhering to the principles of ALARA. COMPARISON: No relevant prior studies available. FINDINGS: The vertebral body heights are maintained. The craniocervical junction is intact. The atlanto-dens interval is maintained. The dens is intact. There is no spondylolisthesis. Multilevel cervical spondylosis and degenerative disc disease. Straightening of the cervical lordosis. The unenhanced neck soft tissues are grossly unremarkable. The visualized lung apices are grossly clear. IMPRESSION: No acute fracture or subluxation of the cervical spine. Electronically signed by: Faisal Joy MD 01/04/24 02:14 AM
--- NOTE | 2024-01-04 02:16 | CT Scan Report ---
Exam(s): CT HEAD Without Contrast EXAM: CT Head Without Intravenous Contrast CLINICAL HISTORY: Reason for exam: syncope, fall on thinners. TECHNIQUE: Axial computed tomography images of the head/brain without intravenous contrast. CTDI is 36.55 mGy and DLP is 624.41 mGy-cm. Automated exposure control was utilized for the study. A dose lowering technique was utilized adhering to the principles of ALARA. COMPARISON: No relevant prior studies available. FINDINGS: No acute intracranial hemorrhage. No midline shift or mass effect. The territorial burroughs-white matter differentiation is maintained throughout. The ventricles and sulci are commensurate with age. The visualized orbits appear grossly unremarkable. The calvarium is intact. The visualized paranasal sinuses and mastoid air cells are grossly clear. IMPRESSION: No acute intracranial hemorrhage, midline shift, or mass effect. Electronically signed by: Faisal Joy MD 01/04/24 02:15 AM
[2024-01-04 02:21] LABS: Basophils # (auto) 0.09 K/uL (0.00-0.20); Basophils % (auto) 0.4 %; Eosinophils # (auto) 0.18 K/uL (0.00-0.50); Eosinophils % (auto) 0.7 %; Hematocrit (blood only) 41.1 % (37.0-47.0); Hemoglobin 13.5 g/dl (12.0-16.0); Immature Granulocytes # (auto) 0.25 K/uL (0.01-0.20); Lymphocytes # (auto) 3.94 K/uL (1.20-3.40); Lymphocytes % (auto) 15.5 %; Mean Corpuscular Hemoglobin 29.3 pg (25.0-34.0); Mean Corpuscular Hgb Conc 32.8 g/dL (32.0-36.0); Mean Corpuscular Volume 89.2 fL (80.0-100.0); Mean Platelet Volume 12.3 fL (9.4-12.4); Monocytes # (auto) 1.43 K/uL (0.11-0.59); Monocytes % (auto) 5.6 %; Neutrophils # (auto) 19.52 K/uL (1.40-6.50); Neutrophils % (auto) 76.8 %; Platelet Count 229 K/uL (130-400); RDW Coefficient of Variation 13.6 % (11.5-14.5); RDW Standard Deviation 43.7 fL (36.4-46.3); Red Blood Count 4.61 M/uL (4.20-5.40); White Blood Count 25.41 K/ul (4.8-10.8)
[2024-01-04 02:37] LABS: Albumin Globulin Ratio 1.5 (0.9-2); Albumin Level 4.1 gm/dl (3.4-5.0); BUN Creatinine Ratio 14.3 (10-20); Bilirubin,Total 0.7 mg/dl (0.2-1.0); Calcium 9.7 mg/dl (8.6-10.3); Creatinine Clr Calc Pharmacy 47.7 ml/min; Est GFR (African American) 52.9 ml/min; Est GFR (Non-African American) 45.6 ml/min; Globulin 2.8 gm/dl (2.5-4.0); Total Protein 6.9 gm/dl (6.0-8.3)
[2024-01-04 02:44] LABS: Troponin I High Sensitivity 13.5 pg/ml (0-14)
[2024-01-04 02:53] LABS: INR 4.2 (0.9-1.1); Partial Thromboplastin Ratio 1.4; Partial Thromboplastin Time 39 Seconds (21-31); Prothrombin Time 42.4 Seconds (9.0-12.0); Thyroid Stimulating Hormone 9.512 uIu/ml (0.300-4.500)
--- NOTE | 2024-01-04 03:18 | Emergency Department Note ---
Impression & Plan Syncope and collapse, Leukocytosis, Elevated CPK ED Provider Note CHIEF COMPLAINT: Syncope HISTORY OF PRESENTING ILLNESS: This 63-year-old female patient presents to the emergency department via EMS from home with her and son after having several syncopal episodes. The patient's states that he fell asleep on the couch and when he woke up, he noticed that she had fallen onto the floor and was laying on the floor. The patient's was unable to get her to bed. She then woke up to go to the bathroom and she fell again trying to walk to the bathroom. Her witnessed this fall, but was unable to catch her in time. She fell to the floor hitting her head and right knee. She lost control of her bowels when she fell going to the bathroom (she had gotten up to have a BM). The patient's states that she was unresponsive for a "couple minutes" after this episode. Her states that she was still woozy when she woke up and took a while to get back to normal. Her states that she is still a little groggy now, but otherwise back to her baseline. Her states that she did take her medications before bed that does make her sleepy, but this seems different. Her states that she was very unsteady on her feet and had trouble walking. She has an abrasion to the right knee. She denies any chest pain or shortness of breath. She denies abdominal pain, nausea, or vomiting. Denies any urinary symptoms. However, she has a history of frequent UTIs without many symptoms. Has a history of frequent falls with her previous UTIs. Denies any constipation, diarrhea, or changes in her bowel movements. She was recently started on Augmentin, prednisone, and Tessalon Perles for a sinus infection, but finished the antibiotics on 01/02/24 and the steroid taper prior to that. She is on Coumadin 10 mg 3 days a week and 7.5 mg the rest of the days. She is on the Coumadin for history of mechanical aortic valve and Afib. REVIEW OF SYSTEMS: See HPI for pertinent positives and pertinent negatives. ALLERGIES: Cipro, benzocaine, NSAIDs, ceftriaxone MEDICATIONS: See below PAST MEDICAL HISTORY: See below PHYSICAL EXAM: VITALS: Vitals are noted on the nurse's note and reviewed by myself. GENERAL: No acute distress, non-diaphoretic. SKIN: The patient has a superficial abrasion to the anterior aspect of the right knee. No lacerations noted. Capillary reflex less than 2 seconds. HEAD: The patient is mildly tender to palpation over the occipital area of the scalp. No step-offs felt. EARS: Bilateral external auditory canals clear without tragus tenderness. Bilateral tympanic membranes pearly burroughs without erythema or effusion. No mastoid tenderness bilaterally. No hemotympanum. No gaffney sign. EYES: Pupils equal round and reactive to light and accommodation. Conjunctivae without injection, sclerae without icterus. Extraocular movements intact. NOSE: Patent without discharge. No sinus tenderness. No septal hematoma or bleeding. FACE: No facial bone tenderness. Full range of motion of the jaw without tenderness. MOUTH: Mucous membranes moist. Pharynx without erythema or exudate. Uvula midline. Airway patent. Tongue does not deviate. NECK: Supple without nuchal rigidity. Cervical spine is nontender. Full range of motion of the neck without tenderness. HEART: Regular rate and rhythm without murmurs gallops or rubs. LUNGS: Clear to auscultation bilaterally without wheezes, rales or rhonchi. No retractions or accessory muscle use. CHEST: No chest wall tenderness. ABDOMEN: Positive bowel sounds x 4. Normal tympanic percussion. Soft, nontender, without masses or organomegaly. No guarding or rebound tenderness. MUSCULOSKELETAL: No tenderness of the thoracic or lumbar spine. No tenderness with pelvic rocking. She is tender to palpation over the anterior and inferior aspect of the right knee. Full range of motion of the right knee, but with increased pain. No obvious ligamentous instability. Full range of motion without tenderness to palpation in all remaining extremities. Peripheral pulses 2+ and equal in the bilateral upper and lower extremities. NEURO: Patient was alert and oriented to person place and time, but sometimes seemed a little confused about questions the first time they were asked, but then understood the second time. However, as the patient was in the ER longer, her mental status continue to improve. Normal sensation to light and sharp touch. DIFFERENTIAL DIAGNOSIS: Differential diagnosis includes cardiac arrhythmia, NE, vasovagal syndrome, aortic stenosis, pulmonary stenosis, hypertrophic cardiomyopathy, mitral valve prolapse, prolonged QT syndrome, sick sinus syndrome, drug toxicity, tension pneumothorax, cardiopulmonary syncope, pulmonary vascular disease, basilar artery insufficiency, subclavian steal syndrome, migraine, carotid sinus syndrome, orthostatic hypotension, dehydration, hyperventilation, psychiatric causes, or others. ED COURSE AND MEDICAL DECISION MAKING: HISTORY FROM INDEPENDENT HISTORIAN: Additional history was obtained from the patient's father and son. MONITOR: Continuous cafeteria monitor: Order was placed for continuous cafeteria monitor. Patient was placed on the cafeteria monitor and continuous pulse ox. Patient was noted to be in normal sinus rhythm at an initial rate of 80 bpm per my interpretation. EKG: EKG was interpreted by myself as normal sinus rhythm with sinus arrhythmia at 73 bpm with a new right bundle branch block. No acute ST or T wave changes. MEDICATIONS GIVEN: 1 L normal saline solution bolus followed by maintenance IV fluids. Tylenol 1000 mg IV. Cefepime 2 g IV. INTERPRETATION OF LABS: I interpreted the labs with full lab results as below in the lab section of this note. White blood cell count elevated at 25.41. Hemoglobin normal at 13.5. Platelet count normal at 229. INR is supratherapeutic at 4.2. Sodium low at 134, potassium low at 3.0. Creatinine elevated 1.26 with a normal BUN of 18. Glucose 109 and AST 66. CMP otherwise normal. Magnesium normal. High-sensitivity troponin x 2 were normal. CPK elevated at 1208. Lactate normal. TSH elevated at 9.512. Free T4 normal at 1.16. Urinalysis does not appear infected, but urine culture is pending. Blood cultures are pending. Respiratory bio fire was negative. INTERPRETATION OF IMAGING: Imaging studies were interpreted by myself and read by radiology as per the imaging section of this note. Chest x-ray negative for acute cardiopulmonary etiology. X-rays of the right knee negative for acute fracture, dislocation, or significant joint effusion. CT scans of the head and cervical spine without contrast were negative for acute intracranial abnormality, fracture, or subluxation. CTA of the chest was negative for PE, obvious pneumonia, or other acute abnormalities. CT scan of the abdomen and pelvis with IV contrast was negative for acute abnormalities. CONSULTATIONS: On-call hospitalist MDM SUMMARY: The patient was seen during a time of extreme volume and extreme acuity. Nursing triage protocols were initiated with IV lock, labs, and/or imaging studies conducted by protocol in the triage area. The patient was examined by myself once they were taken back to an exam room. The patient had multiple syncopal episodes this evening with an episode of incontinence of her stool as well. The patient's states that this is abnormal for her, but she sometimes gets like this when she has UTI. Urinalysis was not consistent with an obvious UTI, but culture pending. White blood cell count elevated at 25.41, but no obvious source of infection at this time. Blood cultures are pending. Lactate was normal. The patient has been afebrile. CPK was elevated at 1208 which might be secondary to the amount of time the patient was on the floor after her first episode. EKG showed a new right bundle branch block, but otherwise without acute abnormalities. High-sensitivity troponin x 2 were normal. TSH level is elevated and her thyroid medications will need to be adjusted. CT scans of the head, cervical spine, CTA of the chest, and CT of the abdomen pelvis were negative for acute abnormalities. Chest x-ray and x-ray of the right knee was negative for acute abnormality. Remainder of the workup as above. The patient was given IV fluids followed by maintenance fluids. She was given Tylenol 1000 mg IV with improvement of her pain. After discussion with the hospital pharmacist in regards to the patient's allergies and previous medications that she has received, it was felt cefepime 2 g IV would be appropriate. I had a meaningful discussion about this patient with Dr. Hua who agrees with my assessment and the treatment plan. We feel the patient requires admission for further evaluation and treatment. There is concern for possible endocarditis or other cardiac etiology due to her history of mechanical aortic valve, leukocytosis, and syncopal episodes. The patient may also require an additional neuroimaging for further evaluation. Please refer to the on-call hospitalist's dictation for further details. The patient's care was transferred in stable condition. DIAGNOSIS: Syncope with fall Leukocytosis Elevated CPK Past Med/Surg History Medical History Benzodiazepine overdose patient thought she had taken lorazepam and found that she didnot take it. it was confirmed with blood work Colon polyps Depression Endometriosis GERD (gastroesophageal reflux disease) Glomerulonephritis Graves disease Hypertension Hypothyroidism Osteoarthritis Paroxysmal A-fib happened with valve replacement, she was in normal sinus when discharged form hospital Surgical History Aortic valve replaced (09/2014) September 2014, [facility], mitral and aortic valve replacements with [place] mechanical valve H/O colonoscopy (~02/25/12) H/O mitral valve replacement (09/2014) aortic and mitral valve replaced simultaneously, [facility], [place] mechanical valve History of bunionectomy of left great toe History of tubal ligation Family History Grandfather Myocardial infarction Denies family history of Ovarian cancer Prostate cancer Breast cancer Colorectal cancer Social History Smoking Status: Former smoker Tobacco Type: Cigarettes Age Started Using Tobacco: 13; Age Quit Using Tobacco: 60; packs per day: 1; Cigarettes Per Day: 20; Second Hand Exposure: No; Do You Dip or Chew Tobacco: No; Hx Alcohol Use: Yes Alcohol type: wine Alcohol Intake Frequency Comment: 2 beers/day Hx Substance Use: No Preferred Language: Yakut Communication Ability: Effective Visual Impairment: No Limitations Hearing Ability: Normal Service Rig Operator Required: No Beliefs That Will Affect Care: None marital status: Current Living Situation: Spouse current occupational status: employed 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[employer], 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 Feels Safe at Home: Yes Physical Activity Frequency: 1-2 Times per Week Assistive Devices: None Allergies Allergies Allergy/AdvReac Type Severity Reaction Status Date / Time ciprofloxacin [From Cipro] Allergy Mild drug Verified 05/04/21 10:26 interaction with lexapro benzocaine Allergy Unknown UNKNOWN Verified 05/04/21 10:26 NSAIDS (Non-Steroidal Allergy Unknown NEEDS TO Verified 05/04/21 10:26 Anti-Inflamma AVOID DUE TO GLOMERULONEPRITIS ceftriaxone AdvReac Intermediate hallucinati Verified 05/04/21 10:26 ons Home Meds Home Medications Medication Instructions Recorded Confirmed multivitamin (Daily Multi-Vitamin 1 tab PO DAILY 09/01/19 03/11/21 tablet) cholecalciferol (vitamin D3) 25 25 mcg PO QAM 11/10/20 05/04/21 mcg (1,000 unit) capsule (Vitamin D3) Tumeric 500 mg PO QAM 03/11/21 05/04/21 ascorbic acid (vitamin C) 500 mg 500 mg PO QAM 03/11/21 05/04/21 tablet methylsulfonylmethane 500 mg 500 mg PO QAM 03/11/21 05/04/21 capsule multivitamin 1 tab PO QAM 03/11/21 03/11/21 Previous Rx's Medication Instructions Recorded diclofenac sodium 1 % topical gel 2 gm topical QID #100 grams 04/07/20 cyclobenzaprine 10 mg tablet 10 mg PO TID PRN muscle spasm #30 10/05/20 tabs lorazepam 0.5 mg tablet 0.5 mg PO DAILY PRN anxiety #30 12/25/20 tabs amlodipine 2.5 mg tablet 2.5 mg PO QAM #90 tabs 02/23/21 levothyroxine 112 mcg tablet 112 mcg PO QAM #90 tabs 03/05/21 omeprazole 20 mg capsule,delayed 20 mg PO HS #90 caps 04/30/21 release trazodone 50 mg tablet 50 mg PO HS #30 tabs 06/08/21 escitalopram oxalate 20 mg tablet 20 mg PO QAM #30 tabs 08/15/21 metoprolol tartrate 50 mg tablet 50 mg PO BID #60 tabs 08/15/21 warfarin 5 mg tablet 5 mg PO UD #90 tabs 06/10/22 Results & Data (ED) Vital Signs Vital Signs - 24 hr 01/04/24 01:25 01/04/24 01:25 01/04/24 01:25 Temperature 36.4 C L Temperature Source Oral Pulse Rate 73 Pulse Rate [Apical] 73 Pulse Rate from SpO2 Sensor Pulse Rhythm Regular Pulse Rhythm [Apical] Regular Pulse Strength Normal Pulse Strength [Apical] Normal Respiratory Rate 18 16 Respiratory Effort / Characteristics Non-Labored Non-Labored Respiratory Depth Normal Normal Blood Pressure 119/72 Blood Pressure [Left Arm] 119/72 Blood Pressure Mean 87 Blood Pressure Mean [Left Arm] 87 Pulse Oximetry 97 97 97 Oxygen Delivery Method Room Air Room Air Room Air Sepsis Recent Fever Within 48 Hours No Sepsis New/Unexplained Change in Mental Status No Sepsis Action Taken by Nursing No Action Required 01/04/24 01:29 01/04/24 01:30 01/04/24 02:00 Temperature Temperature Source Pulse Rate 76 80 79 Pulse Rate [Apical] Pulse Rate from SpO2 Sensor 82 79 Pulse Rhythm Pulse Rhythm [Apical] Pulse Strength Pulse Strength [Apical] Respiratory Rate 17 15 Respiratory Effort / Characteristics Respiratory Depth Blood Pressure 110/58 L 112/64 Blood Pressure [Left Arm] Blood Pressure Mean 75 80 Blood Pressure Mean [Left Arm] Pulse Oximetry 97 98 Oxygen Delivery Method Sepsis Recent Fever Within 48 Hours Sepsis New/Unexplained Change in Mental Status Sepsis Action Taken by Nursing 01/04/24 02:35 01/04/24 03:00 01/04/24 03:30 Temperature Temperature Source Pulse Rate 80 74 80 Pulse Rate [Apical] Pulse Rate from SpO2 Sensor 77 75 78 Pulse Rhythm Pulse Rhythm [Apical] Pulse Strength Pulse Strength [Apical] Respiratory Rate 20 15 17 Respiratory Effort / Characteristics Respiratory Depth Blood Pressure 114/70 103/64 99/73 L Blood Pressure [Left Arm] Blood Pressure Mean 84 77 81 Blood Pressure Mean [Left Arm] Pulse Oximetry 97 96 96 Oxygen Delivery Method Sepsis Recent Fever Within 48 Hours Sepsis New/Unexplained Change in Mental Status Sepsis Action Taken by Nursing 01/04/24 04:00 01/04/24 04:30 01/04/24 05:28 Temperature Temperature Source Pulse Rate 83 80 75 Pulse Rate [Apical] Pulse Rate from SpO2 Sensor 78 78 Pulse Rhythm Pulse Rhythm [Apical] Pulse Strength Pulse Strength [Apical] Respiratory Rate 22 29 H Respiratory Effort / Characteristics Respiratory Depth Blood Pressure 98/64 L 111/70 Blood Pressure [Left Arm] Blood Pressure Mean 75 83 Blood Pressure Mean [Left Arm] Pulse Oximetry 96 98 Oxygen Delivery Method Sepsis Recent Fever Within 48 Hours Sepsis New/Unexplained Change in Mental Status Sepsis Action Taken by Nursing 01/04/24 05:30 01/04/24 06:00 Temperature Temperature Source Pulse Rate 89 72 Pulse Rate [Apical] Pulse Rate from SpO2 Sensor 88 73 Pulse Rhythm Pulse Rhythm [Apical] Pulse Strength Pulse Strength [Apical] Respiratory Rate 16 17 Respiratory Effort / Characteristics Respiratory Depth Blood Pressure 132/64 119/65 Blood Pressure [Left Arm] Blood Pressure Mean 86 83 Blood Pressure Mean [Left Arm] Pulse Oximetry 98 94 Oxygen Delivery Method Sepsis Recent Fever Within 48 Hours Sepsis New/Unexplained Change in Mental Status Sepsis Action Taken by Nursing Laboratory Data 01/04/24 Unknown 01/04/24 Unknown Lab Results 01/04/24 01/04/24 01/04/24 Range/Units 04:10 04:17 04:35 WBC (4.8-10.8) K/ul RBC (4.20-5.40) M/uL Hgb (12.0-16.0) g/dl Hct (37.0-47.0) % MCV (80.0-100.0) fL MCH (25.0-34.0) pg MCHC (32.0-36.0) g/dL RDW Std Deviation (36.4-46.3) fL RDW Coeff of Barbara (11.5-14.5) % Plt Count (130-400) K/uL MPV (9.4-12.4) fL Immature Gran % (Auto) % Neut % (Auto) % Lymph % (Auto) % [place] % (Auto) % Eos % (Auto) % Baso % (Auto) % Neut # (Auto) (1.40-6.50) K/uL Lymph # (Auto) (1.20-3.40) K/uL [place] # (Auto) (0.11-0.59) K/uL Eos # (Auto) (0.00-0.50) K/uL Baso # (Auto) (0.00-0.20) K/uL Immature Gran # (Auto) (0.01-0.20) K/uL PT (9.0-12.0) Seconds INR (0.9-1.1) APTT (21-31) Seconds PTT Ratio Sodium (136-145) mmol/L Potassium (3.5-5.1) mmol/L Chloride (98-107) mmol/L Carbon Dioxide (21-32) mmol/L Anion Gap (3-11) BUN (6-23) mg/dl Creatinine (0.6-1.2) mg/dl Est Cr Clr Drug Dosing ml/min Est GFR ( Amer) ml/min Est GFR (Non-Af Amer) ml/min BUN/Creatinine Ratio (10-20) Glucose (70-99(Fasting)) mg/dl Lactate 0.7 (0.4-2.0) mmol/L Calcium (8.6-10.3) mg/dl Magnesium (1.7-2.4) mg/dl Total Bilirubin (0.2-1.0) mg/dl AST (13-39) U/L ALT (7-52) U/L Alkaline Phosphatase (34-104) U/L Total Creatine Kinase (26-192) U/L Troponin I High Sens 14.0 (0-14) pg/ml Total Protein (6.0-8.3) gm/dl Albumin (3.4-5.0) gm/dl Globulin (2.5-4.0) gm/dl Albumin/Globulin Ratio (0.9-2) TSH (0.300-4.500) uIu/ml Free T4 (0.61-1.60) ng/dl Urine Color Dark Yellow Urine Appearance Cloudy A (Clear) Urine pH 5.0 (4.5-7.5) Ur Specific [place] 1.033 H (1.000-1.030) Urine Protein 1+ H (Negative) Urine Glucose (UA) Negative (Negative) Urine Ketones 1+ H (Negative) Urine Blood Trace H (Negative) Urine Nitrite Negative (Negative) Urine Bilirubin 1+ H (Negative) Urine Urobilinogen Negative (Negative) Ur Leukocyte Esterase 2+ H (Negative) Urine WBC (Auto) 0-5 (0-5) /hpf Urine RBC (Auto) 11-20 H (0-2) /hpf U Hyaline Cast (Auto) >20 H (0-2) /lpf U Epithel Cells (Auto) 3-5 H (0-2) /hpf Urine Bacteria (Auto) None Seen (None Seen) Urine Mucus Present A (None Prsent) Adenovirus (PCR) Not Detected (NotDetected) B. pertussis DNA (PCR) Not Detected (NotDetected) B.parapertussis DNA PCR Not Detected (NotDetected) C. pneumoniae DNA (PCR) Not Detected (NotDetected) Coronavirus OC43 (PCR) Not Detected (NotDetected) Coronavirus HKU1 (PCR) Not Detected (NotDetected) Coronavirus 229E (PCR) Not Detected (NotDetected) SARS-CoV-2 (PCR) Not Detected (NotDetected) Coronavirus NL63 (PCR) Not Detected (NotDetected) Human Metapneumovir PCR Not Detected (NotDetected) Influenza Type A (PCR) Not Detected (NotDetected) Influenza Type B (PCR) Not Detected (NotDetected) M. pneumoniae (PCR) Not Detected (NotDetected) Parainfluenza 1 (PCR) Not Detected (NotDetected) Parainfluenza 2 (PCR) Not Detected (NotDetected) Parainfluenza 3 (PCR) Not Detected (NotDetected) Parainfluenza 4 (PCR) Not Detected (NotDetected) RSV (PCR) Not Detected (NotDetected) Entero/Rhino (PCR) Not Detected (NotDetected) 01/04/24 Range/Units Unknown WBC 25.41 H (4.8-10.8) K/ul RBC 4.61 (4.20-5.40) M/uL Hgb 13.5 (12.0-16.0) g/dl Hct 41.1 (37.0-47.0) % MCV 89.2 (80.0-100.0) fL MCH 29.3 (25.0-34.0) pg MCHC 32.8 (32.0-36.0) g/dL RDW Std Deviation 43.7 (36.4-46.3) fL RDW Coeff of Barbara 13.6 (11.5-14.5) % Plt Count 229 (130-400) K/uL MPV 12.3 (9.4-12.4) fL Immature Gran % (Auto) 1.0 % Neut % (Auto) 76.8 % Lymph % (Auto) 15.5 % [place] % (Auto) 5.6 % Eos % (Auto) 0.7 % Baso % (Auto) 0.4 % Neut # (Auto) 19.52 H (1.40-6.50) K/uL Lymph # (Auto) 3.94 H (1.20-3.40) K/uL [place] # (Auto) 1.43 H (0.11-0.59) K/uL Eos # (Auto) 0.18 (0.00-0.50) K/uL Baso # (Auto) 0.09 (0.00-0.20) K/uL Immature Gran # (Auto) 0.25 H (0.01-0.20) K/uL PT 42.4 H (9.0-12.0) Seconds INR 4.2 H (0.9-1.1) APTT 39 H (21-31) Seconds PTT Ratio 1.4 Sodium 134 L (136-145) mmol/L Potassium 3.0 L (3.5-5.1) mmol/L Chloride 99 (98-107) mmol/L Carbon Dioxide 28 (21-32) mmol/L Anion Gap 7 (3-11) BUN 18 (6-23) mg/dl Creatinine 1.26 H (0.6-1.2) mg/dl Est Cr Clr Drug Dosing 47.7 ml/min Est GFR ( Amer) 52.9 ml/min Est GFR (Non-Af Amer) 45.6 ml/min BUN/Creatinine Ratio 14.3 (10-20) Glucose 109 H (70-99(Fasting)) mg/dl Lactate (0.4-2.0) mmol/L Calcium 9.7 (8.6-10.3) mg/dl Magnesium 2.0 (1.7-2.4) mg/dl Total Bilirubin 0.7 (0.2-1.0) mg/dl AST 66 H (13-39) U/L ALT 49 (7-52) U/L Alkaline Phosphatase 73 (34-104) U/L Total Creatine Kinase 1208 H (26-192) U/L Troponin I High Sens 13.5 (0-14) pg/ml Total Protein 6.9 (6.0-8.3) gm/dl Albumin 4.1 (3.4-5.0) gm/dl Globulin 2.8 (2.5-4.0) gm/dl Albumin/Globulin Ratio 1.5 (0.9-2) TSH 9.512 H (0.300-4.500) uIu/ml Free T4 1.16 (0.61-1.60) ng/dl Urine Color Urine Appearance (Clear) Urine pH (4.5-7.5) Ur Specific [place] (1.000-1.030) Urine Protein (Negative) Urine Glucose (UA) (Negative) Urine Ketones (Negative) Urine Blood (Negative) Urine Nitrite (Negative) Urine Bilirubin (Negative) Urine Urobilinogen (Negative) Ur Leukocyte Esterase (Negative) Urine WBC (Auto) (0-5) /hpf Urine RBC (Auto) (0-2) /hpf U Hyaline Cast (Auto) (0-2) /lpf U Epithel Cells (Auto) (0-2) /hpf Urine Bacteria (Auto) (None Seen) Urine Mucus (None Prsent) Adenovirus (PCR) (NotDetected) B. pertussis DNA (PCR) (NotDetected) B.parapertussis DNA PCR (NotDetected) C. pneumoniae DNA (PCR) (NotDetected) Coronavirus OC43 (PCR) (NotDetected) Coronavirus HKU1 (PCR) (NotDetected) Coronavirus 229E (PCR) (NotDetected) SARS-CoV-2 (PCR) (NotDetected) Coronavirus NL63 (PCR) (NotDetected) Human Metapneumovir PCR (NotDetected) Influenza Type A (PCR) (NotDetected) Influenza Type B (PCR) (NotDetected) M. pneumoniae (PCR) (NotDetected) Parainfluenza 1 (PCR) (NotDetected) Parainfluenza 2 (PCR) (NotDetected) Parainfluenza 3 (PCR) (NotDetected) Parainfluenza 4 (PCR) (NotDetected) RSV (PCR) (NotDetected) Entero/Rhino (PCR) (NotDetected) Administered Medications Sodium Chloride (Nss) 1,000 mls @ 125 mls/hr IV .Q8H ALEX Stop: 02/03/24 06:29 Last Admin: 01/04/24 06:41 Dose: 125 mls/hr Documented By: HB Discontinued Medications Sodium Chloride (Nss) 1,000 mls @ 999 mls/hr IV .Q1H1M ONE Stop: 01/04/24 04:43 Last Infusion: 01/04/24 06:00 Dose: Infused Documented By: Admin: 01/04/24 04:34 Dose: 999 mls/hr Documented By: HB Acetaminophen (Ofirmev) 1,000 mg in 100 mls @ 400 mls/hr IV NOW STA Stop: 01/04/24 03:58 Last Infusion: 01/04/24 04:50 Dose: Infused Documented By: Admin: 01/04/24 04:34 Dose: 400 mls/hr Documented By: HB Cefepime HCl (Maxipime) 2,000 mg in 20 mls @ 5 mls/min IV NOW STA; Protocol Stop: 01/04/24 06:31 Last Admin: 01/04/24 07:14 Dose: 5 mls/min Documented By: JOSE ALFREDO Ioversol (Optiray 320 125ml) 117 ml IV ONCE ONE Stop: 01/04/24 05:11 Last Admin: 01/04/24 05:10 Dose: 117 ml Documented By: PLW Imaging Data Radiologist's Impression: Cervical Spine CT 01/04/24 01:40 Exam(s): CT C SPINE EXAM: CT Cervical Spine Without Intravenous Contrast CLINICAL HISTORY: Reason for exam: syncope, fall on thinners. TECHNIQUE: Axial computed tomography images of the cervical spine without intravenous contrast. CTDI is 23.06 mGy and DLP is 452.87 mGy-cm. Automated exposure control was utilized for the study. A dose lowering technique was utilized adhering to the principles of ALARA. COMPARISON: No relevant prior studies available. FINDINGS: The vertebral body heights are maintained. The craniocervical junction is intact. The atlanto-dens interval is maintained. The dens is intact. There is no spondylolisthesis. Multilevel cervical spondylosis and degenerative disc disease. Straightening of the cervical lordosis. The unenhanced neck soft tissues are grossly unremarkable. The visualized lung apices are grossly clear. IMPRESSION: No acute fracture or subluxation of the cervical spine. Electronically signed by: Faisal Joy MD 01/04/24 02:14 AM Chest X-Ray 01/04/24 01:40 XR chest 1V portable CLINICAL HISTORY: Syncope. COMPARISON STUDY: Chest radiograph September 01, 2019. FINDINGS: There are median sternotomy wires and prosthetic aortic and mitral valves. Lung volumes are normal. Lungs are clear. There is no pneumothorax or pleural effusion. Cardiac size is stable. Mediastinal contours are normal. There is no evidence for pulmonary edema. IMPRESSION: No acute cardiopulmonary findings. ACT 112: Negative or not required by law. Electronically signed by: Mak Fernandez M.D. 01/04/2024 7:[address] 01/04/24 01:40 Exam(s): CT HEAD Without Contrast EXAM: CT Head Without Intravenous Contrast CLINICAL HISTORY: Reason for exam: syncope, fall on thinners. TECHNIQUE: Axial computed tomography images of the head/brain without intravenous contrast. CTDI is 36.55 mGy and DLP is 624.41 mGy-cm. Automated exposure control was utilized for the study. A dose lowering technique was utilized adhering to the principles of ALARA. COMPARISON: No relevant prior studies available. FINDINGS: No acute intracranial hemorrhage. No midline shift or mass effect. The territorial burroughs-white matter differentiation is maintained throughout. The ventricles and sulci are commensurate with age. The visualized orbits appear grossly unremarkable. The calvarium is intact. The visualized paranasal sinuses and mastoid air cells are grossly clear. IMPRESSION: No acute intracranial hemorrhage, midline shift, or mass effect. Electronically signed by: Faisal Joy MD 01/04/24 02:15 AM Abdomen/Pelvis CT 01/04/24 03:42 Exam(s): CT ABDOMEN + PELVIS With Contrast IV Amt: 117 ml opti 320 EXAM: CT Abdomen and Pelvis With Intravenous Contrast CLINICAL HISTORY: Reason for exam: Leukocytosis, abdominal pain, diarrhea. TECHNIQUE: Axial computed tomography images of the abdomen and pelvis with intravenous contrast. Automated exposure control was utilized for the study. A dose lowering technique was utilized adhering to the principles of ALARA. CONTRAST: Patient received 117 ml opti 320 of IV contrast COMPARISON: No relevant prior studies available. FINDINGS: Lung bases: Unremarkable. No mass. No consolidation. ABDOMEN: Liver: Fatty infiltration of the liver. Gallbladder and bile ducts: Unremarkable. No calcified stones. No ductal dilation. Pancreas: Unremarkable. No mass. No ductal dilation. Spleen: Multiple calcified granuloma seen in the spleen. Adrenals: Unremarkable. No mass. Kidneys and ureters: Unremarkable. No solid mass. No hydronephrosis. Stomach and bowel: Sigmoid colonic diverticulosis. No obstruction. No mucosal thickening. PELVIS: Appendix: Normal appendix. Bladder: Unremarkable. No mass. Reproductive: Unremarkable as visualized. ABDOMEN and PELVIS: Intraperitoneal space: Unremarkable. No free air. No significant fluid collection. Bones/joints: No acute fracture. No dislocation. Soft tissues: Unremarkable. Vasculature: Unremarkable. No abdominal aortic aneurysm. Lymph nodes: Unremarkable. No enlarged lymph nodes. IMPRESSION: No evidence of colitis or enteritis. Electronically signed by: Jason Vela MD 01/04/24 06:09 AM Chest CTA 01/04/24 03:42 Exam(s): CTA CHEST IV Amt: 117 ml opti 320 EXAM: CT Angiography Chest With Intravenous Contrast CLINICAL HISTORY: Reason for exam: syncope, leukocytosis, eval PE. TECHNIQUE: Axial computed tomographic angiography images of the chest with intravenous contrast. Automated exposure control was utilized for the study. A dose lowering technique was utilized adhering to the principles of ALARA. MIP reconstructed images were created and reviewed. COMPARISON: No relevant prior studies available. FINDINGS: Pulmonary arteries: Unremarkable. No pulmonary embolism. Aorta: Ascending aorta is ectatic, measuring 3.8 cm in diameter. No thoracic aortic aneurysm. Lungs: Unremarkable. No mass. No consolidation. Pleural space: Unremarkable. No significant effusion. No pneumothorax. Heart: Unremarkable. No cardiomegaly. No significant pericardial effusion. No evidence of RV dysfunction. Bones/joints: No acute fracture. No dislocation. Soft tissues: Unremarkable. Lymph nodes: Unremarkable. No enlarged lymph nodes. IMPRESSION: 1. No evidence of acute pulmonary embolism. 2. No definite evidence of pneumonia. Electronically signed by: Jason Vela MD 01/04/24 06:11 AM Knee X-Ray 01/04/24 03:44 XR knee RT 3V CLINICAL HISTORY: Trauma COMPARISON: None FINDINGS: Alignment of the right knee is anatomic. There is no acute fracture. No joint effusion is present. Joint spaces are preserved. IMPRESSION: No fractures within the right knee. No right knee joint effusion. ACT 112: Negative or not required by law. Electronically signed by: Mak Fernandez M.D. 01/04/2024 6:49 AM Discharge Plan Visit Data Chief Complaint: Syncope Stated Complaint: Multiple Syncopal Episodes, Head Injury ED Provider: Kailey Hua ED Midlevel Provider: Meenakshi Hannon Discharge Problem: Syncope and collapse, Leukocytosis, Elevated CPK Patient Disposition: Admitted As Inpatient Condition: Good Forms Stand Alone Forms: [facility] Prescriptions Prescriptions: No Action cyclobenzaprine 10 mg tablet 10 mg PO TID PRN (Reason: muscle spasm) Qty: 30 0RF lorazepam 0.5 mg tablet 0.5 mg PO DAILY PRN (Reason: anxiety) Qty: 30 1RF amlodipine 2.5 mg tablet 2.5 mg PO QAM Qty: 90 3RF levothyroxine 112 mcg tablet 112 mcg PO QAM Qty: 90 3RF omeprazole 20 mg capsule,delayed release(DR/EC) 20 mg PO HS Qty: 90 3RF trazodone 50 mg tablet 50 mg PO HS Qty: 30 5RF escitalopram oxalate 20 mg tablet 20 mg PO QAM Qty: 30 5RF metoprolol tartrate 50 mg tablet 50 mg PO BID Qty: 60 5RF warfarin 5 mg tablet 5 mg PO UD Qty: 90 3RF Protocol: Dose Management Condition: Friday Dose/Route: 10 mg Instruction: 2 x 5 mg tablets Condition: Friday Dose/Route: 7.5 mg Instruction: 1.5 x 5 mg tablets Condition: Friday Dose/Route: 10 mg Instruction: 2 x 5 mg tablets Condition: Friday Dose/Route: 7.5 mg Instruction: 1.5 x 5 mg tablets Condition: Dose/Route: 10 mg Instruction: 2 x 5 mg tablets Condition: Friday Dose/Route: 10 mg Instruction: 2 x 5 mg tablets Condition: Friday Dose/Route: 7.5 mg Instruction: 1.5 x 5 mg tablets Protocol Text: Adjustment Start Date: Friday05/04/21 INR Value: 2.5 INR Date: 05/04/21 Recheck Date: 05/18/21 Rx Instructions: 7.5 mg Fri,Fri,Fri 10mg Sun,,, Fri multivitamin [Daily Multi-Vitamin] tablet 1 tab PO DAILY diclofenac sodium 1 % gel 2 gm TOP QID Qty: 100 5RF Rx Instructions: apply to feet cholecalciferol (vitamin D3) [Vitamin D3] 25 mcg (1,000 unit) Capsule 25 mcg PO QAM multivitamin [Daily Multivitamin] Tablet 1 tab PO QAM ascorbic acid (vitamin C) 500 mg Tablet 500 mg PO QAM methylsulfonylmethane 500 mg Capsule 500 mg PO QAM Rx Instructions: Botanic Choice MSM 500mg Tumeric 500 mg PO QAM Referrals Referrals: Bhavna Obando DO [Primary Care Provider] - Discharge Problem: Leukocytosis Qualifiers: Leukocytosis type: unspecified Qualified Code(s): D72.829 - Elevated white blood cell count, unspecified
[2024-01-04 03:29] LABS: T4 Free Thyroxine 1.16 ng/dl (0.61-1.60)
[2024-01-04] MEDS: ACETAMINOPHEN 1,000 MG/100 ML VIAL IV STA (04:34)
[2024-01-04] MEDS: SODIUM CHLORIDE 0.9% 1,000 ML IV ONE (04:34)
[2024-01-04 04:42] LABS: Appearance Urine Cloudy (Clear); Bacteria Urine Automated None Seen (None Seen); Bilirubin Urine 1+ (Negative); Blood Urine Trace (Negative); Cast Urine Automated >20 /lpf (0-2); Color Urine Dark Yellow; Glucose Urine UA Negative (Negative); Ketones Urine 1+ (Negative); Leukocyte Esterase Urine 2+ (Negative); Mucus Urine Present (None Prsent); Nitrite Urine Negative (Negative); Protein Urine 1+ (Negative); Specific Gravity Urine 1.033 (1.000-1.030); Urobilinogen Urine Negative (Negative); WBC Urine Automated 0-5 /hpf (0-5)
[2024-01-04] MEDS: OPTIRAY 320 125ml IV ONE (05:10)
[2024-01-04 05:31] LABS: Adenovirus PCR Not Detected (NotDetected); Bordetella parapertussis PCR Not Detected (NotDetected); Bordetella pertussis PCR Not Detected (NotDetected); Chlamydia pneumoniae PCR Not Detected (NotDetected); Coronavirus 229E PCR Not Detected (NotDetected); Coronavirus CoV-2 (COVID19)PCR Not Detected (NotDetected); Coronavirus HKU1 PCR Not Detected (NotDetected); Coronavirus NL63 PCR Not Detected (NotDetected); Coronavirus OC43PCR Not Detected (NotDetected); Human Metapneumovirus PCR Not Detected (NotDetected); Influenza A PCR Not Detected (NotDetected); Influenza B PCR Not Detected (NotDetected); Mycoplasma pneumoniae PCR Not Detected (NotDetected); Parainfluenza Virus 1 PCR Not Detected (NotDetected); Parainfluenza Virus 2 PCR Not Detected (NotDetected); Parainfluenza Virus 3 PCR Not Detected (NotDetected); Parainfluenza Virus 4 PCR Not Detected (NotDetected); Respiratory Syncytial VirusPCR Not Detected (NotDetected); Rhinovirus/Enterovirus PCR Not Detected (NotDetected)
--- NOTE | 2024-01-04 06:10 | CT Scan Report ---
Exam(s): CT ABDOMEN + PELVIS With Contrast IV Amt: 117 ml opti 320 EXAM: CT Abdomen and Pelvis With Intravenous Contrast CLINICAL HISTORY: Reason for exam: Leukocytosis, abdominal pain, diarrhea. TECHNIQUE: Axial computed tomography images of the abdomen and pelvis with intravenous contrast. Automated exposure control was utilized for the study. A dose lowering technique was utilized adhering to the principles of ALARA. CONTRAST: Patient received 117 ml opti 320 of IV contrast COMPARISON: No relevant prior studies available. FINDINGS: Lung bases: Unremarkable. No mass. No consolidation. ABDOMEN: Liver: Fatty infiltration of the liver. Gallbladder and bile ducts: Unremarkable. No calcified stones. No ductal dilation. Pancreas: Unremarkable. No mass. No ductal dilation. Spleen: Multiple calcified granuloma seen in the spleen. Adrenals: Unremarkable. No mass. Kidneys and ureters: Unremarkable. No solid mass. No hydronephrosis. Stomach and bowel: Sigmoid colonic diverticulosis. No obstruction. No mucosal thickening. PELVIS: Appendix: Normal appendix. Bladder: Unremarkable. No mass. Reproductive: Unremarkable as visualized. ABDOMEN and PELVIS: Intraperitoneal space: Unremarkable. No free air. No significant fluid collection. Bones/joints: No acute fracture. No dislocation. Soft tissues: Unremarkable. Vasculature: Unremarkable. No abdominal aortic aneurysm. Lymph nodes: Unremarkable. No enlarged lymph nodes. IMPRESSION: No evidence of colitis or enteritis. Electronically signed by: Jason Vela MD 01/04/24 06:09 AM
--- NOTE | 2024-01-04 06:11 | CT Scan Report ---
Exam(s): CTA CHEST IV Amt: 117 ml opti 320 EXAM: CT Angiography Chest With Intravenous Contrast CLINICAL HISTORY: Reason for exam: syncope, leukocytosis, eval PE. TECHNIQUE: Axial computed tomographic angiography images of the chest with intravenous contrast. Automated exposure control was utilized for the study. A dose lowering technique was utilized adhering to the principles of ALARA. MIP reconstructed images were created and reviewed. COMPARISON: No relevant prior studies available. FINDINGS: Pulmonary arteries: Unremarkable. No pulmonary embolism. Aorta: Ascending aorta is ectatic, measuring 3.8 cm in diameter. No thoracic aortic aneurysm. Lungs: Unremarkable. No mass. No consolidation. Pleural space: Unremarkable. No significant effusion. No pneumothorax. Heart: Unremarkable. No cardiomegaly. No significant pericardial effusion. No evidence of RV dysfunction. Bones/joints: No acute fracture. No dislocation. Soft tissues: Unremarkable. Lymph nodes: Unremarkable. No enlarged lymph nodes. IMPRESSION: 1. No evidence of acute pulmonary embolism. 2. No definite evidence of pneumonia. Electronically signed by: Jason Vela MD 01/04/24 06:11 AM
[2024-01-04] MEDS: SODIUM CHLORIDE 0.9% 1,000 ML IV SCH (06:41)
--- NOTE | 2024-01-04 06:51 | XRay Report ---
XR knee RT 3V CLINICAL HISTORY: Trauma COMPARISON: None FINDINGS: Alignment of the right knee is anatomic. There is no acute fracture. No joint effusion is present. Joint spaces are preserved. IMPRESSION: No fractures within the right knee. No right knee joint effusion. ACT 112: Negative or not required by law. Electronically signed by: Mak Fernandez M.D. 01/04/2024 6:49 AM
--- NOTE | 2024-01-04 07:10 | XRay Report ---
XR chest 1V portable CLINICAL HISTORY: Syncope. COMPARISON STUDY: Chest radiograph September 01, 2019. FINDINGS: There are median sternotomy wires and prosthetic aortic and mitral valves. Lung volumes are normal. Lungs are clear. There is no pneumothorax or pleural effusion. Cardiac size is stable. Media stinal contours are normal. There is no evidence for pulmonary edema. IMPRESSION: No acute cardiopulmonary findings. ACT 112: Negative or not required by law. Electronically signed by: Mak Fernandez M.D. 01/04/2024 7:08 AM
[2024-01-04] MEDS: CEFEPIME 2,000 MG/20 ML VIAL IV STA (07:14)
[2024-01-04] MEDS: POTASSIUM CHLORIDE CRTAB 20 MEQ TABCR PO ONE ×2 (08:52→20:20)
[2024-01-04] MEDS: LEVOTHYROXINE SODIUM 112 MCG TABLET PO SCH ×2 (10:57→11:41)
[2024-01-04] MEDS: LORazepam 0.5 MG TAB PO PRN (11:16)
[2024-01-04] MEDS: METOPROLOL TARTRATE 50 MG TAB PO SCH (11:16)
[2024-01-04] MEDS: busPIRone 5 MG TAB PO SCH (11:17)
[2024-01-04] MEDS ORDERED: ONDANSETRON INJ 2 MG/ML 2 ML VIAL IV PRN (11:22)
[2024-01-04] MEDS ORDERED: POLYETHYLENE (MIRALAX) 17 GM PACK PO PRN (11:22)
[2024-01-04] MEDS: POTASSIUM CHLORIDE / WTR 10 MEQ/100 ML PLCT IV SCH (11:42)
--- NOTE | 2024-01-04 12:05 | Cardiology Consultation ---
Date of Consultation January 04, 2024 Assessment & Plan (1) Syncope and collapse: (2) Leukocytosis: (3) Elevated CPK: (4) Insomnia: (5) Anxiety: (6) Fatigue: (7) Paroxysmal A-fib: (8) Hypothyroidism: (9) Aortic valve replaced: (10) H/O mitral valve replacement: (11) Hyponatremia: (12) Hypokalemia: (13) Supratherapeutic INR: (14) TALI (acute kidney injury): (15) Right bundle branch block: Plan Impression: -Complex 63 year old female with syncope with collapse x2 . Associated with hypotension in the setting of infection. She had prodromal symptoms and electrolyte imbalance. Recently treated for a sinus infection. -Reports history of frequent falls with previous UTI's. -Hx elevated aortic valve velocities in 2021, but did not follow up due to insurance reasons. -Patient is also taking scripts at home that are not hers. Took Tramadol, Baclofen, Trazodone, Ativan, and Buspar prior to episodes. Patient has a history of mechanical MVR/AVR in [address] Arciniega at [facility]. -Psych consulted for insomnia and anxiety. Does not recall taking an extra dose of her Coumadin at home. Unclear ETOH intake. Plan: -Leukocytosis with no clear source of infection. Given her history of mechanical valve replacements she will need an echocardiogram to reassess her valves. -There was a concern for elevated aortic valve velocities in 2021. I am concerned for severe at this point. -Blood cultures show no growth to day. If positive may need to consider other imaging modalities to rule out bacteremia.UA did not show concern for UTI, but culture is pending. -Anticoagulated with Coumadin for mechanical valves and history of paroxysmal atrial fibrillation. INR supratherapeutic. Denies abnormal bleeding. -Ectopy noted on telemetry secondary to electrolyte imbalance. Continue to monitor on telemetry. -Keep K > 4.0 and Magnesium >2.0 -Agree with psych consult. Case discussed with Dr. Verma I spent a total of 65 minutes on the date of service in preparation, delivery, and documentation of the care provided to this patient, excluding any time spent in the performance of separately billed services. JAMES Paula Department of Cardiology, [facility] This chart was completed in part utilizing Speech Voice Recognition Software. Grammatical errors, random word insertions, pronoun errors, and incomplete sentences are an occasional consequence of this system due to software limitat ions, ambient noise, and hardware issues. Any formal questions or concerns about the content, text, or information contained within the body of this dictation should be directly addressed to the provider for clarification. Supervising Physician Co-Signing Physician Notes 63-year-old female with known history of rheumatic heart disease severe attic valve regurgitation and mitral stenosis underwent both valve replacements in [place] September 2015 mechanical aortic valve [place] 21 mm, mechanical mitral valve [place] 31 mm on Coumadin, anxiety, paroxysmal atrial fibrillation, hyperthyroidism Graves' disease presents with syncopal episodes Patient was recently diagnosed with a sinus infection was on antibiotics A ugmentin and steroid completed the course. Patient reports that she was feeling the dizzy and lightheaded she stood up and fell backwards heard a thump and helped her up. She stood up and was walking towards the bathroom when she had a second syncopal episode and fell forwards. Unresponsive for a few minutes also lost control of bowel . She was confused after that. In the emergency room was noted to be hypotensive. Patient has been receiving fluids. She is very emotional, crying is worried that her heart is infected. concerned that she has recurrent UTIs in the past and her symptoms would be very subtle. also reports that patient becomes very anxious confrontational and difficult to handle when she does not have enough sleep. Is requesting that she have sleep medication. On exam no evidence of volume overload mechanical mitral click heard, Echocardiogram shows normal left ventricular function mechanical aortic valve velocities are increased from prior suggestive of possible moderate to severe stenosis, normal mitral valve function Her white count is significantly elevated creatinine kinase is elevated Impression and plan Syncopal episode Mechanical aortic valve with elevated gradients Elevated WBC count Acute rhabdomyolysis with elevated CK Mechanical mitral valve with normal valve function Syncopal episode in the setting of hypotension , elevated white count and Acute kidney injury and also polypharmacy with sedating medications. Mechanical aortic valve with increased gradients suggestive of atleast moderate to borderline severe stenosus. if blood cultures are positive will need further workup to rule out valvular infection. Continue with Coumadin to keep INR more than 2.5 reduce rate of IV fluids .I have reviewed the advanced practitioner's documentation on the date of service referenced in note, and I agree with, and take responsibility for the plan of care. I spent a total of [30] minutes coordinating, documenting, and providing care for this patient excluding time spent in the performance of separately billed services or time spent by another provider. History of Present Illness Reason for Consultation: Syncope, Valvular Heart Disease Requesting Physician: Chilango Bond MD Attending Physician: Dr. Verma History of Present Illness Cardiac Problem List: 1. Rheumatic fever with rheumatic heart disease, severe aortic stenosis and severe mitral stenosis 2. August 04, 2015 diagnostic cardiac catheterization performed at [facility] demonstrated diffuse minor irregularities of the epicardial coronary arteries 3. October 02, 2015 aortic valve replacement ([address] [place] mechanical valve) and mitral valve replacement ([address] [place] mechanical valve) by Dr. Arciniega. 4. Postoperative course complicated by hyperthyroidism, paroxysmal atrial fibrillation. 5. Paroxysmal atrial fibrillation initially diagnosed in association with hyperthyroidism, Graves Disease 6. Preserved LV systolic function Presented to [facility] on 01/04/24 for evaluation of syncopal episodes. states he was asleep on the couch when he heard his fall backwards. He wanted to take her up to bed, but she insisted she had to go to the bathroom. On the way to the bathroom (to have a bowel movement), she passed out and fell forwards. Lost control of her bowels. Both times she hit her head. She was unconscious for about 1-3 minutes. When she came to she was confused. Prior to the events she felt lightheaded and dizzy. Her states that she did take her medications before bed that does make her sleepy, but this seems different. Her states that she was very unsteady on her feet and had trouble walking. She has an abrasion to the right knee. He states she is confrontational when she doesn't get any sleep. She has a history of frequent falls when diagnosed with UTIs in the past. She was recently started on Augmentin, prednisone, and Tessalon Perles for a sinus infection, but finished the antibiotics on 01/02/24 and the steroid taper prior to that. Patient states at somepoint she must have taken an extra dose of her Coumadin. In the ED her INR was above goal, TSH elevated with normal T4, Leukocytosis, hyponatremic 134, hypokalemia 3.0, CK 1208. Urine did not show concern for UTI, but sent for culture. CT chest, head, abdomen, and pelvis are negative for acute processes. Patient was last evaluated in the Cardiology office in 2021. Primarily followed with Michele Cooper PA-C. States she has an appointment for follow up in January. Reports being without insurance for a period of time. 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 States the other day she slipped and fell on thet wet floor and is now on workers compensation. Did not hit her head at that time. States there was not a caution wet sign. Denies tobacco use. Drinks beer, but does not quantify. Denies drug use. It should be noted that patient is taking Tramadol and Baclofen at home. These are not her prescriptions. Patient also taking Trazodone, Buspar, and Ativan. She took all of 5 these medications prior to falling. She is very anxious and tearful. Allergies Allergy/AdvReac Type Severity Reaction Status Date / Time ciprofloxacin [From Cipro] Allergy Mild drug Verified 05/04/21 10:26 interaction with lexapro benzocaine Allergy Unknown UNKNOWN Verified 05/04/21 10:26 NSAIDS (Non-Steroidal Allergy Unknown NEEDS TO Verified 05/04/21 10:26 Anti-Inflamma AVOID DUE TO GLOMERULONEPRITIS ceftriaxone AdvReac Intermediate hallucinati Verified 05/04/21 10:26 ons Home Medications Medication Instructions Recorded Confirmed Type multivitamin (Daily Multi-Vitamin 1 tab PO DAILY 09/01/19 01/04/24 History tablet) diclofenac sodium 1 % topical gel 2 gm topical QID #100 grams 04/07/20 01/04/24 Rx cholecalciferol (vitamin D3) 25 25 mcg PO QAM 11/10/20 01/04/24 History mcg (1,000 unit) capsule (Vitamin D3) amlodipine 2.5 mg tablet 2.5 mg PO QAM #90 tabs 02/23/21 01/04/24 Rx levothyroxine 112 mcg tablet 112 mcg PO QAM #90 tabs 03/05/21 01/04/24 Rx Tumeric 500 mg PO QAM 03/11/21 01/04/24 History ascorbic acid (vitamin C) 500 mg 500 mg PO QAM 03/11/21 01/04/24 History tablet multivitamin 1 tab PO QAM 03/11/21 01/04/24 History omeprazole 20 mg capsule,delayed 20 mg PO HS #90 caps 04/30/21 01/04/24 Rx release trazodone 50 mg tablet 50 mg PO HS #30 tabs 06/08/21 01/04/24 Rx metoprolol tartrate 50 mg tablet 50 mg PO BID #60 tabs 08/15/21 01/04/24 Rx warfarin 5 mg tablet 5 mg PO UD #90 tabs 06/10/22 01/04/24 Rx buspirone 10 mg tablet 10 mg PO BID 01/04/24 01/04/24 History Patient History Medical History Osteoarthritis GERD (gastroesophageal reflux disease) Depression Hypertension Colon polyps Graves disease Paroxysmal A-fib happened with valve replacement, she was in normal sinus when discharged form hospital Hypothyroidism Glomerulonephritis Endometriosis Benzodiazepine overdose patient thought she had taken lorazepam and found that she didnot take it. it was confirmed with blood work Surgical History History of bunionectomy of left great toe H/O colonoscopy (~02/25/12) History of tubal ligation H/O mitral valve replacement (09/2014) aortic and mitral valve replaced simultaneously, [facility], [place] mechanical valve Aortic valve replaced (09/2014) September 2014, [facility], mitral and aortic valve replacements with [place] mechanical valve Family History Grandfather Myocardial infarction Denies family history of Ovarian cancer Prostate cancer Breast cancer Colorectal cancer Social History Smoking Status: Former smoker Tobacco Type: Cigarettes Age Started Using Tobacco: 13; Age Quit Using Tobacco: 60; packs per day: 1; Cigarettes Per Day: 20; Second Hand Exposure: No; Do You Dip or Chew Tobacco: No; Hx Alcohol Use: Yes Alcohol type: beer Alcohol Intake Frequency Comment: 2 beers/day Hx Substance Use: No Preferred Language: Citizen Of [place] Communication Ability: Effective Visual Impairment: No Limitations Hearing Ability: Normal Senior Research Project Manager Required: No Beliefs That Will Affect Care: None marital status: Current Living Situation: Spouse Current Living Situation Comment: At home with spouse current occupational status: employed 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[employer], 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 Other Information That Helps Us Care for You: No Feels Safe at Home: Yes Safety Concerns: Feels Safe At This Time Physical Activity Frequency: 1-2 Times per Week Assistive Devices: None Review of Systems Review of Systems: All systems reviewed & are unremarkable except as noted in HPI & below Physical Exam Constitutional: WD/WN, vitals as above Respiratory: normal respiratory effort, lungs clear to auscultation normal respiratory effort; no respiratory distress Auscultation: lungs clear to auscultation bilaterally Cardiovascular: RRR, no murmur, no edema Rate/Rhythm: regular rate and regular rhythm Heart Sounds: + click Vessels: no JVD Extremities: normal capillary refill; no edema Neurologic: PERRL, EOMI, accommodation nl, no face palsy, no dysarthria Psychiatric: Orientation: alert and oriented x 3 Anxious, Tearful, Results & Data Vital Signs (Past 12 Hours) Vital Signs Temp Pulse Pulse Pulse Resp BP BP 01/04/24 11:52 76 01/04/24 10:53 36.6 C 81 16 125/82 01/04/24 10:48 01/04/24 06:00 72 17 119/65 01/04/24 05:30 89 16 132/64 01/04/24 05:28 75 01/04/24 04:30 80 29 H 111/70 01/04/24 04:00 83 22 98/64 L 01/04/24 03:30 80 17 99/73 L 01/04/24 03:00 74 15 103/64 01/04/24 02:35 80 20 114/70 01/04/24 02:00 79 15 112/64 01/04/24 01:30 80 17 110/58 L 01/04/24 01:29 76 01/04/24 01:25 73 16 119/72 01/04/24 01:25 01/04/24 01:25 36.4 C L 73 18 119/72 Pulse Ox O2 Del Method 01/04/24 11:52 01/04/24 10:53 97 Room Air 01/04/24 10:48 Room Air 01/04/24 06:00 94 01/04/24 05:30 98 01/04/24 05:28 01/04/24 04:30 98 01/04/24 04:00 96 01/04/24 03:30 96 01/04/24 03:00 96 01/04/24 02:35 97 01/04/24 02:00 98 01/04/24 01:30 97 01/04/24 01:29 01/04/24 01:25 97 Room Air 01/04/24 01:25 97 Room Air 01/04/24 01:25 97 Room Air Laboratory Results Cardiac Enzymes 01/04/24 01/04/24 Range/Units 04:17 Unknown AST 66 H (13-39) U/L Troponin I High Sens 14.0 13.5 (0-14) pg/ml Coagulation 01/04/24 Range/Units Unknown PT 42.4 H (9.0-12.0) Seconds APTT 39 H (21-31) Seconds CBC 01/04/24 Range/Units Unknown WBC 25.41 H (4.8-10.8) K/ul RBC 4.61 (4.20-5.40) M/uL Hgb 13.5 (12.0-16.0) g/dl Hct 41.1 (37.0-47.0) % Plt Count 229 (130-400) K/uL Neut # (Auto) 19.52 H (1.40-6.50) K/uL Lymph # (Auto) 3.94 H (1.20-3.40) K/uL Alexander # (Auto) 1.43 H (0.11-0.59) K/uL Eos # (Auto) 0.18 (0.00-0.50) K/uL Baso # (Auto) 0.09 (0.00-0.20) K/uL Comprehensive Metabolic Panel 01/04/24 Range/Units Unknown Sodium 134 L (136-145) mmol/L Potassium 3.0 L (3.5-5.1) mmol/L Chloride 99 (98-107) mmol/L Carbon Dioxide 28 (21-32) mmol/L BUN 18 (6-23) mg/dl Creatinine 1.26 H (0.6-1.2) mg/dl Glucose 109 H (70-99(Fasting)) mg/dl Calcium 9.7 (8.6-10.3) mg/dl AST 66 H (13-39) U/L ALT 49 (7-52) U/L Alkaline Phosphatase 73 (34-104) U/L Total Protein 6.9 (6.0-8.3) gm/dl Albumin 4.1 (3.4-5.0) gm/dl Intake and Output 01/03/24 01/04/24 01/04/24 22:59 06:59 14:59 Intake Total 1100 / 1100 Balance 1100 / 1100 Intake: IV 1100 / 1100 Acetaminophen 1,000 mg In 100 100 / 100 ml @ 400 mls/hr IV NOW STA Rx#: [id number] Sodium Chloride 0.9% 1,000 ml @ 1000 / 1000 999 mls/hr IV .Q1H1M ONE Rx#: [id number] Other: Weight 81 kg 83 kg Weight Measurement Method [facility] Weight 01/05/24 06:59 Weight 83 kg Diagnostic Findings Telemetry Reviewed: 01/04/24: NSR with PACs/PVCs. 78 bpm EKG 01/04/2024 NSR with SA 73 bpm RBBB Echo 07/08/22 The left ventricular cavity size is normal. The LV wall thickness is mildly increased (concentric). The right ventricular systolic function is normal as assessed by tricuspid annular plane systolic excursion (TAPSE) (normal >1.7cm). The left atrium is severely enlarged (>48 ml/m^2,). The right atrial size is normal. There is an aortic valve mechanical prosthesis present. The aortic valve prosthesis systolic gradients are are borderline elevated and are indeterminate for obstruction. There is a mitral valve mechanical prosthesis present. The mitral valve prosthesis systolic gradients are normal for this type prosthesis. There is no evidence of pulmonary hypertension. Ao V2 max: 331.5 cm/sec Ao mean P.3 mmHg KESHIA(I,D): 0.78 cm2 Cardiac Cath 08/04/2015 @ [facility] The coronary arteries have diffuse minor irregularities. The right atrial pressures measured were normal. Pulmonary hypertension is not present. Pulmonary saturation is normal. The pulmonary wedge pressure was normal. The cardiac output was normal. The left ventricular end diastolic pressure was normal. The mitral valve has probable moderate stenosis. The peak to peak gradient was around 10 mm Hg at two different occasions. This gives valve area of around 1.6 cm2. The aortic valve has severe stenosis. The peak to peak gradient was 21 and this give the valve area close to 1 cm2. (2) Leukocytosis Leukocytosis type: unspecified Qualified Code(s): D72.829 - Elevated white blood cell count, unspecified
[2024-01-04] MEDS: cefTRIAXone SODIUM 2,000 MG in DEXTROSE 5 % MINI-B 50 ML IV SCH (12:27)
[2024-01-04] MEDS: PIPER/TAZO 4.5g in D5W MINI-B 100 ML IV ONE (13:39)
--- NOTE | 2024-01-04 13:40 | History & Physical Report ---
Date of Service January 04, 2024 Assessment & Plan (1) Syncope and collapse: Plan: Syncope: --CT head:No acute intracranial hemorrhage, midline shift, or mass effect. --Neck CT:No acute fracture or subluxation of the cervical spine. Troponin negative Check orthostatic Monitor for arrhythmia Continue IV fluids Resting ECHO, Carotid Ultrasound, EEG Fall precautions Cardiology consult Acute Rhabdomyolysis Secondary to Fall/trauma Continue IV fluids Monitor CK Hypokalemia Hyponatremia Replete electrolytes as needed Monitor Leukocytosis Unclear source of infection CT chest, abdomen no signs of infection Bio fire negative Blood culture pending Urine culture pending Empirically on Zosyn Acute kidney injury Monitor renal function Avoid nephrotoxic's agents as able Continue IV fluids Supratherapeutic INR No acute bleeding issues Resume Coumadin as able Monitor INR Paroxysmal atrial fibrillation Continue metoprolol Monitor INR Resume Coumadin as able Severe aortic stenosis Severe mitral stenosis H/O rheumatic heart disease 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) Continue home medications Monitor volume status Cardiology consulted Abnormal thyroid function test H/O Graves' disease H/O hypothyroidism Elevated TSH, normal free T4 Continue levothyroxine Repeat thyroid function test as able GERD Continue PPI Mood disorder Insomnia Continue home medications DVT Px: SCDs INR supratherapeutic Admission and Anticipated Discharge Date Admission Date: January 04, 2024 History of Present Illness Chief Complaint: Syncope Primary Care Provider: Bhavna Obando DO Patient is a 63-year-old female with history of paroxysmal atrial fibrillation, endometriosis, Graves' disease, hypothyroidism, valvular heart disease S/P aortic valve replacement, mitral valve replacement, rheumatic valve disease, overactive bladder, hypertension, GERD, depression/anxiety disorder and other medical problems presents with history of syncope associated with dizziness, b owel incontinence. Patient is very anxious during my encounter and is restless and unable to provide much history. Most of the history is obtained from patient's at bedside, ER staff and medical records. Patient's family informs that patient had a syncopal episode earlier this morning which resulted in fall. She had a second syncopal episode resulting in loss of bowel function on her way to bathroom. Loss of consciousness lasted about 1 to 3 minutes but patient was confused and complained to have dizziness at the time. Patient's states that she had poor sleep last night and so is currently very restless which he attributes to poor sleep. No known seizure-like activity per record. She currently is oriented x 3. Patient also had ambulatory dysfunction after the syncopal episode but currently had no issues. Patient recently completed a course of Augmentin, prednisone for sinus infection. Denies any history of chest pain, dyspnea, palpitations, pedal edema, cough, fever, chills, weakness, numbness, change in vision, nausea, vomiting, abdominal pain, blood in stools, diarrhea, hematuria. Allergies Allergy/AdvReac Type Severity Reaction Status Date / Time ciprofloxacin [From Cipro] Allergy Mild drug Verified 05/04/21 10:26 interaction with lexapro benzocaine Allergy Unknown UNKNOWN Verified 05/04/21 10:26 NSAIDS (Non-Steroidal Allergy Unknown NEEDS TO Verified 05/04/21 10:26 Anti-Inflamma AVOID DUE TO GLOMERULONEPRITIS ceftriaxone AdvReac Intermediate hallucinati Verified 05/04/21 10:26 ons Home Medications Medication Instructions Recorded Confirmed Type multivitamin (Daily Multi-Vitamin 1 tab PO DAILY 09/01/19 01/04/24 History tablet) diclofenac sodium 1 % topical gel 2 gm topical QID #100 grams 04/07/20 01/04/24 Rx cholecalciferol (vitamin D3) 25 25 mcg PO QAM 11/10/20 01/04/24 History mcg (1,000 unit) capsule (Vitamin D3) amlodipine 2.5 mg tablet 2.5 mg PO QAM #90 tabs 02/23/21 01/04/24 Rx levothyroxine 112 mcg tablet 112 mcg PO QAM #90 tabs 03/05/21 01/04/24 Rx Tumeric 500 mg PO QAM 03/11/21 01/04/24 History ascorbic acid (vitamin C) 500 mg 500 mg PO QAM 03/11/21 01/04/24 History tablet multivitamin 1 tab PO QAM 03/11/21 01/04/24 History omeprazole 20 mg capsule,delayed 20 mg PO HS #90 caps 04/30/21 01/04/24 Rx release trazodone 50 mg tablet 50 mg PO HS #30 tabs 06/08/21 01/04/24 Rx metoprolol tartrate 50 mg tablet 50 mg PO BID #60 tabs 08/15/21 01/04/24 Rx warfarin 5 mg tablet 5 mg PO UD #90 tabs 06/10/22 01/04/24 Rx buspirone 10 mg tablet 10 mg PO BID 01/04/24 01/04/24 History Past Med/Surg History Medical History Osteoarthritis GERD (gastroesophageal reflux disease) Depression Hypertension Colon polyps Graves disease Paroxysmal A-fib happened with valve replacement, she was in normal sinus when discharged form hospital Hypothyroidism Glomerulonephritis Endometriosis Benzodiazepine overdose patient thought she had taken lorazepam and found that she didnot take it. it was confirmed with blood work Surgical History History of bunionectomy of left great toe H/O colonoscopy (~02/25/12) History of tubal ligation H/O mitral valve replacement (09/2014) aortic and mitral valve replaced simultaneously, [facility], [place] mechanical valve Aortic valve replaced (09/2014) September 2014, [facility], mitral and aortic valve replacements with [place] mechanical valve Family History Grandfather Myocardial infarction Denies family history of Ovarian cancer Prostate cancer Breast cancer Colorectal cancer Social History Smoking Status: Former smoker Tobacco Type: Cigarettes Age Started Using Tobacco: 13; Age Quit Using Tobacco: 60; packs per day: 1; Cigarettes Per Day: 20; Second Hand Exposure: No; Do You Dip or Chew Tobacco: No; Hx Alcohol Use: Yes Alcohol type: beer Alcohol Intake Frequency Comment: 2 beers/day Hx Substance Use: No Preferred Language: Azerbaijani Communication Ability: Effective Visual Impairment: No Limitations Hearing Ability: Normal Scientific Process Operator Required: No Beliefs That Will Affect Care: None marital status: Current Living Situation: Spouse Current Living Situation Comment: At home with spouse current occupational status: employed 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[employer], 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 Other Information That Helps Us Care for You: No Feels Safe at Home: Yes Safety Concerns: Feels Safe At This Time Physical Activity Frequency: 1-2 Times per Week Assistive Devices: None Review of Systems Review of Systems: All systems reviewed & are unremarkable except as noted in Subjective Physical Exam Physical Exam: Physical Exam: Vitals signs as noted above General Appearance:Moderately built and nourished, +Anxious Head: normocephalic, Atraumatic Eyes: normal inspection, EOMI Neck: supple, Trachea midline Respiratory/Chest: Normal breath sounds, CTA, No accessory muscle use Cardiovascular: Mechanical heart sounds, tachycardia, +murmur Abdomen/GI:Soft, Non tender, Bowel sounds present Extremities/Musculoskeletal:normal inspection, no edema Neurologic/Psych:AAOX3, grossly no focal neurological deficits Skin: normal color, warm Results & Data Results & Data Vital Signs (Past 12 Hours) Vital Signs Temp Pulse Pulse Resp BP BP Pulse Ox 01/04/24 11:52 76 01/04/24 10:53 36.6 C 81 16 125/82 97 01/04/24 10:48 01/04/24 06:00 72 17 119/65 94 01/04/24 05:30 89 16 132/64 98 01/04/24 05:28 75 01/04/24 04:30 80 29 H 111/70 98 01/04/24 04:00 83 22 98/64 L 96 01/04/24 03:30 80 17 99/73 L 96 01/04/24 03:00 74 15 103/64 96 01/04/24 02:35 80 20 114/70 97 01/04/24 02:00 79 15 112/64 98 O2 Del Method 01/04/24 11:52 01/04/24 10:53 Room Air 01/04/24 10:48 Room Air 01/04/24 06:00 01/04/24 05:30 01/04/24 05:28 01/04/24 04:30 01/04/24 04:00 01/04/24 03:30 01/04/24 03:00 01/04/24 02:35 01/04/24 02:00 Laboratory Results Short CBC 01/04/24 Range/Units Unknown WBC 25.41 H (4.8-10.8) K/ul Hgb 13.5 (12.0-16.0) g/dl Hct 41.1 (37.0-47.0) % Plt Count 229 (130-400) K/uL BMP 01/04/24 Unknown Sodium 134 L Potassium 3.0 L Chloride 99 Carbon Dioxide 28 BUN 18 Creatinine 1.26 H Glucose 109 H Calcium 9.7 Cardiac Enzymes 01/04/24 Range/Units Unknown Total Creatine Kinase 1208 H (26-192) U/L Liver Function 01/04/24 Range/Units Unknown Total Bilirubin 0.7 (0.2-1.0) mg/dl AST 66 H (13-39) U/L ALT 49 (7-52) U/L Alkaline Phosphatase 73 (34-104) U/L Albumin 4.1 (3.4-5.0) gm/dl Urine 01/04/24 Range/Units 04:10 Urine Color Dark Yellow Urine Appearance Cloudy A (Clear) Urine pH 5.0 (4.5-7.5) Ur Specific [place] 1.033 H (1.000-1.030) Urine Protein 1+ H (Negative) Urine Glucose (UA) Negative (Negative) Diagnostic Findings --Chest CTA:No evidence of acute pulmonary embolism. No definite evidence of pneumonia. --CT ABD:No evidence of colitis or enteritis. --CT head:No acute intracranial hemorrhage, midline shift, or mass effect. --Neck CT:No acute fracture or subluxation of the cervical spine. Code Status & VTE Plan VTE Prophylaxis Plan VTE Prophylaxis will be ordered: Yes
[2024-01-04] MEDS: PIPERACILLIN/TAZOBACTAM 4.5 GM in DEXTROSE 5% MINI-B 100 ML IV SCH (19:33)
[2024-01-04] MEDS: ACETAMINOPHEN 325 MG TAB PO PRN (19:38)
[2024-01-04] MEDS: traZODone HCL 50 MG TAB PO SCH (20:20)
[2024-01-04] MEDS: PANTOprazole 40 MG TAB PO SCH (20:20)
[2024-01-04] MEDS: SODIUM CHLORIDE 0.65% NA SOLN 45 ML (OCEAN) ONE (23:22)
[2024-01-05 00:32] LABS: BUN Creatinine Ratio 17.4 (10-20); Calcium 8.8 mg/dl (8.6-10.3); Creatinine Clr Calc Pharmacy 46.1 ml/min; Est GFR (Non-African American) 43.1 ml/min; Potassium 4.8 mmol/L (3.5-5.1)
[2024-01-05] MEDS: SODIUM CHLORIDE 0.9% 1,000 ML IV ONE (02:18)
--- NOTE | 2024-01-05 05:51 | Electrocardiogram Report ---
Test Reason : Blood Pressure : / mmHG Vent. Rate : 073 BPM Atrial Rate : 073 BPM P-R Int : 166 ms QRS Dur : 148 ms QT Int : 424 ms P-R-T Axes : 057 017 036 degrees QTc Int : 467 ms Normal sinus rhythm with sinus arrhythmia Right bundle branch block Abnormal ECG When compared with ECG of 01-SEP-2019 19:44, Right bundle branch block is now Present Confirmed by Ben Sanchez ([id number]) on 01/05/2024 5:50:51 AM Referred By: REFERRED SELF Confirmed By:Ben Sanchez
[2024-01-05 06:34] LABS: Basophils # (auto) 0.03 K/uL (0.00-0.20); Basophils % (auto) 0.3 %; Eosinophils # (auto) 0.37 K/uL (0.00-0.50); Eosinophils % (auto) 3.1 %; Hematocrit (blood only) 36.5 % (37.0-47.0); Hemoglobin 11.7 g/dl (12.0-16.0); Immature Granulocytes % (auto) 0.8 %; Lymphocytes # (auto) 1.54 K/uL (1.20-3.40); Mean Corpuscular Hemoglobin 29.2 pg (25.0-34.0); Mean Corpuscular Hgb Conc 32.1 g/dL (32.0-36.0); Mean Platelet Volume 11.2 fL (9.4-12.4); Monocytes # (auto) 0.91 K/uL (0.11-0.59); Monocytes % (auto) 7.7 %; Neutrophils # (auto) 8.87 K/uL (1.40-6.50); Neutrophils % (auto) 75.1 %; Platelet Count 190 K/uL (130-400); RDW Coefficient of Variation 13.7 % (11.5-14.5); RDW Standard Deviation 45.1 fL (36.4-46.3); Red Blood Count 4.01 M/uL (4.20-5.40); White Blood Count 11.82 K/ul (4.8-10.8)
[2024-01-05 06:53] LABS: INR 4.4 (0.9-1.1); Prothrombin Time 44.2 Seconds (9.0-12.0)
[2024-01-05 07:00] LABS: Albumin Globulin Ratio 1.6 (0.9-2); Albumin Level 3.8 gm/dl (3.4-5.0); BUN Creatinine Ratio 19.2 (10-20); Bilirubin,Total 0.5 mg/dl (0.2-1.0); Creatinine Clr Calc Pharmacy 61.4 ml/min; Est GFR (African American) 70.8 ml/min; Est GFR (Non-African American) 61.1 ml/min; Globulin 2.4 gm/dl (2.5-4.0); Magnesium 1.9 mg/dl (1.7-2.4); Potassium 4.5 mmol/L (3.5-5.1); Total Protein 6.2 gm/dl (6.0-8.3)
[2024-01-05 07:11] LABS: Thyroid Stimulating Hormone 9.066 uIu/ml (0.300-4.500)
[2024-01-05 07:49] LABS: T4 Free Thyroxine 0.96 ng/dl (0.61-1.60)
[2024-01-05] MEDS: amLODIPine BESYLATE 5 MG TAB PO SCH (08:03)
--- NOTE | 2024-01-05 09:09 | Ultrasound Report ---
US carotid doppler BI CLINICAL HISTORY: 63 years-old Female with syncope. COMPARISON: None TECHNIQUE: Multiple real time sonographic images of the carotid bifurcations were obtained assessing burroughs scale, color Doppler and spectral wave form appearance FINDINGS: RIGHT CAROTID: The peak systolic velocity measured within the right ICA is 103 cm/sec. The end lynn tolic velocity measured 31 cm/sec. The ICA to CCA ratio measured 1.5 which correlates with a stenosi s of 0-50%. There is moderate atherosclerosis. LEFT CAROTID: The peak systolic velocity measured within the left ICA is 84 cm/sec. The end diastol ic velocity measured 27 cm/sec. The ICA to CCA ratio measured 1.3 which correlates with a stenosis of 0-50%. There is mild atherosclerosis. There is normal antegrade vertebral flow bilaterally. IMPRESSION: 1. Atherosclerosis without hemodynamically significant stenosis. 2. Normal antegrade vertebral flow bilaterally. ACT 112: Negative or not required by law. The above report was generated using voice recognition software. It may contain grammatical, syntax o r spelling errors. Electronically signed by: Uri Quinonez M.D. 01/05/2024 9:07 AM
[2024-01-05 09:41] LABS: Adenovirus F 40/41 PCR Not Detected (NotDetected); Astrovirus PCR Not Detected (NotDetected); Campylobacter PCR Not Detected (NotDetected); Cryptosporidium PCR Not Detected (NotDetected); Cyclospora cayetanensis PCR Not Detected (NotDetected); Entamoeba histolytica PCR Not Detected (NotDetected); Enteroaggregative E.coli(EAEC) Not Detected (NotDetected); Enteropathogenic E.coli (EPEC) Not Detected (NotDetected); Enterotoxigenic E.coli (ETEC) Not Detected (NotDetected); Giardia lamblia PCR Not Detected (NotDetected); Norovirus GI/GII PCR Not Detected (NotDetected); Plesiomonas shigelloides PCR Not Detected (NotDetected); Rotavirus A PCR Not Detected (NotDetected); Salmonella PCR Not Detected (NotDetected); Sapovirus PCR Not Detected (NotDetected); Shiga-like Toxin E.coli (STEC) Not Detected (NotDetected); Shigella/Enteroinvasive E.coli Not Detected (NotDetected); Vibrio cholerae PCR Not Detected (NotDetected); Vibrio species PCR Not Detected (NotDetected); Yersinia enterocolitica PCR Not Detected (NotDetected)
[2024-01-05 10:05] LABS: Cdiff Toxin B Gene (2yr or >) Positive Cdiff Gene (Neg)
--- NOTE | 2024-01-05 10:56 | Cardiology Progress Note ---
Date of Service January 05, 2024 Assessment & Plan (1) Syncope and collapse: (2) Leukocytosis: (3) Elevated CPK: (4) Insomnia: (5) Anxiety: (6) Fatigue: (7) Paroxysmal A-fib: (8) Hypothyroidism: (9) Aortic valve replaced: (10) H/O mitral valve replacement: (11) Hyponatremia: (12) Hypokalemia: (13) Supratherapeutic INR: (14) TALI (acute kidney injury): (15) Right bundle branch block: Plan Impression: -Complex 63 year old female with syncope with collapse x2 . Associated with hypotension in the setting of infection. She had prodromal symptoms and electrolyte imbalance. Recently treated for a sinus infection. -Reports history of frequent falls with previous UTI's. -Hx elevated aortic valve velocities in 2021, but did not follow up due to insurance reasons. -Patient is also taking scripts at home that are not hers. Took Tramadol, B aclofen, Trazodone, Ativan, and Buspar prior to episodes. Patient has a history of mechanical [place]VR/AVR [place] September [address] [place] [facility] [place] -Psych consulted for insomnia and anxiety. Does not recall taking an extra dose of her Coumadin at home. Unclear ETOH intake. Plan: -Leukocytosis with no clear source of infection. Given her history of mechanical valve replacements she will need an echocardiogram to reassess her valves. -There was a concern for elevated aortic valve velocities in 2021. I am concerned for severe at this point. -Blood cultures show no growth to day. If positive may need to consider other imaging modalities to rule out bacteremia.UA did not show concern for UTI, but culture is pending. -Anticoagulated with Coumadin for mechanical valves and history of paroxysmal atrial fibrillation. INR supratherapeutic. Denies abnormal bleeding. -Ectopy noted on telemetry secondary to electrolyte imbalance. Continue to monitor on telemetry. -Keep K > 4.0 and Magnesium >2.0 -Agree with psych consult. 01/05/2024 63-year-old female with complex valvular heart disease admitted following profound syncopal event. Noted to been ill for a week treated with Augmentin and prednisone for sinusitis. Presentation appears to be multifactorial however echocardiogram demonstrates increased prosthetic aortic valve gradients of 3.9 m/s through the aortic valve increased from past No current fevers and blood cultures negative (recent antibiotics) No lapse in anticoagulation Discussed management with the patient. Will recommend transesophageal echo cardiogram for further assessment of mechanical prosthesis Tentatively planned for a.m. 01/06/2024 N.p.o. after midnight I spent a total of 35 minutes on the date of service in preparation, delivery, and documentation of the care provided to this patient, excluding any time spent in the performance of separately billed services. This chart was completed in part utilizing Speech Voice Recognition Software. Grammatical errors, random word insertions, pronoun errors, and incomplete sentences are an occasional consequence of this system due to software limitations, ambient noise, and hardware issues. Any formal questions or concerns about the content, text, or information contained within the body of this dictation should be directly addressed to the provider for clarification. Admission and Anticipated Discharge Date Admission Date: January 04, 2024 Subjective Patient was seen and personally examined. Generally doing well with mild weakness this morning on standing but no syncope or near syncope. No fevers or chills. No arrhythmias on telemetry She has no urinary complaints but notes urinary tract infections frequently resulting in mental status changes Physically active usually without recent change in exercise tolerance. Has been struggling with insomnia Recent treatment for sinus infection, strep exposure. Received Augmentin and prednisone on 12/27/2023 Review of Systems Review of Systems: All systems reviewed & are unremarkable except as noted in Subjective Physical Exam Constitutional: WD/WN, vitals as above Eyes: PERRL, conjunctivae normal, anicteric sclerae Respiratory: normal respiratory effort, lungs clear to auscultation normal respiratory effort; no respiratory distress Auscultation: lungs clear to auscultation bilaterally Cardiovascular: RRR, no murmur, no edema Rate/Rhythm: regular rate and regular rhythm Heart Sounds: + murmur ([place] mechanical valve sounds) Vessels: no JVD Extremities: normal capillary refill; no edema Gastrointestinal (Abdomen): normal bowel sounds, soft, nontender, no hepatosplenomegaly Neurologic: PERRL, EOMI, accommodation nl, no face palsy, no dysarthria Psychiatric: Orientation: alert and oriented x 3 Results & Data Vital Signs (Past 12 Hours) Vital Signs Temp Pulse Pulse Resp BP Pulse Ox O2 Del Method 01/05/24 10:41 36.6 C 72 20 167/79 H 100 Room Air 01/05/24 06:59 36.6 C 73 20 130/85 98 Room Air 01/05/24 00:10 71 96/67 L 01/04/24 23:03 36.8 C 82 17 177/84 H 97 Room Air Laboratory Results Laboratory Results - last 24 hr 01/04/24 01/05/24 01/05/24 23:51 06:07 Unknown WBC 11.82 H RBC 4.01 L Hgb 11.7 L Hct 36.5 L MCV 91.0 MCH 29.2 MCHC 32.1 RDW Std Deviation 45.1 RDW Coeff of Barbara 13.7 Plt Count 190 MPV 11.2 Immature Gran % (Auto) 0.8 Neut % (Auto) 75.1 Lymph % (Auto) 13.0 [place] % (Auto) 7.7 Eos % (Auto) 3.1 Baso % (Auto) 0.3 Neut # (Auto) 8.87 H Lymph # (Auto) 1.54 [place] # (Auto) 0.91 H Eos # (Auto) 0.37 Baso # (Auto) 0.03 Immature Gran # (Auto) 0.10 PT 44.2 H INR 4.4 H Sodium 134 L 136 Potassium 4.8 D 4.5 Chloride 106 106 Carbon Dioxide 23 27 Anion Gap 5 3 BUN 23 19 Creatinine 1.32 H 0.99 D Est Cr Clr Drug Dosing 46.1 61.4 Est GFR ( Amer) 50.0 70.8 Est GFR (Non-Af Amer) 43.1 61.1 BUN/Creatinine Ratio 17.4 19.2 Glucose 102 H 97 Calcium 8.8 9.0 Magnesium 1.9 Total Bilirubin 0.5 AST 34 ALT 34 Alkaline Phosphatase 61 Total Creatine Kinase 416 H Total Protein 6.2 Albumin 3.8 Globulin 2.4 L Albumin/Globulin Ratio 1.6 Procalcitonin 0.11 TSH 9.066 H Free T4 0.96 Stl C. cayetanensis PCR Not Detected Stool Rotavirus A PCR Not Detected Stl Adenov F 40/41 PCR Not Detected Stool Astrovirus (PCR) Not Detected Stool Campylobacter PCR Not Detected Stl C. diff Tox B Gene Positive Cdiff Gene H Stl C.difficile Tox A&B Pending Stool Cryptosporidium PCR Not Detected Stl E.coli Shiga Tox PCR Not Detected Stl Enterotoxigenic E PCR Not Detected Stool EPEC (PCR) Not Detected Stool EAEC (PCR) Not Detected Stl E. histolytica PCR Not Detected Stool Giardia [place] PCR Not Detected Stool Salmonella PCR Not Detected Stool Sapovirus (PCR) Not Detected Stl P. shigelloides PCR Not Detected Stl Shigella/EIEC PCR Not Detected St Y.enterocolitica PCR Not Detected Stool Vibrio (PCR) Not Detected Stl Vibrio cholerae PCR Not Detected Stl Norovirus GI/GII PCR Not Detected (2) Leukocytosis Leukocytosis type: unspecified Qualified Code(s): D72.829 - Elevated white blood cell count, unspecified
--- NOTE | 2024-01-05 10:57 | Electrocardiogram Report ---
Test Reason : Blood Pressure : / mmHG Vent. Rate : 072 BPM Atrial Rate : 072 BPM P-R Int : 186 ms QRS Dur : 132 ms QT Int : 412 ms P-R-T Axes : 066 031 052 degrees QTc Int : 451 ms Normal sinus rhythm with sinus arrhythmia Right bundle branch block Abnormal ECG When compared with ECG of 04-JAN-2024 01:28, T wave inversion less evident in Anterior leads Confirmed by Clay Batista ([id number]) on 01/05/2024 10:56:40 AM Referred By: REFERRED SELF Confirmed By:Clay Batista
[2024-01-05 10:59] LABS: Cdiff Antigen Positive; Cdiff Toxin A+B Negative Cdiff Toxin (Negative)
--- NOTE | 2024-01-05 14:38 | Psychiatric Consultation ---
Date of Consultation January 05, 2024 Impression / Recommendations Impression The patient current presentation appears to be multifactorial: Untreated mood disorder, recent use of steroids (with impact on her mood and sleep pattern), infection, chronic pain. She was initially reluctant to start psychotropic medications but agreed to a trial of low-dose Depakote. This medication will be used to target mood, irritability and could help with headache and insomnia. Patient was educated about the rationale for selecting this medication and the potential side effects including interactions with medications, sedation, and concerns about liver function. The patient does have anticoagulation with PT of 44.2 and INR of 4.4 with a platelet count of 190. These are not chronic trend occasions for the use of Depakote but warrant close monitoring for risk of bleeding and worsening of thrombocytopenia. Liver function tests are within normal limits (AST= 34/ ALT =34). Patient will benefit from close monitoring with [facility] protocol due to concerns about underreporting the use of benzos and alcohol and risk for withdrawal. Overall, I spent a total of 90 minutes with this case, including review of chart,direct evaluation of the patient, counseling the patient, communication with family, ordering medication, risk assessment, and documentation. (1) Bipolar disorder: Current episode severity: unspecified Plan 1. Start Depakote 250 mg p.o. at bedtime first dose today 01/05/2024. 2. Continue to monitor mood and irritability 3. Encourage patient to stay awake during the daytime avoid taking naps. 4. Monitor for possible bleeding 5. Monitor for platelet count 6. Continue trazodone and BuSpar without changes 7. Psychiatry will follow up tomorrow Psych History Chief Complaint "I just need to sleep". History of Present Illness Ms. Worthy is a 63 yo white female with a history of mood disorder and multiple chronic medical conditions including mechanical aortic valve replacement (2014) with chronic anticoagulation therapy, iatrogenic hypothyroidism (radioactive iodine ablation for hyperthyroidism).She presented to the ED complaining of insomnia and a recent episode of syncope. Patient recently completed a course of Augmentin, prednisone for sinus infection. On admission to the medical floor, she presented multiple laboratory abnormalities. According to the Nurse Liaison eval for initial consultation: ". . .Patient seen for initial consult, alert and oriented x 4 - talkative and elevated in her mood - Umang at bedside, patient denies SI/HI - states "are you kidding me I was just talking to my grandson when you walked in. 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 . ." During a follow up encounter with nurse liaison, " . . . Patient is talkative, irritable, restless; manic-like behavior. According to previous records, patient has a history of manic behavior but was instructed to complete psych testing (2013), unknown if testing was completed. Patient reports it is very difficult to sit still and explains that she feels impulsive (in other words). Patient uses vulgar language . . ." During the evaluation with Quinn [place], the patient presented equally irritable. She answered questions with an exasperated tone. She was restless, changing her position in bed multiple times, get up and waling back and forth form the bed to the restroom and viceversa. Patient made indirect comments about interest in being treated with benzo's to help with insomnia and irritability. Patient denies SI/HI, no delusions or psychosis observed. She provided conflicting information about her psychiatric history: Stated the dx of Bipolar was ruled out via psychological testing and after she demonstrated good response to benzo's alone; however, she stated she had a manic episode in 2013 (patient used the term "manic"). The current episode started shortly after she was treated with steroids for sinus infection. Around the same time frame she also developed insomnia and irritability. In the last 3 days she felt dizzy or unsteady. On or Friday had a fall at work that she believes was not because of feeling dizzy but because of a wet floor. In another fall at home on Friday at midnight. She has been complaining of headaches, neck pain and irritability. She also provides contradicting information regarding the use of benzo's stated she has not been taking benzo's on a regular basis, stated she has "stockpiles "of Ativan at home, and also insist that benzos are the best treatment for her. It is unclear if she could be experiencing benzodiazepine withdrawal. There is no UDS available. The patient was evasive when asked about alcohol use. During the exam she had trouble organizing her thoughts and difficulty providing a clear timeline of the events in the last 72 hours. Reported she was feeling "confused" and was aware of her irritability. Her was interview and provided information regarding the timeline of events in the last 3 days and some background information including family history (brother with Bipolar DO). Past Psychiatric History Previous Psych History: The patient reported one episode of "anabel" during which she had increased level of energy difficulty with sleep and required an admission [facility]. During that admission she was treated with antipsychotics. Patient reported she had "the T horazine shuffle" (likely referring to EPS from antipsychotics). She was referred for psychological testing to clarify the diagnosis the results of the tests are unknown; however, her reported the results were negative for bipolar. She continued treatment for depression and anxiety with SSRIs and trazodone for insomnia. Outpatient Services: The patient is not receiving outpatient psychiatric services. Her antidepressants are provided by a primary care physician. Previous Psych Admissions: 2013 as stated above. Denied recent psychiatric hospitalization. Past Medication Trials: Trazodone (from 50 mg to 300 mg), Lexapro, Ativan, buspirone, unknown antipsychotic (patient refused to provide name of medications tried in 2013). Denied history of being treated with Depakote. Allergies Allergy/AdvReac Type Severity Reaction Status Date / Time ciprofloxacin [From Cipro] Allergy Mild drug Verified 05/04/21 10:26 interaction with lexapro benzocaine Allergy Unknown UNKNOWN Verified 05/04/21 10:26 NSAIDS (Non-Steroidal Allergy Unknown NEEDS TO Verified 05/04/21 10:26 Anti-Inflamma AVOID DUE TO GLOMERULONEPRITIS ceftriaxone AdvReac Intermediate hallucinati Verified 05/04/21 10:26 ons Home Medications Medication Instructions Recorded Confirmed Type multivitamin (Daily Multi-Vitamin 1 tab PO DAILY 09/01/19 01/04/24 History tablet) diclofenac sodium 1 % topical gel 2 gm topical QID #100 grams 04/07/20 01/04/24 Rx cholecalciferol (vitamin D3) 25 25 mcg PO QAM 11/10/20 01/04/24 History mcg (1,000 unit) capsule (Vitamin D3) amlodipine 2.5 mg tablet 2.5 mg PO QAM #90 tabs 02/23/21 01/04/24 Rx levothyroxine 112 mcg tablet 112 mcg PO QAM #90 tabs 03/05/21 01/04/24 Rx Tumeric 500 mg PO QAM 03/11/21 01/04/24 History ascorbic acid (vitamin C) 500 mg 500 mg PO QAM 03/11/21 01/04/24 History tablet multivitamin 1 tab PO QAM 03/11/21 01/04/24 History omeprazole 20 mg capsule,delayed 20 mg PO HS #90 caps 04/30/21 01/04/24 Rx release trazodone 50 mg tablet 50 mg PO HS #30 tabs 06/08/21 01/04/24 Rx metoprolol tartrate 50 mg tablet 50 mg PO BID #60 tabs 08/15/21 01/04/24 Rx warfarin 5 mg tablet 5 mg PO UD #90 tabs 06/10/22 01/04/24 Rx buspirone 10 mg tablet 10 mg PO BID 01/04/24 01/04/24 History Patient History Medical History Osteoarthritis GERD (gastroesophageal reflux disease) Depression Hypertension Colon polyps Graves disease Paroxysmal A-fib happened with valve replacement, she was in normal sinus when discharged form hospital Hypothyroidism Glomerulonephritis Endometriosis Benzodiazepine overdose patient thought she had taken lorazepam and found that she didnot take it. it was confirmed with blood work Surgical History History of bunionectomy of left great toe H/O colonoscopy (~02/25/12) History of tubal ligation H/O mitral valve replacement (09/2014) aortic and mitral valve replaced simultaneously, [facility], [place] mechanical valve Aortic valve replaced (09/2014) September 2014, [facility], mitral and aortic valve replacements with [place] mechanical valve Family History (Updated 01/05/24 @ 18:17 by Cristal Galvan MD) Grandfather Myocardial infarction Brother Bipolar disorder Denies family history of Ovarian cancer Prostate cancer Breast cancer Colorectal cancer Social History Smoking Status: Former smoker Tobacco Type: Cigarettes Age Started Using Tobacco: 13; Age Quit Using Tobacco: 60; packs per day: 1; Cigarettes Per Day: 20; Second Hand Exposure: No; Do You Dip or Chew Tobacco: No; Hx Alcohol Use: Yes Alcohol type: beer Alcohol Intake Frequency Comment: 2 beers/day Hx Substance Use: No Preferred Language: Kyrgyz Communication Ability: Effective Visual Impairment: No Limitations Hearing Ability: Normal Machine Set Up Required: No Beliefs That Will Affect Care: None marital status: Current Living Situation: Spouse Current Living Situation Comment: At home with spouse current occupational status: employed 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[employer], 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 Other Information That Helps Us Care for You: No Feels Safe at Home: Yes Safety Concerns: Feels Safe At This Time Physical Activity Frequency: 1-2 Times per Week Assistive Devices: None Physical Exam Mental Examination: Appearance: Unkempt Eye Contact: No Eye Contact Motor Behavior: Pacing and Restless Speech: Pressured, Loud and Perseverating Mood: Anxious, Dyphoric and Irritable Affect: Anxious, Hostile and Irritable Thought Process: Circumstantial Thought Content: Goal Oriented Hallucinations: None Insight: Poor Judgement: Poor Vital Signs (Past 24 Hours): Last Vital Signs Temp 36.6 C 01/05/24 10:41 Pulse 72 01/05/24 10:41 Resp 20 01/05/24 10:41 BP 167/79 H 01/05/24 10:41 Pulse Ox 100 01/05/24 10:41 O2 Del Method Room Air 01/05/24 10:41 Exam Statement: A physical exam was performed in the ED by Dr. Bond for the purposes of medical clearance. I accept that physical as correct and adequate for the purposes of the inpatient physical exam. Review of Systems congestion denied difficulty breathing Additional Comments: denied chest pain Neck and back pain, join pain. +dizziness, +headche see above Results & Data (PSY) Laboratory Results Microbiology 01/04/24 04:24 Urine,Clean Catch Urine Culture - Final More than three types of organisms present, all moderate counts mixed probable skin west. No further identifications or sensitivities to follow. 01/04/24 04:25 Blood Aerobic Blood Culture - Preliminary No growth in Aerobic bottle after 24 hours. 01/04/24 04:25 Blood Anaerobic Blood Culture - Preliminary No growth in Anaerobic bottle after 24 hours. 01/04/24 04:17 Blood Aerobic Blood Culture - Preliminary No growth in Aerobic bottle after 24 hours. 01/04/24 04:17 Blood Anaerobic Blood Culture - Preliminary No growth in Anaerobic bottle after 24 hours. Labs 01/04/24 01/04/24 01/04/24 04:10 04:17 04:35 WBC RBC Hgb Hct MCV MCH MCHC RDW Std Deviation RDW Coeff of Barbara Plt Count MPV Immature Gran % (Auto) Neut % (Auto) Lymph % (Auto) [place] % (Auto) Eos % (Auto) Baso % (Auto) Neut # (Auto) Lymph # (Auto) [place] # (Auto) Eos # (Auto) Baso # (Auto) Immature Gran # (Auto) PT INR APTT PTT Ratio Sodium Potassium Chloride Carbon Dioxide Anion Gap BUN Creatinine Est Cr Clr Drug Dosing Est GFR ( Amer) Est GFR (Non-Af Amer) BUN/Creatinine Ratio Glucose Lactate 0.7 Calcium Magnesium Total Bilirubin AST ALT Alkaline Phosphatase Total Creatine Kinase Troponin I High Sens 14.0 Total Protein Albumin Globulin Albumin/Globulin Ratio Procalcitonin TSH Free T4 Urine Color Dark Yellow Urine Appearance Cloudy A Urine pH 5.0 Ur Specific [place] 1.033 H Urine Protein 1+ H Urine Glucose (UA) Negative Urine Ketones 1+ H Urine Blood Trace H Urine Nitrite Negative Urine Bilirubin 1+ H Urine Urobilinogen Negative Ur Leukocyte Esterase 2+ H Urine WBC (Auto) 0-5 Urine RBC (Auto) 11-20 H U Hyaline Cast (Auto) >20 H U Epithel Cells (Auto) 3-5 H Urine Bacteria (Auto) None Seen Urine Mucus Present A Stl C. cayetanensis PCR Stool Rotavirus A PCR Stl Adenov F PCR Stool Astrovirus (PCR) Stool Campylobacter PCR Stl C. diff Tox B Gene Stl C.difficile Tox A&B Stool Cryptosporidium PCR Stl E.coli Shiga Tox PCR Stl Enterotoxigenic E PCR Stool EPEC (PCR) Stool EAEC (PCR) Stl E. histolytica PCR Stool Giardia Lamblia PCR Stool Salmonella PCR Stool Sapovirus (PCR) Stl P. shigelloides PCR Stl Shigella/EIEC PCR St Y.enterocolitica PCR Stool Vibrio (PCR) Stl Vibrio cholerae PCR Stl Norovirus GI/GII PCR Adenovirus (PCR) Not Detected B. pertussis DNA (PCR) Not Detected B.parapertussis DNA PCR Not Detected C. pneumoniae DNA (PCR) Not Detected Coronavirus OC43 (PCR) Not Detected Coronavirus HKU1 (PCR) Not Detected Coronavirus 229E (PCR) Not Detected SARS-CoV-2 (PCR) Not Detected Coronavirus NL63 (PCR) Not Detected Human Metapneumovir PCR Not Detected Influenza Type A (PCR) Not Detected Influenza Type B (PCR) Not Detected M. pneumoniae (PCR) Not Detected Parainfluenza 1 (PCR) Not Detected Parainfluenza 2 (PCR) Not Detected Parainfluenza 3 (PCR) Not Detected Parainfluenza 4 (PCR) Not Detected RSV (PCR) Not Detected Entero/Rhino (PCR) Not Detected 01/04/24 01/04/24 01/05/24 23:51 Unknown 06:07 WBC 25.41 H 11.82 H RBC 4.61 4.01 L Hgb 13.5 11.7 L Hct 41.1 36.5 L MCV 89.2 91.0 MCH 29.3 29.2 MCHC 32.8 32.1 RDW Std Deviation 43.7 45.1 RDW Coeff of Barbara 13.6 13.7 Plt Count 229 190 MPV 12.3 11.2 Immature Gran % (Auto) 1.0 0.8 Neut % (Auto) 76.8 75.1 Lymph % (Auto) 15.5 13.0 [place] % (Auto) 5.6 7.7 Eos % (Auto) 0.7 3.1 Baso % (Auto) 0.4 0.3 Neut # (Auto) 19.52 H 8.87 H Lymph # (Auto) 3.94 H 1.54 [place] # (Auto) 1.43 H 0.91 H Eos # (Auto) 0.18 0.37 Baso # (Auto) 0.09 0.03 Immature Gran # (Auto) 0.25 H 0.10 PT 42.4 H 44.2 H INR 4.2 H 4.4 H APTT 39 H PTT Ratio 1.4 Sodium 134 L 134 L 136 Potassium 4.8 D 3.0 L 4.5 Chloride 106 99 106 Carbon Dioxide 23 28 27 Anion Gap 5 7 3 BUN 23 18 19 Creatinine 1.32 H 1.26 H 0.99 D Est Cr Clr Drug Dosing 46.1 47.7 61.4 Est GFR ( Amer) 50.0 52.9 70.8 Est GFR (Non-Af Amer) 43.1 45.6 61.1 BUN/Creatinine Ratio 17.4 14.3 19.2 Glucose 102 H 109 H 97 Lactate Calcium 8.8 9.7 9.0 Magnesium 2.0 1.9 Total Bilirubin 0.7 0.5 AST 66 H 34 ALT 49 34 Alkaline Phosphatase 73 61 Total Creatine Kinase 1208 H 416 H Troponin I High Sens 13.5 Total Protein 6.9 6.2 Albumin 4.1 3.8 Globulin 2.8 2.4 L Albumin/Globulin Ratio 1.5 1.6 Procalcitonin 0.11 TSH 9.512 H 9.066 H Free T4 1.16 0.96 Urine Color Urine Appearance Urine pH Ur Specific [place] Urine Protein Urine Glucose (UA) Urine Ketones Urine Blood Urine Nitrite Urine Bilirubin Urine Urobilinogen Ur Leukocyte Esterase Urine WBC (Auto) Urine RBC (Auto) U Hyaline Cast (Auto) U Epithel Cells (Auto) Urine Bacteria (Auto) Urine Mucus Stl C. cayetanensis PCR Stool Rotavirus A PCR Stl Adenov F 40/41 PCR Stool Astrovirus (PCR) Stool Campylobacter PCR Stl C. diff Tox B Gene Stl C.difficile Tox A&B Stool Cryptosporidium PCR Stl E.coli Shiga Tox PCR Stl Enterotoxigenic E PCR Stool EPEC (PCR) Stool EAEC (PCR) Stl E. histolytica PCR Stool Giardia Lamblia PCR Stool Salmonella PCR Stool Sapovirus (PCR) Stl P. shigelloides PCR Stl Shigella/EIEC PCR St Y.enterocolitica PCR Stool Vibrio (PCR) Stl Vibrio cholerae PCR Stl Norovirus GI/GII PCR Adenovirus (PCR) B. pertussis DNA (PCR) B.parapertussis DNA PCR C. pneumoniae DNA (PCR) Coronavirus OC43 (PCR) Coronavirus HKU1 (PCR) Coronavirus 229E (PCR) SARS-CoV-2 (PCR) Coronavirus NL63 (PCR) Human Metapneumovir PCR Influenza Type A (PCR) Influenza Type B (PCR) M. pneumoniae (PCR) Parainfluenza 1 (PCR) Parainfluenza 2 (PCR) Parainfluenza 3 (PCR) Parainfluenza 4 (PCR) RSV (PCR) Entero/Rhino (PCR) 01/05/24 Unknown WBC RBC Hgb Hct MCV MCH MCHC RDW Std Deviation RDW Coeff of Barbara Plt Count MPV Immature Gran % (Auto) Neut % (Auto) Lymph % (Auto) [place] % (Auto) Eos % (Auto) Baso % (Auto) Neut # (Auto) Lymph # (Auto) [place] # (Auto) Eos # (Auto) Baso # (Auto) Immature Gran # (Auto) PT INR APTT PTT Ratio Sodium Potassium Chloride Carbon Dioxide Anion Gap BUN Creatinine Est Cr Clr Drug Dosing Est GFR ( Amer) Est GFR (Non-Af Amer) BUN/Creatinine Ratio Glucose Lactate Calcium Magnesium Total Bilirubin AST ALT Alkaline Phosphatase Total Creatine Kinase Troponin I High Sens Total Protein Albumin Globulin Albumin/Globulin Ratio Procalcitonin TSH Free T4 Urine Color Urine Appearance Urine pH Ur Specific [place] Urine Protein Urine Glucose (UA) Urine Ketones Urine Blood Urine Nitrite Urine Bilirubin Urine Urobilinogen Ur Leukocyte Esterase Urine WBC (Auto) Urine RBC (Auto) U Hyaline Cast (Auto) U Epithel Cells (Auto) Urine Bacteria (Auto) Urine Mucus Stl C. cayetanensis PCR Not Detected Stool Rotavirus A PCR Not Detected Stl Adenov F 40/41 PCR Not Detected Stool Astrovirus (PCR) Not Detected Stool Campylobacter PCR Not Detected Stl C. diff Tox B Gene Positive Cdiff Gene H Stl C.difficile Tox A&B Negative Cdiff Toxin Stool Cryptosporidium PCR Not Detected Stl E.coli Shiga Tox PCR Not Detected Stl Enterotoxigenic E PCR Not Detected Stool EPEC (PCR) Not Detected Stool EAEC (PCR) Not Detected Stl E. histolytica PCR Not Detected Stool Giardia Lamblia PCR Not Detected Stool Salmonella PCR Not Detected Stool Sapovirus (PCR) Not Detected Stl P. shigelloides PCR Not Detected Stl Shigella/EIEC PCR Not Detected St Y.enterocolitica PCR Not Detected Stool Vibrio (PCR) Not Detected Stl Vibrio cholerae PCR Not Detected Stl Norovirus GI/GII PCR Not Detected Adenovirus (PCR) B. pertussis DNA (PCR) B.parapertussis DNA PCR C. pneumoniae DNA (PCR) Coronavirus OC43 (PCR) Coronavirus HKU1 (PCR) Coronavirus 229E (PCR) SARS-CoV-2 (PCR) Coronavirus NL63 (PCR) Human Metapneumovir PCR Influenza Type A (PCR) Influenza Type B (PCR) M. pneumoniae (PCR) Parainfluenza 1 (PCR) Parainfluenza 2 (PCR) Parainfluenza 3 (PCR) Parainfluenza 4 (PCR) RSV (PCR) Entero/Rhino (PCR) Diagnostic Findings Unspecified mood DO R/O Bipolar Disorder R/O sedative and alcohol use DO Medications Administered Acetaminophen (Acetaminophen 325 Mg Tab) 650 mg PO Q4H PRN PRN Reason: Pain or Fever Stop: 02/03/24 11:21 Last Admin: 01/05/24 06:46 Dose: 650 mg Documented By: Admin: 01/04/24 19:38 Dose: 650 mg Documented By: RODRICK Amlodipine Besylate (Amlodipine Besylate 5 Mg Tab) 2.5 mg PO QAM [facility] Stop: 02/04/24 08:59 Last Admin: 01/05/24 08:03 Dose: 2.5 mg Documented By: MILADY Buspirone HCl (Buspirone 5 Mg Tab) 10 mg PO BID [facility] Stop: 02/03/24 09:44 Last Admin: 01/05/24 08:04 Dose: 10 mg Documented By: Admin: 01/04/24 20:20 Dose: 10 mg Documented By: Admin: 01/04/24 11:17 Dose: 10 mg Documented By: BEULAH Piperacillin Sod/Tazobactam (Sod 4.5 gm/ Dextrose) 100 mls @ 25 mls/hr IV Q8H [facility]; Protocol Stop: 01/06/24 18:59 Last Infusion: 01/05/24 08:01 Dose: Infused Documented By: Admin: 01/05/24 03:05 Dose: 25 mls/hr Documented By: Infusion: 01/04/24 23:33 Dose: Infused Documented By: Admin: 01/04/24 19:33 Dose: 25 mls/hr Documented By: RODRICK Lorazepam (Lorazepam 0.5 Mg Tab) 0.5 mg PO TID PRN PRN Reason: anxiety Stop: 02/03/24 09:41 Last Admin: 01/04/24 21:58 Dose: 0.5 mg Documented By: Admin: 01/04/24 17:18 Dose: 0.5 mg Documented By: Admin: 01/04/24 11:16 Dose: 0.5 mg Documented By: BEULAH Metoprolol Tartrate (Metoprolol Tartrate 50 Mg Tab) 50 mg PO BID [facility] Stop: 02/03/24 09:44 Last Admin: 01/05/24 08:03 Dose: 50 mg Documented By: Admin: 01/04/24 20:20 Dose: 50 mg Documented By: Admin: 01/04/24 11:16 Dose: 50 mg Documented By: BEULAH Pantoprazole Sodium (Pantoprazole 40 Mg Tab) 40 mg PO HS [facility]; Protocol Stop: 02/03/24 20:59 Last Admin: 01/04/24 20:20 Dose: 40 mg Documented By: RODRICK Trazodone HCl (Trazodone Hcl 50 Mg Tab) 50 mg PO [facility] Stop: 02/03/24 20:59 Last Admin: 01/04/24 20:20 Dose: 50 mg Documented By: RODRICK [place] [address] IN/OBS CONSULT LVL 5,80M Patient Type New History Expanded Problem Focused Exam Expanded Problem Focused Medical Decision Making High Complexity Diagnoses Bipolar disorder F31.9 Current episode severity: unspecified Time Spent (min) 90
--- NOTE | 2024-01-05 16:23 | Hospitalist Progress Note ---
Date of Service January 05, 2024 Assessment & Plan (1) Syncope and collapse: Plan: Syncope: Likely secondary to moderate to severe aortic stenosis --CT head:No acute intracranial hemorrhage, midline shift, or mass effect. --Neck CT:No acute fracture or subluxation of the cervical spine. Troponin negative Normal Orthostatics --ECHO: Left ventricular EF 55 to 60%. 21 mm [place] mechanical aortic valve. The aortic valve peak velocity is 3.9 m/s mean gradient 34 mmHg. Mechanical aortic valve gradients are now elevated suggestive of moderate to severe aortic stenosis. Mechanical mitral valve 31 mm [place] mechanical valve. The mean gradient of 3.3 mmHg at heart rate of 73 bpm. Normal prosthetic valve function. Normal inferior vena cava size and collapsibility with sniff indicates a normal right atrial pressure of 3 mm Hg. --Carotid US:Atherosclerosis without hemodynamically significant stenosis. Normal antegrade vertebral flow bilaterally. Normal orthostatics Monitor for arrhythmia Received IV fluids EEG pending Fall precautions Appreciate cardiology input Plan for transesophageal echo tomorrow N.p.o. after midnight Acute Rhabdomyolysis Secondary to Fall/trauma CK levels improved Received IV fluids Hypokalemia Hyponatremia Replete electrolytes as needed Monitor Leukocytosis Unclear source of infection CT chest, abdomen no signs of infection Bio fire negative Blood culture negative to date Urine culture noncontributory Empirically on Zosyn Acute kidney injury Monitor renal function Avoid nephrotoxic's agents as able received IV fluids Cr back to baseline Supratherapeutic INR No acute bleeding issues Resume Coumadin as able Monitor INR: 4.4 today Paroxysmal atrial fibrillation Continue metoprolol Monitor INR Resume Coumadin as able Severe aortic stenosis Severe mitral stenosis H/O rheumatic heart disease 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) Continue home medications Monitor volume status Cardiology on board Abnormal thyroid function test H/O Graves' disease H/O hypothyroidism Elevated TSH, normal free T4 Continue levothyroxine--increase to 125 mcg daily Needs repeat thyroid function test as outpatient GERD Continue PPI Mood disorder Insomnia Continue home medications DVT Px: SCDs INR supratherapeutic Admission and Anticipated Discharge Date Admission Date: January 04, 2024 Subjective Patient is seen and examined at bedside States feeling better today Offers no new complaints Had EEG earlier today Denies any chest pain, dyspnea, dizziness, nausea, vomiting, abdominal pain Review of Systems Review of Systems: All systems reviewed & are unremarkable except as noted in Subjective Physical Exam Physical Exam: Physical Exam: Vitals signs as noted above General Appearance:Moderately built and nourished, +Anxious Head: normocephalic, Atraumatic Eyes: normal inspection, EOMI Neck: supple, Trachea midline Respiratory/Chest: Normal breath sounds, CTA, No accessory muscle use Cardiovascular: Mechanical heart sounds, tachycardia, +murmur Abdomen/GI:Soft, Non tender, Bowel sounds present Extremities/Musculoskeletal:normal inspection, no edema Neurologic/Psych:AAOX3, grossly no focal neurological deficits Skin: normal color, warm Results & Data Results & Data Vital Signs (Past 12 Hours) Vital Signs Temp Pulse Pulse Resp BP Pulse Ox O2 Del Method 01/05/24 15:31 73 01/05/24 15:17 36.4 C L 72 17 163/82 H 100 Room Air 01/05/24 10:41 36.6 C 72 20 167/79 H 100 Room Air 01/05/24 07:00 78 01/05/24 07:00 Room Air 01/05/24 06:59 36.6 C 73 20 130/85 98 Room Air Laboratory Results Short CBC 01/05/24 Range/Units 06:07 WBC 11.82 H (4.8-10.8) K/ul Hgb 11.7 L (12.0-16.0) g/dl Hct 36.5 L (37.0-47.0) % Plt Count 190 (130-400) K/uL BMP 01/04/24 01/05/24 23:51 06:07 Sodium 134 L 136 Potassium 4.8 D 4.5 Chloride 106 106 Carbon Dioxide 23 27 BUN 23 19 Creatinine 1.32 H 0.99 D Glucose 102 H 97 Calcium 8.8 9.0 Cardiac Enzymes 01/05/24 Range/Units 06:07 Total Creatine Kinase 416 H (26-192) U/L Liver Function 01/05/24 Range/Units 06:07 Total Bilirubin 0.5 (0.2-1.0) mg/dl AST 34 (13-39) U/L ALT 34 (7-52) U/L Alkaline Phosphatase 61 (34-104) U/L Albumin 3.8 (3.4-5.0) gm/dl
[2024-01-05] MEDS: DIVALPROEX DELAY RELEASE 250 MG TABEC PO SCH (20:20)
--- NOTE | 2024-01-05 23:05 | Electroencephalogram ---
EEG Procedure Note Date of Service January 05, 2024 Start / End Times Start Time: 09:32 End Time: 09:[address] Chilango Bond History A 63 year old female with syncope. EEG performed for evaluation of epileptiform acitvity. Home Medication List Medication Instructions Recorded Confirmed Type multivitamin (Daily Multi-Vitamin 1 tab PO DAILY 09/01/19 01/04/24 History tablet) diclofenac sodium 1 % topical gel 2 gm topical QID #100 grams 04/07/20 01/04/24 Rx cholecalciferol (vitamin D3) 25 25 mcg PO QAM 11/10/20 01/04/24 History mcg (1,000 unit) capsule (Vitamin D3) amlodipine 2.5 mg tablet 2.5 mg PO QAM #90 tabs 02/23/21 01/04/24 Rx levothyroxine 112 mcg tablet 112 mcg PO QAM #90 tabs 03/05/21 01/04/24 Rx Tumeric 500 mg PO QAM 03/11/21 01/04/24 History ascorbic acid (vitamin C) 500 mg 500 mg PO QAM 03/11/21 01/04/24 History tablet multivitamin 1 tab PO QAM 03/11/21 01/04/24 History omeprazole 20 mg capsule,delayed 20 mg PO HS #90 caps 04/30/21 01/04/24 Rx release trazodone 50 mg tablet 50 mg PO HS #30 tabs 06/08/21 01/04/24 Rx metoprolol tartrate 50 mg tablet 50 mg PO BID #60 tabs 08/15/21 01/04/24 Rx warfarin 5 mg tablet 5 mg PO UD #90 tabs 06/10/22 01/04/24 Rx buspirone 10 mg tablet 10 mg PO BID 01/04/24 01/04/24 History Inpatient Medication List Acetaminophen (Acetaminophen 325 Mg Tab) 650 mg PO Q4H PRN PRN Reason: Pain or Fever Stop: 02/03/24 11:21 Last Admin: 01/05/24 15:25 Dose: 650 mg Documented By: Admin: 01/05/24 06:46 Dose: 650 mg Documented By: Admin: 01/04/24 19:38 Dose: 650 mg Documented By: RODRICK Amlodipine Besylate (Amlodipine Besylate 5 Mg Tab) 2.5 mg PO QAM ALEX Stop: 02/04/24 08:59 Last Admin: 01/05/24 08:03 Dose: 2.5 mg Documented By: MILADY Buspirone HCl (Buspirone 5 Mg Tab) 10 mg PO BID [facility] Stop: 02/03/24 09:44 Last Admin: 01/05/24 20:20 Dose: 10 mg Documented By: [id number] Admin: 01/05/24 08:04 Dose: 10 mg Documented By: Admin: 01/04/24 20:20 Dose: 10 mg Documented By: Admin: 01/04/24 11:17 Dose: 10 mg Documented By: BEULAH Divalproex Sodium (Divalproex Delay Release 250 Mg Tabec) 250 mg PO HS [facility] Stop: 02/04/24 20:59 Last Admin: 01/05/24 20:20 Dose: 250 mg Documented By: [id number] Piperacillin Sod/Tazobactam (Sod 4.5 gm/ Dextrose) 100 mls @ 25 mls/hr IV Q8H [facility]; Protocol Stop: 01/06/24 18:59 Last Infusion: 01/05/24 22:46 Dose: Infused Documented By: [id number] Admin: 01/05/24 18:34 Dose: 25 mls/hr Documented By: MRDiana Infusion: 01/05/24 16:00 Dose: Infused Documented By: Admin: 01/05/24 12:00 Dose: 25 mls/hr Documented By: Infusion: 01/05/24 08:01 Dose: Infused Documented By: Admin: 01/05/24 03:05 Dose: 25 mls/hr Documented By: Infusion: 01/04/24 23:33 Dose: Infused Documented By: Admin: 01/04/24 19:33 Dose: 25 mls/hr Documented By: RODRICK Lorazepam (Lorazepam 0.5 Mg Tab) 0.5 mg PO TID PRN PRN Reason: anxiety Stop: 02/03/24 09:41 Last Admin: 01/04/24 21:58 Dose: 0.5 mg Documented By: Admin: 01/04/24 17:18 Dose: 0.5 mg Documented By: Admin: 01/04/24 11:16 Dose: 0.5 mg Documented By: BEULAH Metoprolol Tartrate (Metoprolol Tartrate 50 Mg Tab) 50 mg PO BID ALEX Stop: 02/03/24 09:44 Last Admin: 01/05/24 20:21 Dose: 50 mg Documented By: [id number] Admin: 01/05/24 08:03 Dose: 50 mg Documented By: Admin: 01/04/24 20:20 Dose: 50 mg Documented By: Admin: 01/04/24 11:16 Dose: 50 mg Documented By: BEULAH Pantoprazole Sodium (Pantoprazole 40 Mg Tab) 40 mg PO [facility]; Protocol Stop: 02/03/24 20:59 Last Admin: 01/05/24 20:21 Dose: 40 mg Documented By: [id number] Admin: 01/04/24 20:20 Dose: 40 mg Documented By: RODRICK Trazodone HCl (Trazodone Hcl 50 Mg Tab) 50 mg PO HS [facility] Stop: 02/03/24 20:59 Last Admin: 01/05/24 20:20 Dose: 50 mg Documented By: [id number] Admin: 01/04/24 20:20 Dose: 50 mg Documented By: RODRICK Discontinued Medications Sodium Chloride (Nss) 1,000 mls @ 999 mls/hr IV .Q1H1M ONE Stop: 01/04/24 04:43 Last Infusion: 01/04/24 06:00 Dose: Infused Documented By: Admin: 01/04/24 04:34 Dose: 999 mls/hr Documented By: HB Acetaminophen (Ofirmev) 1,000 mg in 100 mls @ 400 mls/hr IV NOW STA Stop: 01/04/24 03:58 Last Infusion: 01/04/24 04:50 Dose: Infused Documented By: Admin: 01/04/24 04:34 Dose: 400 mls/hr Documented By: HB Sodium Chloride (Nss) 1,000 mls @ 100 mls/hr IV .Q10H ALEX Stop: 02/03/24 06:29 Last Infusion: 01/05/24 02:18 Dose: Infused Documented By: Admin: 01/04/24 23:21 Dose: 100 mls/hr Documented By: Infusion: 01/04/24 23:21 Dose: Infused Documented By: Admin: 01/04/24 17:19 Dose: 125 mls/hr Documented By: Infusion: 01/04/24 14:41 Dose: Infused Documented By: Admin: 01/04/24 06:41 Dose: 125 mls/hr Documented By: HB Cefepime HCl (Maxipime) 2,000 mg in 20 mls @ 5 mls/min IV NOW STA; Protocol Stop: 01/04/24 06:31 Last Admin: 01/04/24 07:14 Dose: 5 mls/min Documented By: JOSE ALFREDO Potassium Chloride (K Víctor / Wtr) 10 meq in 100 mls @ 100 mls/hr IV Q1H ALEX Stop: 01/04/24 13:21 Last Infusion: 01/04/24 13:34 Dose: Infused Documented By: Admin: 01/04/24 12:33 Dose: 100 mls/hr Documented By: Infusion: 01/04/24 12:33 Dose: Infused Documented By: Admin: 01/04/24 11:42 Dose: 100 mls/hr Documented By: BEULAH Ceftriaxone Sodium 2,000 mg/ (Dextrose) 50 mls @ 100 mls/hr IV Q24H ALEX; Protocol Stop: 01/06/24 11:29 Last Admin: 01/04/24 12:27 Dose: Not Given Documented By: BEULAH Piperacillin Sod/Tazobactam (Sod 4.5 gm/ Dextrose) 100 mls @ 200 mls/hr IV NOW ONE; Protocol Stop: 01/04/24 13:14 Last Infusion: 01/04/24 14:09 Dose: Infused Documented By: Admin: 01/04/24 13:39 Dose: 200 mls/hr Documented By: BEULAH Sodium Chloride (Nss) 1,000 mls @ 150 mls/hr IV .Q6H40M ONE Stop: 01/05/24 08:50 Last Infusion: 01/05/24 09:00 Dose: Infused Documented By: Admin: 01/05/24 02:18 Dose: 150 mls/hr Documented By: RODRICK Ioversol (Optiray 320 125ml) 117 ml IV ONCE ONE Stop: 01/04/24 05:11 Last Admin: 01/04/24 05:10 Dose: 117 ml Documented By: SONYA Levothyroxine Sodium (Levothyroxine Sodium 112 Mcg Tablet) 112 mcg PO QAM ALEX Stop: 02/03/24 09:44 Last Admin: 01/04/24 10:57 Dose: Not Given Documented By: BEULAH Levothyroxine Sodium (Levothyroxine Sodium 112 Mcg Tablet) 112 mcg PO DAILYBB [facility] Stop: 02/03/24 09:59 Last Admin: 01/05/24 05:36 Dose: 112 mcg Documented By: Admin: 01/04/24 11:41 Dose: 112 mcg Documented By: BEULAH Potassium Chloride (Potassium Chloride Crtab 20 Meq Tabcr) 40 meq PO ONE ONE Stop: 01/04/24 07:53 Last Admin: 01/04/24 08:52 Dose: 40 meq Documented By: JOSE ALFREDO Potassium Chloride (Potassium Chloride Crtab 20 Meq Tabcr) 20 meq PO ONE ONE Stop: 01/04/24 20:01 Last Admin: 01/04/24 20:20 Dose: 20 meq Documented By: RODRICK Sodium Chloride (Sodium Chloride 0.65% Na Soln 45 Ml ([place])) Confirm Administered Dose 225 sprays .ROUTE .STK-MED ONE Stop: 01/04/24 22:37 Last Admin: 01/04/24 23:22 Dose: 225 sprays Documented By: RODRICK Description This is a 21 electrode EEG with a single channel dedicated to limited EKG. The electrodes were placed in accordance with the International 10-20 system. REPORT: At the onset of the EEG, the patient is awake. The background activity consist of 10-11 Hz, persistent, posteriorly dominant, moderate amplitude, symmetric and rhythmic activity that is reactive to eye opening. Anteriorly, it consist of a mixture of low voltage indeterminate activity and 15-25 Hz, persistent, low amplitude, symmetric and rhythmic activity. Stepwise intermittent photic stimulation (1-21 Hz) and hyperventilation (3 minutes, good effort) do not induce any abnormalities. Drowsiness is characterized by low amplitude mixed frequency activity, roving eye movements, and decreased eye blinking and muscle artifact. Interpretation IMPRESSION: This is a normal awake and drowsy routine EEG. There is no evidence of focal slowing or epileptiform activity.
[2024-01-06 05:07] LABS: Hematocrit (blood only) 39.6 % (37.0-47.0); Hemoglobin 12.9 g/dl (12.0-16.0); Mean Corpuscular Hgb Conc 32.6 g/dL (32.0-36.0); Mean Platelet Volume 11.4 fL (9.4-12.4); Platelet Count 204 K/uL (130-400); RDW Coefficient of Variation 13.5 % (11.5-14.5); RDW Standard Deviation 43.8 fL (36.4-46.3); Red Blood Count 4.45 M/uL (4.20-5.40); White Blood Count 12.02 K/ul (4.8-10.8)
[2024-01-06 05:21] LABS: Albumin Globulin Ratio 1.4 (0.9-2); Albumin Level 4.2 gm/dl (3.4-5.0); BUN Creatinine Ratio 18.1 (10-20); Bilirubin,Total 0.6 mg/dl (0.2-1.0); Calcium 9.9 mg/dl (8.6-10.3); Creatinine Clr Calc Pharmacy 56.4 ml/min; Est GFR (African American) 65.9 ml/min; Est GFR (Non-African American) 56.9 ml/min; Globulin 3.1 gm/dl (2.5-4.0); Magnesium 1.9 mg/dl (1.7-2.4); Potassium 4.5 mmol/L (3.5-5.1); Total Protein 7.3 gm/dl (6.0-8.3)
[2024-01-06] MEDS: LEVOTHYROXINE SODIUM 125 MCG TABLET PO SCH (05:36)
[2024-01-06 05:39] LABS: INR 1.9 (0.9-1.1); Prothrombin Time 19.5 Seconds (9.0-12.0)
--- NOTE | 2024-01-06 07:32 | Anesthesiology Consultation ---
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 Consults Requested none ASA ASA3 Proposed Anesthesia Anesthesia Type: MAC Risk / Benefits Reviewed With: PT / POA / Parent / Guardian, Accepts Plan and Informed Consent Obtained History Surgery Operation Date: 01/06/24 07:45 Proposed Procedures p Transesophageal Echo - Jerardo Borges, Height/Weight Height: 5 ft 4 in Weight: 78.8 kg Allergies Allergy/AdvReac Type Severity Reaction Status Date / Time ciprofloxacin [From Cipro] Allergy Mild drug Verified 05/04/21 10:26 interaction with lexapro benzocaine Allergy Unknown UNKNOWN Verified 05/04/21 10:26 NSAIDS (Non-Steroidal Allergy Unknown NEEDS TO Verified 05/04/21 10:26 Anti-Inflamma AVOID DUE TO GLOMERULONEPRITIS ceftriaxone AdvReac Intermediate hallucinati Verified 05/04/21 10:26 ons Medications Home Medications Medication Instructions Recorded Confirmed Last Taken multivitamin (Daily Multi-Vitamin 1 tab PO DAILY 09/01/19 01/04/24 03/11/21 tablet) diclofenac sodium 1 % topical gel 2 gm topical QID #100 grams 04/07/20 01/04/24 01/03/24 cholecalciferol (vitamin D3) 25 25 mcg PO QAM 11/10/20 01/04/24 01/03/24 07:00 mcg (1,000 unit) capsule (Vitamin D3) amlodipine 2.5 mg tablet 2.5 mg PO QAM #90 tabs 02/23/21 01/04/24 01/03/24 07:00 levothyroxine 112 mcg tablet 112 mcg PO QAM #90 tabs 03/05/21 01/04/24 01/03/24 Tumeric 500 mg PO QAM 03/11/21 01/04/24 03/11/21 ascorbic acid (vitamin C) 500 mg 500 mg PO QAM 03/11/21 01/04/24 03/11/21 tablet multivitamin 1 tab PO QAM 03/11/21 01/04/24 03/11/21 omeprazole 20 mg capsule,delayed 20 mg PO HS #90 caps 04/30/21 01/04/24 12/24/23 release trazodone 50 mg tablet 50 mg PO HS #30 tabs 06/08/21 01/04/24 01/03/24 metoprolol tartrate 50 mg tablet 50 mg PO BID #60 tabs 08/15/21 01/04/24 01/03/24 warfarin 5 mg tablet 5 mg PO UD #90 tabs 06/10/22 01/04/24 01/03/24 buspirone 10 mg tablet 10 mg PO BID 01/04/24 01/04/24 Unknown Active Medications Generic Name Dose Route Start Last Admin Trade Name Freq PRN Reason Stop Dose Admin Acetaminophen 650 mg 01/04/24 11:22 01/06/24 04:47 Acetaminophen 325 Mg Tab PO 02/03/24 11:21 650 mg Q4H PRN Administration Pain or Fever Amlodipine Besylate 2.5 mg 01/05/24 09:00 01/05/24 08:03 Amlodipine Besylate 5 Mg Tab PO 02/04/24 08:59 2.5 mg QAM ALEX Administration Buspirone HCl 10 mg 01/04/24 09:45 01/05/24 20:20 Buspirone 5 Mg Tab PO 02/03/24 09:44 10 mg BID ALEX Administration Divalproex Sodium 250 mg 01/05/24 21:00 01/05/24 20:20 Divalproex Delay Release 250 Mg Tabec PO 02/04/24 20:59 250 mg HS ALEX Administration Piperacillin Sod/Tazobactam 100 mls @ 25 mls/hr 01/04/24 19:00 01/06/24 03:04 Sod 4.5 gm/ Dextrose IV 01/06/24 18:59 25 mls/hr Q8H ALEX Administration Protocol Levothyroxine Sodium 125 mcg 01/06/24 06:30 01/06/24 05:36 Levothyroxine Sodium 125 Mcg Tablet PO 02/05/24 06:29 125 mcg DAILYBB ALEX Administration Lorazepam 0.5 mg 01/04/24 09:42 01/05/24 23:26 Lorazepam 0.5 Mg Tab PO 02/03/24 09:41 0.5 mg TID PRN Administration anxiety Metoprolol Tartrate 50 mg 01/04/24 09:45 01/05/24 20:21 Metoprolol Tartrate 50 Mg Tab PO 02/03/24 09:44 50 mg BID ALEX Administration Pantoprazole Sodium 40 mg 01/04/24 21:00 01/05/24 20:21 Pantoprazole 40 Mg Tab PO 02/03/24 20:59 40 mg HS ALEX Administration Protocol Trazodone HCl 50 mg 01/04/24 21:00 01/05/24 20:20 Trazodone Hcl 50 Mg Tab PO 02/03/24 20:59 50 mg HS ALEX Administration NPO Date Last Intake of Fluids: 01/06/24 Time Last Intake of Fluids: 06:00 Last Intake of Fluids Comment: sip with meds Date Last Intake of Solids: 01/05/24 Past Medical History Medical History Osteoarthritis GERD (gastroesophageal reflux disease) Depression Hypertension Colon polyps Graves disease Paroxysmal A-fib happened with valve replacement, she was in normal sinus when discharged form hospital Hypothyroidism Glomerulonephritis Endometriosis Benzodiazepine overdose patient thought she had taken lorazepam and found that she didnot take it. it was confirmed with blood work Exercise / Class Metabolic Activity II 4-5 Yardwork/Stairs/Walk up hill Past Family History Family History Grandfather Myocardial infarction Brother Bipolar disorder Denies family history of Ovarian cancer Prostate cancer Breast cancer Colorectal cancer Past Surgical History Surgical History History of bunionectomy of left great toe H/O colonoscopy (~02/25/12) History of tubal ligation H/O mitral valve replacement (09/2014) aortic and mitral valve replaced simultaneously, [facility], [place] mechanical valve Aortic valve replaced (09/2014) September 2014, [facility], mitral and aortic valve replacements with [place] mechanical valve Past Anesthesia History No Hx of Anesthesia Complications and No Family Hx of Anesthesia Complications History of PONV No Hx of PONV and No Hx of Motion Sickness Social History Smoking Status: Former smoker Smoking cigarettes per day: 20 Do You Dip or Chew Tobacco: No Hx Alcohol Use: Yes Alcohol type: beer alcohol intake frequency: a few times a week Hx Substance Use: No substance use type: does not use Physical Exam Vital Signs Last Vital Signs Temp 36.6 C 01/06/24 02:59 Pulse 84 01/06/24 07:21 Resp 18 01/06/24 07:21 BP 157/85 H 01/06/24 07:21 Pulse Ox 97 01/06/24 07:21 O2 Del Method Room Air 01/06/24 07:21 Constitutional no acute distress ENMT Mouth: no chipped teeth and no loose teeth Thyromental Distance: > or= 3.5 Finger Breadths Mallampati Class: II Neck normal visual inspection and trachea midline; neck extension not limited Respiratory normal respiratory effort; no respiratory distress Auscultation: lungs clear to auscultation bilaterally; no crackles, no rhonchi and no wheezes Cardiovascular Rate/Rhythm: regular rate and regular rhythm Heart Sounds: no gallop, no murmur and no cardiac rub Musculoskeletal Head/Neck/Chest: full ROM of neck Neurologic moves all extremities and awake Psychiatric Orientation: alert and oriented x 3 Testing Laboratory Results 01/06/24 04:41 01/06/24 04:41 PT 19.5 Seconds (9.0-12.0) H 01/06/24 04:41 INR 1.9 (0.9-1.1) H 01/06/24 04:41 APTT 39 Seconds (21-31) H 01/04/24 Unknown Urine Color Dark Yellow 01/04/24 04:10 Urine Appearance Cloudy (Clear) A 01/04/24 04:10 Urine pH 5.0 (4.5-7.5) 01/04/24 04:10 Ur Specific [place] 1.033 (1.000-1.030) H 01/04/24 04:10 Urine Protein 1+ (Negative) H 01/04/24 04:10 Urine Glucose (UA) Negative (Negative) 01/04/24 04:10 Urine Ketones 1+ (Negative) H 01/04/24 04:10 Urine Nitrite Negative (Negative) 01/04/24 04:10 Ur Leukocyte Esterase 2+ (Negative) H 01/04/24 04:10 Urine WBC (Auto) 0-5 /hpf (0-5) 01/04/24 04:10 Urine RBC (Auto) 11-20 /hpf (0-2) H 01/04/24 04:10 U Hyaline Cast (Auto) >20 /lpf (0-2) H 01/04/24 04:10 U Epithel Cells (Auto) 3-5 /hpf (0-2) H 01/04/24 04:10 Urine Bacteria (Auto) None Seen (None Seen) 01/04/24 04:10 01/04/24 04:25 Aerobic Blood Culture - Preliminary Blood No growth in Aerobic bottle after 48 hours. Anaerobic Blood Culture - Preliminary No growth in Anaerobic bottle after 48 hours. 01/04/24 04:17 Aerobic Blood Culture - Preliminary Blood No growth in Aerobic bottle after 48 hours. Anaerobic Blood Culture - Preliminary No growth in Anaerobic bottle after 48 hours. 01/04/24 04:24 Urine Culture - Final Urine,Clean Catch More than three types of organisms present, all moderate counts mixed probable skin west. No further identifications or sensitivities to follow.
[2024-01-06] MEDS: BENZOCAINE/TETRACAIN/BUTAM 50 APPLN/5 GM CAN EXT ONE (08:02)
--- NOTE | 2024-01-06 08:08 | History & Physical Bridge Note ---
Date of Service January 06, 2024 History & Physical Bridge Note I have examined the patient, reviewed the History & Physical and in the interval since the performance of the History & Physical I have noted the following changes of clinical significance: no changes noted. Informed consent for ARNOLDO obtained. Pt elects to proceed.
[2024-01-06] MEDS ORDERED: PHENYLEPHRINE 100MCG/ML 10ML SYR IV ONE (08:55)
[2024-01-06] MEDS ORDERED: LIDOCAINE 2% 2 ML VIAL/AMP(20MG/ML) INFIL ONE (08:55)
[2024-01-06] MEDS ORDERED: PROPOFOL IV EMULSION 10 MG/ML 20 ML VIAL IV ONE (08:55)
--- NOTE | 2024-01-06 08:59 | Post Operative Brief Note ---
Cardiology Brief Post Op Date of Surgery January 06, 2024 Pre & Post Diagnosis Operation Date: 01/06/24 07:45 Procedure Preprocedure diagnosis: Syncope, suspected prosthetic aortic valve stenosis Postprocedure diagnosis: Prosthetic aortic valve stenosis Transesophageal echocardiogram procedure: After informed consent was obtained a timeout was performed the patient was sedated with the assistance of the anesthesia service. The prosthetic valve leaflets are suboptimally visualized due to acoustic shadowing, however hypomobility appears to be present. No significant prosthetic aortic valve regurgitation present. The mitral valve mechanical prosthesis was well-visualized with normal prosthetic leaflet excursion and physiologic degree of mitral regurgitation. Recommendations: INR came down from 4.4-1.9 with having held Coumadin overnight. Proceed with heparin bridge as goal INR is 2.5-3.5. Will need to confirm her home Coumadin dose and restart Coumadin later today. Learning Developer Jerardo Borges DO Armature Tester Ana Castillo, RCS Estimated Blood Loss 0 Findings Consistent with Post-Op Diagnosis Anesthesia Type MAC
--- NOTE | 2024-01-06 09:54 | Anesthesiology Progress Note ---
Date of Service January 06, 2024 Anesthesia Post Procedure Vital Signs Vital Signs: Temp Pulse Pulse Pulse Resp BP BP 01/06/24 09:32 36.4 C L 73 74 14 138/80 01/06/24 09:05 78 16 123/80 01/06/24 08:50 73 16 121/66 01/06/24 07:21 84 18 157/85 H 01/06/24 07:00 80 01/06/24 07:00 01/06/24 02:59 36.6 C 78 20 148/81 H 01/06/24 00:38 63 01/06/24 00:32 75 20 149/84 H 01/05/24 23:15 36.6 C 78 18 183/77 H 01/05/24 19:31 36.8 C 92 H 20 165/90 H 01/05/24 15:31 73 01/05/24 15:17 36.4 C L 72 17 163/82 H 01/05/24 10:41 36.6 C 72 20 167/79 H Pulse Ox O2 Del Method 01/06/24 09:32 98 Room Air 01/06/24 09:05 99 Room Air 01/06/24 08:50 99 Room Air 01/06/24 07:21 97 Room Air 01/06/24 07:00 01/06/24 07:00 Room Air 01/06/24 02:59 99 Room Air 01/06/24 00:38 01/06/24 00:32 97 Room Air 01/05/24 23:15 98 Room Air 01/05/24 19:31 99 Room Air 01/05/24 15:31 01/05/24 15:17 100 Room Air 01/05/24 10:41 100 Room Air Pain Intensity Head: Pain Intensity: 10 Right Shoulder: Pain Intensity: 4 Transfer of Care Handoff Completed per policy Notes Mental Status: alert / awake / arousable and participated in evaluation Patient Amnestic to Procedure: Yes Nausea / Vomiting: adequately controlled Pain: adequately controlled Airway Patency, RR, SpO2: stable & adequate BP & HR: stable & adequate Hydration State: stable & adequate Anesthetic Complications: no major complications apparent
[2024-01-06] MEDS: Heparin IV Adult Wt-Based Standard *NO* INITIAL Bolus Protocol IV SCH (10:00)
[2024-01-06] MEDS: HEPARIN SODIUM/DEXTROSE 25,000 UNITS/500 ML BAG IV SCH (10:18)
--- NOTE | 2024-01-06 13:11 | Electrocardiogram Report ---
Test Reason : Blood Pressure : / mmHG Vent. Rate : 077 BPM Atrial Rate : 077 BPM P-R Int : 166 ms QRS Dur : 124 ms QT Int : 402 ms P-R-T Axes : 061 028 051 degrees QTc Int : 454 ms Normal sinus rhythm Possible Left atrial enlargement Right bundle branch block Nonspecific ST abnormality Abnormal ECG When compared with ECG of 05-JAN-2024 05:48, RSR' pattern in V1 has replaced Right bundle branch block Confirmed by Clay Batista ([id number]) on 01/06/2024 1:11:33 PM Referred By: REFERRED SELF Confirmed By:Clay Batitsa
--- NOTE | 2024-01-06 14:24 | Cardiology Progress Note ---
Date of Service January 06, 2024 Assessment & Plan (1) Syncope and collapse: Plan: Impression: Syncope and collapse in the setting of recent complex sinus infection History of Rheumatic heart disease with mitral stenosis and aortic valve stenosis prompting mechanical mitral valve replacement and mechanical aortic valve replacement, [address] [place] AVR, [address] [place] MVR Supratherapeutic INR, now with subtherapeutic INR Comment: History reviewed extensively including review of the index operative report from [facility] dated 10/02/2015. The peak continuous-wave Doppler velocity across the [place] aortic valve on the echocardiogram proceeded to surgery dated 07/07/2015 was 4.1 m/s. Postoperatively, in 11/2015, peak CW velocity across aortic valve= 2.8 m/s 02/2022, peak CW velocity across the aortic valve= 3.4 m/s 07/08/2022, peak CW velocity across aortic valve= 3.31 Pateint underwent ARNOLDO today: The Left Ventricular Ejection Fraction = 55-60%. Mechanical mitral valve prosthesis is well-visualized with normal function. The mechanical aortic valve prosthesis is suboptimally visualized due to the presence of acoustic shadowing as would be expected with this particular prosthesis. The prosthetic valve leaflets are suboptimally visualized due to the presence of acoustic shadowing, but appear to be mobile. No significant prosthetic aortic valve regurgitation is present. Valvular gradients could not be obtained via transesophageal echocardiogram. Additional images were therefore obtained via transthoracic echocardiography, with peak continuous-wave Doppler velocity across the aortic valve prosthesis of 3.3 m/s, mean gradient 22.7 mmHg. The CW velocities across the aortic valve prosthesis are therefore mildly elevated and indeterminate for prosthetic stenosis. Compared to the images obtained at the time of the previous transthoracic echocardiogram performed 2 days ago on 01/04/2024, the peak continuous-wave Doppler velocity across the aortic valve prosthesis at that time was in the range of 3.7 to 3.9 m/s. The velocity obtained today is relatively unchanged compared to that which was observed as an outpatient in February, and in June,, and the higher velocities noted two days ago could not be reproduced on the present study. Plan: INR which had been above goal yesterday of 4.4 is now below goal of 1.9. INR goal is 2.5-3.5 given history of mechanical aortic valve and mitral valve prostheses. Start heparin infusion for bridge therapy, weight-based protocol without bolus Patient's home Coumadin dose is 10 mg on Friday, Wednesdays, and Fridays, and 7.5 mg on the other days, will therefore proceed with 7.5 mg today and recheck INR tomorrow. Question if the patient's syncope was vasovagal in the setting of acute noncardiac illness. She does however have a history of elevated aortic valve prosthetic gradients that are indeterminate for stenosis. These may have been acutely elevated at the time of the transthoracic echocardiogram 2 days ago in the setting of hyperdynamic function and noncardiac illness as the higher velocities of 3.9 m/s could not be reproduced today, and the velocities noted today are similar to those which were noted in 2023. The velocities however are still elevated and although perhaps not the cause of her recurrent syncope, require further evaluation. Will proceed with fluoroscopy in the [employer] to further evaluate prosthetic leaflet excursion. Differential diagnosis includes patient prosthetic mismatch with noted small LV outflow tract velocity, however the postoperative velocities were below 3 m/s as noted in 2016. Progressive mild pannus formation is another alternative. Futu re considerations include outpatient cardiac CT with valve protocol to evaluate for pannus. Admission and Anticipated Discharge Date Admission Date: January 04, 2024 Subjective Patient seen in follow up prior to, during, and after transesophageal echocardiogram. Patient has since been reassessed in room before 50, post transesophageal echocardiogram. She is feeling well today. Her sinus congestion is trending toward improvement. Telemetry reveals sinus rhythm in the 60s. Physical Exam Constitutional: WD/WN, vitals as above Cardiovascular: RRR, no murmur, no edema Porter prosthetic heart sounds noted, no murmur Gastrointestinal (Abdomen): normal bowel sounds, soft, nontender, no hepatosplenomegaly Neurologic: PERRL, EOMI, accommodation nl, no face palsy, no dysarthria Results & Data Vital Signs (Past 12 Hours) Vital Signs Temp Pulse Pulse Pulse Resp BP BP 01/06/24 10:55 36.8 C 73 20 114/70 01/06/24 09:50 77 17 152/87 H 01/06/24 09:32 36.4 C L 73 74 14 138/80 01/06/24 09:05 78 16 123/80 01/06/24 08:50 73 16 121/66 04/23/24 07:21 84 18 157/85 H 01/06/24 07:00 80 01/06/24 07:00 01/06/24 02:59 36.6 C 78 20 148/81 H Pulse Ox O2 Del Method 01/06/24 10:55 97 Room Air 01/06/24 09:50 Room Air 01/06/24 09:32 98 Room Air 01/06/24 09:05 99 Room Air 01/06/24 08:50 99 Room Air 01/06/24 07:21 97 Room Air 01/06/24 07:00 01/06/24 07:00 Room Air 01/06/24 02:59 99 Room Air Laboratory Results Cardiac Enzymes 01/06/24 Range/Units 04:41 AST 34 (13-39) U/L Coagulation 01/06/24 Range/Units 04:41 PT 19.5 H (9.0-12.0) Seconds CBC 01/06/24 Range/Units 04:41 WBC 12.02 H (4.8-10.8) K/ul RBC 4.45 (4.20-5.40) M/uL Hgb 12.9 (12.0-16.0) g/dl Hct 39.6 (37.0-47.0) % Plt Count 204 (130-400) K/uL Comprehensive Metabolic Panel 01/06/24 Range/Units 04:41 Sodium 134 L (136-145) mmol/L Potassium 4.5 (3.5-5.1) mmol/L Chloride 101 (98-107) mmol/L Carbon Dioxide 26 (21-32) mmol/L BUN 19 (6-23) mg/dl Creatinine 1.05 (0.6-1.2) mg/dl Glucose 102 H (70-99(Fasting)) mg/dl Calcium 9.9 (8.6-10.3) mg/dl AST 34 (13-39) U/L ALT 36 (7-52) U/L Alkaline Phosphatase 74 (34-104) U/L Total Protein 7.3 (6.0-8.3) gm/dl Albumin 4.2 (3.4-5.0) gm/dl Intake and Output 01/05/24 01/06/24 01/06/24 22:59 06:59 14:59 Intake Total 1974 340 / 340 Balance 1973 340 / 340 Intake: IV 200 / 1300 100 / 100 Piperacillin/Tazobactam 4.5 gm 200 / 300 100 / 100 In Dextrose 5% Mini-B 100 ml @ 25 mls/hr IV Q8H [facility] Rx#: [id number] Oral 575 / 675 240 / 240 Other: Other Intake Source Patient is NPO # Unmeasured Voids 1 2 1 Weight 78.8 kg 78.8 kg Weight Measurement Method Standing Scale Patient Weight 01/07/24 06:59 Weight 78.8 kg
--- NOTE | 2024-01-06 15:06 | Hospitalist Progress Note ---
Date of Service January 06, 2024 Assessment & Plan (1) Syncope and collapse: Plan: Syncope: Likely secondary to moderate to severe aortic stenosis --CT head:No acute intracranial hemorrhage, midline shift, or mass effect. --Neck CT:No acute fracture or subluxation of the cervical spine. Troponin negative Normal Orthostatics --ECHO: Left ventricular EF 55 to 60%. 21 mm [place] mechanical aortic valve. The aortic valve peak velocity is 3.9 m/s mean gradient 34 mmHg. Mechanical aortic valve gradients are now elevated suggestive of moderate to severe aortic stenosis. Mechanical mitral valve 31 mm [place] mechanical valve. The mean gradient of 3.3 mmHg at heart rate of 73 bpm. Normal prosthetic valve function. Normal inferior vena cava size and collapsibility with sniff indicates a normal right atrial pressure of 3 mm Hg. --Carotid US:Atherosclerosis without hemodynamically significant stenosis. Normal antegrade vertebral flow bilaterally. --ARNOLDO: Mechanical mitral valve prosthesis well-visualized with normal function. Mechanical aortic valve prosthesis suboptimally visualized due to presence of acoustic shadowing as would be expected with this particular prosthesis but appeared to be mobile. No significant prosthetic aortic valve regurgitation is present. Valvular gradients could not be obtained. --EEG:This is a normal awake and drowsy routine EEG. There is no evidence of fo heriberto slowing or epileptiform activity. Normal orthostatics Monitor for arrhythmia Received IV fluids Fall precautions Appreciate cardiology input Cardiology plans to proceed with fluoroscopy to further evaluate prosthetic leaflet excursion. Patient may need outpatient cardiac CT with valve protocol to evaluate for pannus Acute Rhabdomyolysis Secondary to Fall/trauma CK levels improved Received IV fluids Hypokalemia Hyponatremia Replete electrolytes as needed Monitor Leukocytosis Unclear source of infection CT chest, abdomen no signs of infection Bio fire negative Blood culture negative to date Urine culture noncontributory Empirically on Zosyn Acute kidney injury Monitor renal function Avoid nephrotoxic's agents as able received IV fluids Cr back to baseline Supratherapeutic INR No acute bleeding issues Resume Coumadin today Monitor INR: 4.4>>1.9 Started on IV heparin bridge Adjust Coumadin dose as needed Paroxysmal atrial fibrillation Continue metoprolol Monitor INR Continue Coumadin Severe aortic stenosis Severe mitral stenosis H/O rheumatic heart disease 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) Continue home medications Monitor volume status Cardiology on board Abnormal thyroid function test H/O Graves' disease H/O hypothyroidism Elevated TSH, normal free T4 Continue levothyroxine--increase to 125 mcg daily Needs repeat thyroid function test as outpatient GERD Continue PPI Mood disorder Insomnia Continue home medications DVT Px: Coumadin, IV heparin Admission and Anticipated Discharge Date Admission Date: January 04, 2024 Subjective Patient is seen and examined at bedside Had ARNOLDO earlier today Reports some cough with expectoration after the ARNOLDO Otherwise no complaints Patient's family at bedside Denies any chest pain, dyspnea, dizziness, nausea, vomiting, abdominal pain Review of Systems Review of Systems: All systems reviewed & are unremarkable except as noted in Subjective Physical Exam Physical Exam: Physical Exam: Vitals signs as noted above General Appearance:Moderately built and nourished, +Anxious Head: normocephalic, Atraumatic Eyes: normal inspection, EOMI Neck: supple, Trachea midline Respiratory/Chest: Normal breath sounds, CTA, No accessory muscle use Cardiovascular: Mechanical heart sounds, +murmur Abdomen/GI:Soft, Non tender, Bowel sounds present Extremities/Musculoskeletal:normal inspection, no edema Neurologic/Psych:AAOX3, grossly no focal neurological deficits Skin: normal color, warm Results & Data Results & Data Vital Signs (Past 12 Hours) Vital Signs Temp Pulse Pulse Pulse Resp BP BP 01/06/24 14:35 36.7 C 71 18 128/77 01/06/24 10:55 36.8 C 73 20 114/70 01/06/24 09:50 77 17 152/87 H 01/06/24 09:32 36.4 C L 73 74 14 138/80 01/06/24 09:05 78 16 123/80 01/06/24 08:50 73 16 121/66 01/06/24 07:21 84 18 157/85 H 01/06/24 07:00 80 01/06/24 07:00 01/06/24 02:59 36.6 C 78 20 148/81 H Pulse Ox O2 Del Method 01/06/24 14:35 96 Room Air 01/06/24 10:55 97 Room Air 01/06/24 09:50 Room Air 01/06/24 09:32 98 Room Air 01/06/24 09:05 99 Room Air 01/06/24 08:50 99 Room Air 01/06/24 07:21 97 Room Air 01/06/24 07:00 01/06/24 07:00 Room Air 01/06/24 02:59 99 Room Air Laboratory Results Short CBC 01/06/24 Range/Units 04:41 WBC 12.02 H (4.8-10.8) K/ul Hgb 12.9 (12.0-16.0) g/dl Hct 39.6 (37.0-47.0) % Plt Count 204 (130-400) K/uL BMP 01/06/24 04:41 Sodium 134 L Potassium 4.5 Chloride 101 Carbon Dioxide 26 BUN 19 Creatinine 1.05 Glucose 102 H Calcium 9.9 Cardiac Enzymes 01/06/24 Range/Units 04:41 Total Creatine Kinase 270 H (26-192) U/L Liver Function 01/06/24 Range/Units 04:41 Total Bilirubin 0.6 (0.2-1.0) mg/dl AST 34 (13-39) U/L ALT 36 (7-52) U/L Alkaline Phosphatase 74 (34-104) U/L Albumin 4.2 (3.4-5.0) gm/dl
--- NOTE | 2024-01-06 15:34 | Communication Note ---
Date of Service: January 06, 2024 The mechanical aortic valve prosthesis in the mechanical aortic valve prosthesis visualized with the use of fluoroscopy. Normal leaflet motion observed. Emma Borges DO
--- NOTE | 2024-01-06 15:45 | Psychiatric Progress Note ---
Date of Service January 06, 2024 Impression / Recommendations Impression The patient current presentation appears to be multifactorial: Untreated mood disorder, recent use of steroids (with impact on her mood and sleep pattern), infection, chronic pain. She was initially reluctant to start psychotropic medications but agreed to a trial of low-dose Depakote. Responded well to first dose of the medication. NO evidence of withdrawal symptoms. Overall, I spent a total of 30 minutes with this case, including review of chart,direct evaluation of the patient, counseling the patient, communication with family, risk assessment, and documentation. (1) Bipolar disorder: Plan Psychiatry sign off Continue Depakote scheduled (take every day) 250mg PO HS Interval History Identifying Information Ms. Worthy is a 63 yo white female with a history of mood disorder and multiple chronic medical conditions including mechanical aortic valve replacement (2014) with chronic anticoagulation therapy, iatrogenic hypothyroidism (radioactive iodine ablation for hyperthyroidism).She presented to the ED complaining of insomnia and a recent episode of syncope. Chief Complaint "I feel a lot better". Subjective Subjective Patient was seen & assessed and interval progress reviewed with treatment team. Patient recently completed a course of Augmentin, prednisone for sinus infection. On admission to the medical floor, she presented multiple laboratory abnormalities that are being corrected by the primary team. She had been undergoing extensive cardiovascular workup. Yesterday we discussed the use of low dose Depakote (250mg HS) and she had the first dose. Today, patient report feeling better. She was able to sleep a few more hours after taking the medication and feel rested and no longer irritable. SHe was seated on the couch, her seated on the medical bed, window blinds opened. She denied headaches. Denied side effects from Depakote. Platelet number slightly improved today. NO evidence of active bleeding. She was educated about risk for bleeding and recommended to share the information about the addition fo Depakote with all her doctors. She agreed to continue taking the medication at home as prescribed. We also discussed sleep hygiene. Procedures Performed Operation Date: 01/06/24 15:00 Actual Procedures p Fluoroscopy Up To 1 Hour - Bert Arriaga MD Physical Exam Psychiatric A+Ox3, euthymic affect Apperance: appropriately dressed Eye Contact: good eye contact Motor Behavior: no abnormal motor movements Speech: normal rate/rhythm/volume of speech Affect: euthymic affect Mood: no depressed mood, no anxious mood and no irritable mood Thought Process: goal directed thought process Thought Content: not paranoid, no delusions and no hopelessness Suicidal Thoughts: denies suicidal thoughts Homicidal Thoughts: denies homicidal thoughts Hallucinations: no auditory hallucinations Insight: + fair insight Judgment: + fair judgement Vital Signs (Past 24 Hours) Last Vital Signs Temp 36.7 C 01/06/24 14:35 Pulse 71 01/06/24 14:35 Resp 18 01/06/24 14:35 BP 128/77 01/06/24 14:35 Pulse Ox 96 01/06/24 14:35 O2 Del Method Room Air 01/06/24 14:35 Results & Data ([facility]) Laboratory Results Laboratory Results - last 24 hr 01/06/24 04:41 WBC 12.02 H RBC 4.45 Hgb 12.9 Hct 39.6 MCV 89.0 MCH 29.0 MCHC 32.6 RDW Std Deviation 43.8 RDW Coeff of Barbara 13.5 Plt Count 204 MPV 11.4 PT 19.5 H INR 1.9 H Sodium 134 L Potassium 4.5 Chloride 101 Carbon Dioxide 26 Anion Gap 7 BUN 19 Creatinine 1.05 Est Cr Clr Drug Dosing 56.4 Est GFR ( Amer) 65.9 Est GFR (Non-Af Amer) 56.9 BUN/Creatinine Ratio 18.1 Glucose 102 H Calcium 9.9 Magnesium 1.9 Total Bilirubin 0.6 AST 34 ALT 36 Alkaline Phosphatase 74 Total Creatine Kinase 270 H Total Protein 7.3 Albumin 4.2 Globulin 3.1 Albumin/Globulin Ratio 1.4 Current Inpatient Medications Current Inpatient Medications: Current Inpatient Medications Acetaminophen (Acetaminophen 325 Mg Tab) 650 mg PO Q4H PRN PRN Reason: Pain or Fever Stop: 02/03/24 11:21 Last Admin: 01/06/24 10:53 Dose: 650 mg Amlodipine Besylate (Amlodipine Besylate 5 Mg Tab) 2.5 mg PO QAM [facility] Stop: 02/04/24 08:59 Last Admin: 01/06/24 09:36 Dose: 2.5 mg Buspirone HCl (Buspirone 5 Mg Tab) 10 mg PO BID [facility] Stop: 02/03/24 09:44 Last Admin: 01/06/24 09:37 Dose: 10 mg Divalproex Sodium (Divalproex Delay Release 250 Mg Tabec) 250 mg PO HS [facility] Stop: 02/04/24 20:59 Last Admin: 01/05/24 20:20 Dose: 250 mg Piperacillin Sod/Tazobactam (Sod 4.5 gm/ Dextrose) 100 mls @ 25 mls/hr IV Q8H [facility]; Protocol Stop: 01/06/24 18:59 Last Infusion: 01/06/24 14:30 Dose: Infused Heparin Sodium/Dextrose (Heparin Sodium/Dextrose) 25,000 units in 500 mls @ 23 mls/hr IV .[id number] [facility]; Protocol Stop: 02/05/24 09:14 Last Admin: 01/06/24 10:18 Dose: 1,150 units/hr, 23 mls/hr Levothyroxine Sodium (Levothyroxine Sodium 125 Mcg Tablet) [facility] Stop: 02/05/24 06:29 Last Admin: 01/06/24 05:36 Dose: 125 mcg Lorazepam (Lorazepam 0.5 Mg Tab) 0.5 mg PO TID PRN PRN Reason: anxiety Stop: 02/03/24 09:41 Last Admin: 01/05/24 23:26 Dose: 0.5 mg Metoprolol Tartrate (Metoprolol Tartrate 50 Mg Tab) 50 mg PO BID [facility] Stop: 02/03/24 09:44 Last Admin: 01/06/24 09:37 Dose: 50 mg Ondansetron HCl (Ondansetron Inj 2 Mg/Ml 2 Ml Vial) 4 mg IV Q6H PRN PRN Reason: Nausea Stop: 02/03/24 11:21 Pantoprazole Sodium (Pantoprazole 40 Mg Tab) 40 mg PO [facility]; Protocol Stop: 02/03/24 20:59 Last Admin: 01/05/24 20:21 Dose: 40 mg Polyethylene Glycol (Polyethylene (Miralax) 17 Gm Pack) 17 gm PO DAILY PRN PRN Reason: Constipation Stop: 02/03/24 11:21 Trazodone HCl (Trazodone Hcl 50 Mg Tab) 50 mg PO [facility] Stop: 02/03/24 20:59 Last Admin: 01/05/24 20:20 Dose: 50 mg Warfarin Sodium (Warfarin Sod 7.5 Mg Tab) 7.5 mg PO ONE ONE Stop: 01/06/24 16:01 (1) Bipolar disorder Current episode severity: unspecified
[2024-01-06] MEDS: WARFARIN SOD 7.5 MG TAB PO ONE (16:10)
[2024-01-06] MEDS: THIAMINE HCL 100 MG TAB PO SCH (17:09)
[2024-01-06 18:08] LABS: ANTI-Xa, UFH(UnfractionatedHep 0.36 IU/ml (0.3-0.7)
[2024-01-06 23:41] LABS: ANTI-Xa, UFH(UnfractionatedHep 0.42 IU/ml (0.3-0.7)
[2024-01-07 03:57] LABS: Hematocrit (blood only) 36.7 % (37.0-47.0); Hemoglobin 12.4 g/dl (12.0-16.0); Mean Corpuscular Hemoglobin 29.5 pg (25.0-34.0); Mean Corpuscular Hgb Conc 33.8 g/dL (32.0-36.0); Mean Corpuscular Volume 87.2 fL (80.0-100.0); Mean Platelet Volume 11.3 fL (9.4-12.4); Platelet Count 188 K/uL (130-400); RDW Coefficient of Variation 13.4 % (11.5-14.5); RDW Standard Deviation 42.2 fL (36.4-46.3); Red Blood Count 4.21 M/uL (4.20-5.40); White Blood Count 10.89 K/ul (4.8-10.8)
[2024-01-07 04:13] LABS: BUN Creatinine Ratio 19.8 (10-20); Calcium 9.4 mg/dl (8.6-10.3); Creatinine Clr Calc Pharmacy 68.9 ml/min; Est GFR (African American) 83.9 ml/min; Est GFR (Non-African American) 72.4 ml/min; Potassium 4.3 mmol/L (3.5-5.1)
[2024-01-07 04:32] LABS: ANTI-Xa, UFH(UnfractionatedHep 0.52 IU/ml (0.3-0.7); INR 1.4 (0.9-1.1); Prothrombin Time 14.9 Seconds (9.0-12.0)
[2024-01-07] MEDS: WARFARIN SOD 10 MG TAB PO ONE (08:47)
--- NOTE | 2024-01-07 16:04 | Cardiology Progress Note ---
Date of Service January 07, 2024 Assessment & Plan (1) Syncope and collapse: Plan: Impression: Syncope and collapse in the setting of recent complex sinus infection History of Rheumatic heart disease with mitral stenosis and aortic valve stenosis prompting mechanical mitral valve replacement and mechanical aortic valve replacement, [address] [place] AVR, [address] [place] MVR with elevated velocities across the AV prosthesis, suggestive possible prosthetic stenosis Supratherapeutic INR, now with subtherapeutic INR (1.4, goal 2.5-3.5). Comment: Refer to discussion in progress note date 01/06/24 Plan: Continue heparin bridge, coumadin 10 mg administered today, home dose is 10 mg on Friday, Wednesdays, and Fridays, and 7.5 mg on the other days. ARNOLDO indeterminate for prosthetic AV stenosis. Prosthetic MV and AV evaluated by fluoroscopy on 01/06/2024 with noted normal excursion. Differential diagnosis includes patient prosthetic mismatch with noted small LV outflow tract velocity, however the postoperative velocities were below 3 m/s as noted in 2016. Pannus formation is another alternative. Future considerations include outpatient cardiac CT with valve protocol to evaluate for pannus. Pt to remain hospitalized for heparin bridge to goal INR of 2.5 to 3.5. Plan for outpatient cardiac CT , valve protocol, at [facility] as outpatient. Admission and Anticipated Discharge Date Admission Date: January 04, 2024 Subjective Pt seen in follow up. No acute complaints. Sinus congestion improved. Denies lightheadedness or syncope. Telemetry reveals SR in the 60s. Physical Exam Constitutional: WD/WN, vitals as above Respiratory: normal respiratory effort, lungs clear to auscultation Cardiovascular: RRR, no murmur, no edema Gastrointestinal (Abdomen): normal bowel sounds, soft, nontender, no hepatosplenomegaly Neurologic: PERRL, EOMI, accommodation nl, no face palsy, no dysarthria Results & Data Vital Signs (Past 12 Hours) Vital Signs Temp Pulse Pulse Resp BP BP Pulse Ox 01/07/24 14:45 36.6 C 84 17 163/81 H 97 01/07/24 10:58 36.8 C 79 20 146/95 H 99 01/07/24 10:23 92 H 01/07/24 07:03 36.7 C 91 H 17 146/79 H 97 O2 Del Method 01/07/24 14:45 Room Air 01/07/24 10:58 Room Air 01/07/24 10:23 01/07/24 07:03 Room Air Laboratory Results Coagulation 01/07/24 Range/Units 03:42 PT 14.9 H (9.0-12.0) Seconds CBC 01/07/24 Range/Units 03:42 WBC 10.89 H (4.8-10.8) K/ul RBC 4.21 (4.20-5.40) M/uL Hgb 12.4 (12.0-16.0) g/dl Hct 36.7 L (37.0-47.0) % Plt Count 188 (130-400) K/uL Comprehensive Metabolic Panel 01/07/24 Range/Units 03:42 Sodium 134 L (136-145) mmol/L Potassium 4.3 (3.5-5.1) mmol/L Chloride 101 (98-107) mmol/L Carbon Dioxide 27 (21-32) mmol/L BUN 17 (6-23) mg/dl Creatinine 0.86 (0.6-1.2) mg/dl Glucose 109 H (70-99(Fasting)) mg/dl Calcium 9.4 (8.6-10.3) mg/dl Intake and Output 01/07/24 01/07/24 01/07/24 06:59 14:59 22:59 Intake Total 575 / 1465 977.600 / 977.600 Balance 575 / 1464 977.600 / 977.600 Intake: IV 487.600 / 487.600 Heparin Sodium/Dextrose 25,000 487.600 / 487.600 units In 500 ml @ 1,150 UNITS/ HR 23 mls/hr IV .[id number] [facility] Rx #:[id number] Oral 575 / 1265 490 / 490 Other: # Unmeasured Voids 2 3 Weight 79 kg Weight Measurement Method Standing Scale
--- NOTE | 2024-01-07 17:37 | Hospitalist Progress Note ---
Date of Service January 07, 2024 Assessment & Plan (1) Syncope and collapse: Plan: Syncope: Likely secondary to moderate to severe aortic stenosis --CT head:No acute intracranial hemorrhage, midline shift, or mass effect. --Neck CT:No acute fracture or subluxation of the cervical spine. Troponin negative Normal Orthostatics --ECHO: Left ventricular EF 55 to 60%. 21 mm [place] mechanical aortic valve. The aortic valve peak velocity is 3.9 m/s mean gradient 34 mmHg. Mechanical aortic valve gradients are now elevated suggestive of moderate to severe aortic stenosis. Mechanical mitral valve 31 mm [place] mechanical valve. The mean gradient of 3.3 mmHg at heart rate of 73 bpm. Normal prosthetic valve function. Normal inferior vena cava size and collapsibility with sniff indicates a normal right atrial pressure of 3 mm Hg. --Carotid US:Atherosclerosis without hemodynamically significant stenosis. Normal antegrade vertebral flow bilaterally. --ARNOLDO: Mechanical mitral valve prosthesis well-visualized with normal function. Mechanical aortic valve prosthesis suboptimally visualized due to presence of acoustic shadowing as would be expected with this particular prosthesis but appeared to be mobile. No significant prosthetic aortic valve regurgitation is present. Valvular gradients could not be obtained. --EEG:This is a normal awake and drowsy routine EEG. There is no evidence of foc al slowing or epileptiform activity. No arrhythmias on monitor Received IV fluids Appreciate cardiology input and recommendation Remained stable without any cardiac symptoms and will have outpatient cardiac CT, valve protocol at [facility] [place] on discharge Acute Rhabdomyolysis Secondary to Fall/trauma CK levels improved Received IV fluids Electrolyte imbalance Hypokalemia Hyponatremia Replete electrolytes as needed Normalized Leukocytosis-likely secondary to recent complex sinus infection as per cardiology note CT chest, abdomen no signs of infection Bio fire negative Blood culture negative to date Urine culture noncontributory Empirically on Zosyn which has been discontinued subsequently No signs and symptoms of infection and the white count has come down to normal Acute kidney injury Monitor renal function Avoid nephrotoxic's agents as able received IV fluids Cr back to baseline Supratherapeutic INR No acute bleeding issues Resume Coumadin today Monitor INR: 4.4>>1.9 Started on IV heparin bridge Adjust Coumadin dose as needed INR is 1.4 on 01/07/2024 and received 10 mg of Coumadin today We will check INR tomorrow if therapeutic will be discharged Paroxysmal atrial fibrillation Continue metoprolol Monitor INR Continue Coumadin Severe aortic stenosis Severe mitral stenosis H/O rheumatic heart disease 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) Continue home medications Monitor volume status Cardiology on board Abnormal thyroid function test H/O Graves' disease H/O hypothyroidism Elevated TSH, normal free T4 Continue levothyroxine--increase to 125 mcg daily Needs repeat thyroid function test as outpatient GERD Continue PPI Mood disorder Insomnia Continue home medications DVT Px: Coumadin, IV heparin Admission and Anticipated Discharge Date Admission Date: January 04, 2024 Subjective 01/07/2024 The patient was seen and examined in the telemetry unit She has been feeling much better today Denies any significant symptoms and wants to go home INR is not therapeutic yet Review of Systems Review of Systems: All systems reviewed and are unremarkable except as noted below Physical Exam Physical Exam: Sitting at the edge of the bed without any acute distress Constitutional: well developed and well nourished; not ill appearing Eyes: PERRL, conjunctivae normal, anicteric sclerae ENMT: external ear and nose normal, oropharynx normal Neck: trachea midline, no thyromegaly Respiratory: no respiratory distress Auscultation: lungs clear to auscultation bilaterally Cardiovascular: Rate/Rhythm: regular rate and regular rhythm; not tachycardic Heart Sounds: normal S1, normal S2 and + murmur Extremities: no edema Gastrointestinal (Abdomen): Inspection/Auscultation: normal bowel sounds; abdomen not distended Percussion/Palpation: abdomen soft; abdomen nontender Musculoskeletal: No acute arthritis involving any of the joint Neurologic: normal touch/pain/proprioception and moves all extremities; no focal motor deficits Psychiatric: A+Ox3, euthymic affect Lymphatic: no cervical or axillary lymphadenopathy Results & Data Results & Data Vital Signs (Past 12 Hours) Vital Signs Temp Pulse Pulse Resp BP BP Pulse Ox 01/07/24 14:45 36.6 C 84 17 163/81 H 97 01/07/24 10:58 36.8 C 79 20 146/95 H 99 01/07/24 10:23 92 H 01/07/24 07:03 36.7 C 91 H 17 146/79 H 97 O2 Del Method 01/07/24 14:45 Room Air 01/07/24 10:58 Room Air 01/07/24 10:23 01/07/24 07:03 Room Air Laboratory Results Short CBC 01/07/24 Range/Units 03:42 WBC 10.89 H (4.8-10.8) K/ul Hgb 12.4 (12.0-16.0) g/dl Hct 36.7 L (37.0-47.0) % Plt Count 188 (130-400) K/uL BMP 01/07/24 03:42 Sodium 134 L Potassium 4.3 Chloride 101 Carbon Dioxide 27 BUN 17 Creatinine 0.86 Glucose 109 H Calcium 9.4 Medications Administered Current Inpatient Medications Acetaminophen (Acetaminophen 325 Mg Tab) 650 mg PO Q4H PRN PRN Reason: Pain or Fever Stop: 02/03/24 11:21 Last Admin: 01/07/24 06:31 Dose: 650 mg Amlodipine Besylate (Amlodipine Besylate 5 Mg Tab) 2.5 mg PO QAM [facility] Stop: 02/04/24 08:59 Last Admin: 01/07/24 07:30 Dose: 2.5 mg Buspirone HCl (Buspirone 5 Mg Tab) 10 mg PO BID [facility] Stop: 02/03/24 09:44 Last Admin: 01/07/24 07:30 Dose: 10 mg Divalproex Sodium (Divalproex Delay Release 250 Mg Tabec) 250 mg PO HS [facility] Stop: 02/04/24 20:59 Last Admin: 01/06/24 20:54 Dose: 250 mg Heparin Sodium/Dextrose (Heparin Sodium/Dextrose) 25,000 units in 500 mls @ 23 mls/hr IV .[id number] [facility]; Protocol Stop: 02/05/24 09:14 Last Admin: 01/07/24 07:30 Dose: 1,150 units/hr, 23 mls/hr Levothyroxine Sodium (Levothyroxine Sodium 125 Mcg Tablet) 125 mcg PO DAILYBB [facility] Stop: 02/05/24 06:29 Last Admin: 01/07/24 06:29 Dose: 125 mcg Lorazepam (Lorazepam 0.5 Mg Tab) 0.5 mg PO TID PRN PRN Reason: anxiety Stop: 02/03/24 09:41 Last Admin: 01/05/24 23:26 Dose: 0.5 mg Metoprolol Tartrate (Metoprolol Tartrate 50 Mg Tab) 50 mg PO BID [facility] Stop: 02/03/24 09:44 Last Admin: 01/07/24 07:30 Dose: 50 mg Ondansetron HCl (Ondansetron Inj 2 Mg/Ml 2 Ml Vial) 4 mg IV Q6H PRN PRN Reason: Nausea Stop: 02/03/24 11:21 Pantoprazole Sodium (Pantoprazole 40 Mg Tab) 40 mg PO [facility]; Protocol Stop: 02/03/24 20:59 Last Admin: 01/06/24 20:53 Dose: 40 mg Polyethylene Glycol (Polyethylene (Miralax) 17 Gm Pack) 17 gm PO DAILY PRN PRN Reason: Constipation Stop: 02/03/24 11:21 Thiamine HCl (Thiamine Hcl 100 Mg Tab) 100 mg PO [facility] Stop: 02/05/24 15:44 Last Admin: 01/07/24 07:30 Dose: 100 mg Trazodone HCl (Trazodone Hcl 50 Mg Tab) 50 mg PO [facility] Stop: 02/03/24 20:59 Last Admin: 01/06/24 20:53 Dose: 50 mg
[2024-01-08 06:11] LABS: Basophils # (auto) 0.05 K/uL (0.00-0.20); Basophils % (auto) 0.7 %; Eosinophils # (auto) 0.29 K/uL (0.00-0.50); Eosinophils % (auto) 3.8 %; Hematocrit (blood only) 40.7 % (37.0-47.0); Hemoglobin 13.4 g/dl (12.0-16.0); Immature Granulocytes # (auto) 0.03 K/uL (0.01-0.20); Immature Granulocytes % (auto) 0.4 %; Lymphocytes # (auto) 1.38 K/uL (1.20-3.40); Lymphocytes % (auto) 18.2 %; Mean Corpuscular Hemoglobin 29.4 pg (25.0-34.0); Mean Corpuscular Hgb Conc 32.9 g/dL (32.0-36.0); Mean Corpuscular Volume 89.3 fL (80.0-100.0); Mean Platelet Volume 12.2 fL (9.4-12.4); Monocytes # (auto) 0.58 K/uL (0.11-0.59); Monocytes % (auto) 7.6 %; Neutrophils # (auto) 5.26 K/uL (1.40-6.50); Neutrophils % (auto) 69.3 %; Platelet Count 185 K/uL (130-400); RDW Coefficient of Variation 13.4 % (11.5-14.5); RDW Standard Deviation 43.8 fL (36.4-46.3); Red Blood Count 4.56 M/uL (4.20-5.40); White Blood Count 7.59 K/ul (4.8-10.8)
[2024-01-08 06:27] LABS: BUN Creatinine Ratio 21.7 (10-20); Calcium 10.1 mg/dl (8.6-10.3); Creatinine Clr Calc Pharmacy 64.5 ml/min; Est GFR (African American) 77.3 ml/min; Est GFR (Non-African American) 66.7 ml/min; Potassium 4.5 mmol/L (3.5-5.1)
[2024-01-08 06:37] LABS: ANTI-Xa, UFH(UnfractionatedHep 0.58 IU/ml (0.3-0.7); INR 1.7 (0.9-1.1); Prothrombin Time 18.4 Seconds (9.0-12.0)
[2024-01-08] MEDS: WARFARIN SOD 10 MG TAB PO ONE (09:32)
--- NOTE | 2024-01-08 11:24 | Cardiology Progress Note ---
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 Comment: Refer to discussion in progress note date 01/06/24 Plan: Continue heparin bridge, coumadin 10 mg administered today, home dose is 10 mg on Friday, Wednesdays, and Fridays, and 7.5 mg on the other days. ARNOLDO indeterminate for prosthetic AV stenosis. Prosthetic MV and AV evaluated by fluoroscopy on 01/06/2024 with noted normal excursion. Differential diagnosis includes patient prosthetic mismatch with noted small LV outflow tract velocity, however the postoperative velocities were below 3 m/s as noted in 2016. Pannus formation is another alternative. Future considerations include outpatient cardiac CT with valve protocol to evaluate for pannus. Pt to remain hospitalized for heparin bridge to goal INR of 2.5 to 3.5. If below goal tomorrow , could consider lovenox bridge , but patient favors staying in the hospital tonight. Givne labile recent INR readings (high on presentation, low now) in hospital monitoring of anticoagulation preferred given mechanical valves. Plan for [place] cardiac CT , valve protocol, [place] [facility] [place] Admission and Anticipated Discharge Date Admission Date: January 04, 2024 Subjective Patient seen in follow up. She feels well from a cardiac perspective with no recurrent syncope, however, she notes she is not sleeping well in her hospital bed. Telemetry reveals SR in the 80s. Physical Exam Constitutional: WD/WN, vitals as above Respiratory: normal respiratory effort, lungs clear to auscultation Cardiovascular: RRR, no murmur, no edema Gastrointestinal (Abdomen): normal bowel sounds, soft, nontender, no hepatosplenomegaly Neurologic: PERRL, EOMI, accommodation nl, no face palsy, no dysarthria Results & Data Vital Signs (Past 12 Hours) Vital Signs Temp Pulse Pulse Resp BP Pulse Ox O2 Del Method 01/08/24 08:00 83 01/08/24 07:10 36.5 C 92 H 18 126/71 98 Room Air 01/08/24 03:00 36.4 C L 76 20 142/79 H 97 Room Air Laboratory Results Coagulation 01/08/24 Range/Units 05:28 PT 18.4 H (9.0-12.0) Seconds CBC 01/08/24 Range/Units 05:28 WBC 7.59 (4.8-10.8) K/ul RBC 4.56 (4.20-5.40) M/uL Hgb 13.4 (12.0-16.0) g/dl Hct 40.7 (37.0-47.0) % Plt Count 185 (130-400) K/uL Neut # (Auto) 5.26 (1.40-6.50) K/uL Lymph # (Auto) 1.38 (1.20-3.40) K/uL Harney # (Auto) 0.58 (0.11-0.59) K/uL Eos # (Auto) 0.29 (0.00-0.50) K/uL Baso # (Auto) 0.05 (0.00-0.20) K/uL Comprehensive Metabolic Panel 01/08/24 Range/Units 05:28 Sodium 135 L (136-145) mmol/L Potassium 4.5 (3.5-5.1) mmol/L Chloride 102 (98-107) mmol/L Carbon Dioxide 29 (21-32) mmol/L BUN 20 (6-23) mg/dl Creatinine 0.92 (0.6-1.2) mg/dl Glucose 135 H (70-99(Fasting)) mg/dl Calcium 10.1 (8.6-10.3) mg/dl INR 1.7
--- NOTE | 2024-01-08 14:58 | Hospitalist Progress Note ---
Date of Service January 08, 2024 Assessment & Plan (1) Syncope and collapse: Plan: Syncope: Likely secondary to moderate to severe aortic stenosis --CT head:No acute intracranial hemorrhage, midline shift, or mass effect. --Neck CT:No acute fracture or subluxation of the cervical spine. Troponin negative Normal Orthostatics --ECHO: Left ventricular EF 55 to 60%. 21 mm [place] mechanical aortic valve. The aortic valve peak velocity is 3.9 m/s mean gradient 34 mmHg. Mechanical aortic valve gradients are now elevated suggestive of moderate to severe aortic stenosis. Mechanical mitral valve 31 mm [place] mechanical valve. The mean gradient of 3.3 mmHg at heart rate of 73 bpm. Normal prosthetic valve function. Normal inferior vena cava size and collapsibility with sniff indicates a normal right atrial pressure of 3 mm Hg. --Carotid US:Atherosclerosis without hemodynamically significant stenosis. Normal antegrade vertebral flow bilaterally. --ARNOLDO: Mechanical mitral valve prosthesis well-visualized with normal function. Mechanical aortic valve prosthesis suboptimally visualized due to presence of acoustic shadowing as would be expected with this particular prosthesis but appeared to be mobile. No significant prosthetic aortic valve regurgitation is present. Valvular gradients could not be obtained. --EEG:This is a normal awake and drowsy routine EEG. There is no evidence of foc al slowing or epileptiform activity. No arrhythmias on monitor Received IV fluids Appreciate cardiology input and recommendation Remained stable without any cardiac symptoms and will have outpatient cardiac CT, valve protocol at [facility] [place] on discharge Acute Rhabdomyolysis Secondary to Fall/trauma CK levels improved Received IV fluids Has been drinking enough fluid and no other issues Electrolyte imbalance Hypokalemia Hyponatremia Replete electrolytes as needed Normalized Leukocytosis-likely secondary to recent complex sinus infection as per cardiology note CT chest, abdomen no signs of infection Bio fire negative Blood culture negative to date Urine culture noncontributory Empirically on Zosyn which has been discontinued subsequently No signs and symptoms of infection and the white count has come down to normal Acute kidney injury Monitor renal function Avoid nephrotoxic's agents as able received IV fluids Cr back to baseline Supratherapeutic INR No acute bleeding issues Resume Coumadin today Monitor INR: 4.4>>1.9 Started on IV heparin bridge Adjust Coumadin dose as needed INR is 1.4 on 01/07/2024 and received 10 mg of Coumadin today We will check INR tomorrow if therapeutic will be discharged INR is not yet therapeutic and will get 10 mg Coumadin today Will check INR tomorrow and likely discharge tomorrow Paroxysmal atrial fibrillation Continue metoprolol Monitor INR Continue Coumadin Severe aortic stenosis Severe mitral stenosis H/O rheumatic heart disease 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) Continue home medications Monitor volume status Cardiology on board Abnormal thyroid function test H/O Graves' disease H/O hypothyroidism Elevated TSH, normal free T4 Continue levothyroxine--increase to 125 mcg daily Needs repeat thyroid function test as outpatient GERD Continue PPI Mood disorder Insomnia Continue home medications DVT Px: Coumadin, IV heparin Admission and Anticipated Discharge Date Admission Date: January 04, 2024 Subjective 01/07/2024 The patient was seen and examined in the telemetry unit She has been feeling much better today Denies any significant symptoms and wants to go home INR is not therapeutic yet 01/08/2024 Patient was seen and examined in telemetry unit She has been feeling much better and denies any symptoms Her iron it is not therapeutic and wanted to stay tonight Review of Systems Review of Systems: All systems reviewed and are unremarkable except as noted below Physical Exam Physical Exam: Sitting at the edge of the bed without any acute distress Constitutional: well developed and well nourished; not ill appearing Eyes: PERRL, conjunctivae normal, anicteric sclerae ENMT: external ear and nose normal, oropharynx normal Neck: trachea midline, no thyromegaly Respiratory: no respiratory distress Auscultation: lungs clear to auscultation bilaterally Cardiovascular: Rate/Rhythm: regular rate and regular rhythm; not tachycardic Heart Sounds: normal S1, normal S2 and + murmur Extremities: no edema Gastrointestinal (Abdomen): Inspection/Auscultation: normal bowel sounds; abdomen not distended Percussion/Palpation: abdomen soft; abdomen nontender Musculoskeletal: No acute arthritis involving any of the joints Neurologic: normal touch/pain/proprioception and moves all extremities; no focal motor deficits Psychiatric: A+Ox3, euthymic affect Lymphatic: no cervical or axillary lymphadenopathy Results & Data Results & Data Vital Signs (Past 12 Hours) Vital Signs Temp Pulse Pulse Resp BP Pulse Ox O2 Del Method 01/08/24 14:50 36.8 C 89 18 157/82 H 96 Room Air 01/08/24 11:00 36.7 C 74 20 130/84 98 Room Air 01/08/24 08:00 83 01/08/24 07:10 36.5 C 92 H 18 126/71 98 Room Air 01/08/24 03:00 36.4 C L 76 20 142/79 H 97 Room Air Laboratory Results Short CBC 01/08/24 Range/Units 05:28 WBC 7.59 (4.8-10.8) K/ul Hgb 13.4 (12.0-16.0) g/dl Hct 40.7 (37.0-47.0) % Plt Count 185 (130-400) K/uL BMP 01/08/24 05:28 Sodium 135 L Potassium 4.5 Chloride 102 Carbon Dioxide 29 BUN 20 Creatinine 0.92 Glucose 135 H Calcium 10.1 Medications Administered Current Inpatient Medications Acetaminophen (Acetaminophen 325 Mg Tab) 650 mg PO Q4H PRN PRN Reason: Pain or Fever Stop: 02/03/24 11:21 Last Admin: 01/08/24 01:06 Dose: 650 mg Amlodipine Besylate (Amlodipine Besylate 5 Mg Tab) [facility] Stop: 02/04/24 08:59 Last Admin: 01/08/24 07:34 Dose: 2.5 mg Buspirone HCl (Buspirone 5 Mg Tab) 10 mg PO BID [facility] Stop: 02/03/24 09:44 Last Admin: 01/08/24 07:35 Dose: 10 mg Divalproex Sodium (Divalproex Delay Release 250 Mg Tabec) 250 mg PO HS [facility] Stop: 02/04/24 20:59 Last Admin: 01/07/24 20:26 Dose: 250 mg Heparin Sodium/Dextrose (Heparin Sodium/Dextrose) 25,000 units in 500 mls @ 23 mls/hr IV .[id number] [facility]; Protocol Stop: 02/05/24 09:14 Last Titration: 01/08/24 07:05 Dose: 1,150 units/hr, 23 mls/hr Levothyroxine Sodium (Levothyroxine Sodium 125 Mcg Tablet) 125 mcg PO DAILYBB [facility] Stop: 02/05/24 06:29 Last Admin: 01/08/24 06:46 Dose: 125 mcg Lorazepam (Lorazepam 0.5 Mg Tab) 0.5 mg PO TID PRN PRN Reason: anxiety Stop: 02/03/24 09:41 Last Admin: 01/08/24 02:40 Dose: 0.5 mg Metoprolol Tartrate (Metoprolol Tartrate 50 Mg Tab) 50 mg PO BID [facility] Stop: 02/03/24 09:44 Last Admin: 01/08/24 07:35 Dose: 50 mg Ondansetron HCl (Ondansetron Inj 2 Mg/Ml 2 Ml Vial) 4 mg IV Q6H PRN PRN Reason: Nausea Stop: 02/03/24 11:21 Pantoprazole Sodium (Pantoprazole 40 Mg Tab) 40 mg PO [facility]; Protocol Stop: 02/03/24 20:59 Last Admin: 01/07/24 20:27 Dose: 40 mg Polyethylene Glycol (Polyethylene (Miralax) 17 Gm Pack) 17 gm PO DAILY PRN PRN Reason: Constipation Stop: 02/03/24 11:21 Thiamine HCl (Thiamine Hcl 100 Mg Tab) [facility] [place] Stop: 02/05/24 15:44 Last Admin: 01/08/24 07:35 Dose: 100 mg Trazodone HCl (Trazodone Hcl 50 Mg Tab) 50 mg PO [facility] Stop: 02/03/24 20:59 Last Admin: 01/07/24 20:27 Dose: 50 mg
[2024-01-09 06:50] LABS: ANTI-Xa, UFH(UnfractionatedHep 0.55 IU/ml (0.3-0.7); INR 2.1 (0.9-1.1); Prothrombin Time 22.3 Seconds (9.0-12.0)
--- NOTE | 2024-01-09 12:34 | Hospitalist Progress Note ---
Date of Service January 09, 2024 Assessment & Plan (1) Syncope and collapse: Plan: Syncope: Likely secondary to moderate to severe aortic stenosis --CT head:No acute intracranial hemorrhage, midline shift, or mass effect. --Neck CT:No acute fracture or subluxation of the cervical spine. Troponin negative Normal Orthostatics --ECHO: Left ventricular EF 55 to 60%. 21 mm [place] mechanical aortic valve. The aortic valve peak velocity is 3.9 m/s mean gradient 34 mmHg. Mechanical aortic valve gradients are now elevated suggestive of moderate to severe aortic stenosis. Mechanical mitral valve 31 mm [place] mechanical valve. The mean gradient of 3.3 mmHg at heart rate of 73 bpm. Normal prosthetic valve function. Normal inferior vena cava size and collapsibility with sniff indicates a normal right atrial pressure of 3 mm Hg. --Carotid US:Atherosclerosis without hemodynamically significant stenosis. Normal antegrade vertebral flow bilaterally. --ARNOLDO: Mechanical mitral valve prosthesis well-visualized with normal function. Mechanical aortic valve prosthesis suboptimally visualized due to presence of acoustic shadowing as would be expected with this particular prosthesis but appeared to be mobile. No significant prosthetic aortic valve regurgitation is present. Valvular gradients could not be obtained. --EEG:This is a normal awake and drowsy routine EEG. There is no evidence of foc al slowing or epileptiform activity. No arrhythmias on monitor Received IV fluids Appreciate cardiology input and recommendation Remained stable without any cardiac symptoms and will have outpatient cardiac CT, valve protocol at [facility] [place] She will get Lovenox 120 mg subcu today and will have another dose tomorrow Continue current home dose of Coumadin and she will have an INR checked on Friday Acute Rhabdomyolysis Secondary to Fall/trauma CK levels improved Received IV fluids Has been drinking enough fluid and no other issues Electrolyte imbalance Hypokalemia Hyponatremia Replete electrolytes as needed Normalized Leukocytosis-likely secondary to recent complex sinus infection as per cardiology note CT chest, abdomen no signs of infection Bio fire negative Blood culture negative to date Urine culture noncontributory Empirically on Zosyn which has been discontinued subsequently No signs and symptoms of infection and the white count has come down to normal Acute kidney injury Monitor renal function Avoid nephrotoxic's agents as able received IV fluids Cr back to baseline Advised to have more oral fluid Supratherapeutic INR No acute bleeding issues Resume Coumadin today Monitor INR: 4.4>>1.9 Started on IV heparin bridge Adjust Coumadin dose as needed INR is 1.4 on 01/07/2024 and received 10 mg of Coumadin today We will check INR tomorrow if therapeutic will be discharged INR is not yet therapeutic and will get 10 mg Coumadin today INR is 2.1 today Discharged home on Lovenox and checkup on Friday for repeat INR Paroxysmal atrial fibrillation Continue metoprolol Monitor INR Continue Coumadin Severe aortic stenosis Severe mitral stenosis H/O rheumatic heart disease 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) Continue home medications Monitor volume status Cardiology on board Abnormal thyroid function test H/O Graves' disease H/O hypothyroidism Elevated TSH, normal free T4 Continue levothyroxine--increase to 125 mcg daily Needs repeat thyroid function test as outpatient GERD Continue PPI Mood disorder Insomnia Continue home medications DVT Px: Coumadin, IV heparin Admission and Anticipated Discharge Date Admission Date: January 04, 2024 Subjective 01/07/2024 The patient was seen and examined in the telemetry unit She has been feeling much better today Denies any significant symptoms and wants to go home INR is not therapeutic yet 01/08/2024 Patient was seen and examined in telemetry unit She has been feeling much better and denies any symptoms Her iron it is not therapeutic and wanted to stay tonight 01/09/2024 The patient was seen and examined in telemetry She has been feeling much better without any symptoms Her INR is 2.1 today and she will be discharged home on Lovenox for today and tomorrow only Review of Systems Review of Systems: All systems reviewed and are unremarkable except as noted below Physical Exam Physical Exam: Sitting at the edge of the bed without any acute distress Constitutional: well developed and well nourished; not ill appearing Eyes: PERRL, conjunctivae normal, anicteric sclerae ENMT: external ear and nose normal, oropharynx normal Neck: trachea midline, no thyromegaly Respiratory: no respiratory distress Auscultation: lungs clear to auscul tation bilaterally Cardiovascular: Rate/Rhythm: regular rate and regular rhythm; not tachycardic Heart Sounds: normal S1, normal S2 and + murmur Extremities: no edema Gastrointestinal (Abdomen): Inspection/Auscultation: normal bowel sounds; abdomen not distended Percussion/Palpation: abdomen soft; abdomen nontender Neurologic: normal touch/pain/proprioception and moves all extremities; no focal motor deficits Psychiatric: A+Ox3, euthymic affect Lymphatic: no cervical or axillary lymphadenopathy Results & Data Results & Data Vital Signs (Past 12 Hours) Vital Signs Temp Pulse Pulse Resp BP Pulse Ox O2 Del Method 01/09/24 10:50 36.8 C 79 18 118/74 98 Room Air 01/09/24 08:00 88 01/09/24 07:29 36.8 C 92 H 17 143/83 H 96 Room Air 01/09/24 03:00 36.5 C 75 20 137/73 96 Room Air
[2024-01-09] MEDS: ENOXAPARIN INJ 120 MG/0.8 ML SYR SQ ONE (14:17)
--- NOTE | 2024-01-10 07:36 | Discharge Summary ---
Date of Service January 10, 2024 Admission HPI Per Admitting Provider Patient is a 63-year-old female with history of paroxysmal atrial fibrillation, endometriosis, Graves' disease, hypothyroidism, valvular heart disease S/P aortic valve replacement, mitral valve replacement, rheumatic valve disease, overactive bladder, hypertension, GERD, depression/anxiety disorder and other medical problems presents with history of syncope associated with dizziness, bowel incontinence. Patient is very anxious during my encounter and is restless and unable to provide much history. Most of the history is obtained from patient's at bedside, ER staff and medical records. Patient's family informs that patient had a syncopal episode earlier this morning which resulted in fall. She had a second syncopal episode resulting in loss of bowel function on her way to bathroom. Loss of consciousness lasted about 1 to 3 minutes but patient was confused and complained to have dizziness at the time. Patient's states that she had poor sleep last night and so is currently very restless which he attributes to poor sleep. No known seizure-like activity per record. She currently is oriented x 3. Patient also had ambulatory dysfunction after the syncopal episode but currently had no issues. Patient recently completed a course of Augmentin, prednisone for sinus infection. Denies any history of chest pain, dyspnea, palpitations, pedal edema, cough, fever, chills, weakness, numbness, change in vision, nausea, vomiting, abdominal pain, blood in stools, diarrhea, hematuria. Admission Exam Per Admitting Provider Physical Exam: Physical Exam: Vitals signs as noted above General Appearance:Moderately built and nourished, +Anxious Head: normocephalic, Atraumatic Eyes: normal inspection, EOMI Neck: supple, Trachea midline Respiratory/Chest: Normal breath sounds, CTA, No accessory muscle use Cardiovascular: Mechanical heart sounds, tachycardia, +murmur Abdomen/GI:Soft, Non tender, Bowel sounds present Extremities/Musculoskeletal:normal inspection, no edema Neurologic/Psych:AAOX3, grossly no focal neurological deficits Skin: normal color, warm Principal Diagnosis Syncope and collapse, paroxysmal atrial fibrillation, severe aortic stenosis, TALI, rhabdomyolysis Discharge Exam Sitting at the edge of the bed without any acute distress Constitutional well developed and well nourished; not ill appearing Eyes PERRL, conjunctivae normal, anicteric sclerae ENMT external ear and nose normal, oropharynx normal Neck trachea midline, no thyromegaly Respiratory no respiratory distress Auscultation: lungs clear to auscultation bilaterally Cardiovascular Rate/Rhythm: regular rate and regular rhythm; not tachycardic Heart Sounds: normal S1, normal S2 and + murmur Extremities: no edema Gastrointestinal (Abdomen) Inspection/Auscultation: normal bowel sounds; abdomen not distended Percussion/Palpation: abdomen soft; abdomen nontender Neurologic normal touch/pain/proprioception and moves all extremities; no focal motor deficits Psychiatric A+Ox3, euthymic affect Lymphatic no cervical or axillary lymphadenopathy Discharge Data Allergies Allergy/AdvReac Type Severity Reaction Status Date / Time ciprofloxacin [From Cipro] Allergy Mild drug Verified 05/04/21 10:26 interaction with lexapro benzocaine Allergy Unknown UNKNOWN Verified 05/04/21 10:26 NSAIDS (Non-Steroidal Allergy Unknown NEEDS TO Verified 05/04/21 10:26 Anti-Inflamma AVOID DUE TO GLOMERULONEPRITIS ceftriaxone AdvReac Intermediate hallucinati Verified 05/04/21 10:26 ons Consultations 01/04/24 06:57 ED Decision to Admit Stat 01/04/24 11:22 Consult Cardiology Routine 01/04/24 14:32 Consult Psychiatry Routine 01/05/24 11:09 Consult Anesthesiology Routine Procedures Performed Operation Date: 01/06/24 15:00 Actual Procedures p Fluoroscopy Up To 1 Hour - Bert Arriaga MD Ordered Studies 01/04/24 01:40 CT cervical spine wo con Stat CT head/brain wo con Stat 01/04/24 03:42 CT abd pelvis IV con only Stat CT angio chest PE protocol Stat 01/05/24 US carotid doppler BI Routine 01/06/24 14:55 CL Cath Imgs for PACS use only Routine Hospital Course (1) Syncope and collapse: Syncope: Likely secondary to moderate to severe aortic stenosis --CT head:No acute intracranial hemorrhage, midline shift, or mass effect. --Neck CT:No acute fracture or subluxation of the cervical spine. Troponin negative Normal Orthostatics --ECHO: Left ventricular EF 55 to 60%. 21 mm [place] mechanical aortic valve. The aortic valve peak velocity is 3.9 m/s mean gradient 34 mmHg. Mechanical aortic valve gradients are now elevated suggestive of moderate to se jeremías aortic stenosis. Mechanical mitral valve 31 mm [place] mechanical valve. The mean gradient of 3.3 mmHg at heart rate of 73 bpm. Normal prosthetic valve function. Normal inferior vena cava size and collapsibility with sniff indicates a normal right atrial pressure of 3 mm Hg. --Carotid US:Atherosclerosis without hemodynamically significant stenosis. Normal antegrade vertebral flow bilaterally. --ARNOLDO: Mechanical mitral valve prosthesis well-visualized with normal function. Mechanical aortic valve prosthesis suboptimally visualized due to presence of acoustic shadowing as would be expected with this particular prosthesis but appeared to be mobile. No significant prosthetic aortic valve regurgitation is present. Valvular gradients could not be obtained. --EEG:This is a normal awake and drowsy routine EEG. There is no evidence of focal slowing or epileptiform activity. No arrhythmias on monitor Received IV fluids Appreciate cardiology input and recommendation Remained stable without any cardiac symptoms and will have outpatient cardiac CT, valve protocol at [facility] on discharge She will get Lovenox 120 mg subcu today and will have another dose tomorrow Continue current home dose of Coumadin and she will have an INR checked on Friday Acute Rhabdomyolysis Secondary to Fall/trauma CK levels improved Received IV fluids Has been drinking enough fluid and no other issues Electrolyte imbalance Hypokalemia Hyponatremia Replete electrolytes as needed Normalized Leukocytosis-likely secondary to recent complex sinus infection as per cardiology note CT chest, abdomen no signs of infection Bio fire negative Blood culture negative to date Urine culture noncontributory Empirically on Zosyn which has been discontinued subsequently No signs and symptoms of infection and the white count has come down to normal Acute kidney injury Monitor renal function Avoid nephrotoxic's agents as able received IV fluids Cr back to baseline Advised to have more oral fluid Supratherapeutic INR No acute bleeding issues Resume Coumadin today Monitor INR: 4.4>>1.9 Started on IV heparin bridge Adjust Coumadin dose as needed INR is 1.4 on 01/07/2024 and received 10 mg of Coumadin today We will check INR tomorrow if therapeutic will be discharged INR is not yet therapeutic and will get 10 mg Coumadin today INR is 2.1 today Discharged home on Lovenox and checkup on Friday for repeat INR Paroxysmal atrial fibrillation Continue metoprolol Monitor INR Continue Coumadin Severe aortic stenosis Severe mitral stenosis H/O rheumatic heart disease 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) Continue home medications Monitor volume status Cardiology on board Abnormal thyroid function test H/O Graves' disease H/O hypothyroidism Elevated TSH, normal free T4 Continue levothyroxine--increase to 125 mcg daily Needs repeat thyroid function test as outpatient GERD Continue PPI Mood disorder Insomnia Continue home medications DVT Px: Coumadin, IV heparin Total Time Total Time Spent Total Time Spent (In Minutes): 35 minutes Discharge Plan Discharge Items Patient Disposition: Home - Self-Care Reason For Visit: SYNCOPE,RHABDO Discharge Diagnosis: Syncope and collapse, paroxysmal atrial fibrillation, severe aortic stenosis, TAIL, rhabdomyolysis Condition on Discharge: Good Activity: Resume your previous activity Non-emergency contact: Primary Care Provider Call non-emergency contact if: you have any medication questions and your sy mptoms worsen Follow-up/Referrals: Jerardo Borges DO [[employer]] - (The Cardiology office will contact you for a follow up appointment/testing.) Bhavna Obando DO [Primary Care Provider] - (Date & Time 01/15/2024 1:40 PM Provider Bhavna Obando DO Department [facility] ) Diet: Heart Healthy Addtl Attending Provider Instructions: Please take precautions to avoid falls Take your medications as advised Please keep follow-up appointments with the healthcare providers and coagulation clinic Pending Studies at Discharge: No Stand-Alone Forms: My JMEA, Smoking Cessation Medications and DC Order Prescriptions: New enoxaparin [Lovenox] 120 mg/0.8 mL syringe 120 mg subcut DAILY Qty: 0.8 0RF Rx Instructions: 1 dose only for Tomorrow Continued amlodipine 2.5 mg tablet 2.5 mg PO QAM Qty: 90 3RF levothyroxine 112 mcg tablet 112 mcg PO QAM Qty: 90 3RF omeprazole 20 mg capsule,delayed release(DR/EC) 20 mg PO HS Qty: 90 3RF trazodone 50 mg tablet 50 mg PO HS Qty: 30 5RF metoprolol tartrate 50 mg tablet 50 mg PO BID Qty: 60 5RF warfarin 5 mg tablet 5 mg PO UD Qty: 90 3RF Protocol: Dose Management Condition: Friday Dose/Route: 10 mg Instruction: 2 x 5 mg tablets Condition: Friday Dose/Route: 7.5 mg Instruction: 1.5 x 5 mg tablets Condition: Friday Dose/Route: 10 mg Instruction: 2 x 5 mg tablets Condition: Friday Dose/Route: 7.5 mg Instruction: 1.5 x 5 mg tablets Condition: Dose/Route: 10 mg Instruction: 2 x 5 mg tablets Condition: Friday Dose/Route: 10 mg Instruction: 2 x 5 mg tablets Condition: Friday Dose/Route: 7.5 mg Instruction: 1.5 x 5 mg tablets Protocol Text: Adjustment Start Date: Friday05/04/21 INR Value: 2.5 INR Date: 05/04/21 Recheck Date: 05/18/21 Rx Instructions: 7.5 mg Fri,Fri,Fri 10mg Sun,,, Fri multivitamin [Daily Multi-Vitamin] tablet 1 tab PO DAILY diclofenac sodium 1 % gel 2 gm TOP QID Qty: 100 5RF Rx Instructions: apply to feet cholecalciferol (vitamin D3) [Vitamin D3] 25 mcg (1,000 unit) Capsule 25 mcg PO QAM Rx Instructions: 400mcg dose per patient multivitamin Tablet 1 tab PO QAM ascorbic acid (vitamin C) 500 mg Tablet 500 mg PO QAM Tumeric 500 mg PO QAM buspirone 10 mg tablet 10 mg PO BID Discharge Orders: Discharge Order (Routine); Ordered 01/09/24 Ordered By: Carrie Davis/Other Patient Handouts: Anticoagulants, AFib Dc, AFib Preventing Stroke Admission Data Admit Date/Time: 01/04/24 08:18 Attending Provider: Carrie Estrada Admit Provider: Chilango Bond Primary Care Provider: Bhavna Obando Other Providers: Halina Ferreira; Jerardo Borges; Carlos Hudson; Brett Rod; Dino Lopez; Michele Cooper; Ronda Hdz; Annelise Andrew; Leticia Verma; Halina Reaves; Domo Ferrer; Papo Jean Baptiste; Alana Quesada; Esthela Crowder; Katarina Schmid; Viridiana Grimes; Andre Steinberg; Candice Gasca; Vianca Sanon; Tc Cardoza; Jerardo Hook Jr; Rosangela Schafer; Cristal Gamino G; Sarah Payan; Sherry Green; Mesha Ruff; Jennifer Boyd; Catherine Ayala; Ethan Randall; Nagi Savage; Dino Roper; Lon Griffin; Ngozi Griffin; Lc Wood; Linda Rodriguez; Jairo Johnson; Felix Cho; Joce Serrano; Agustin Bowen; Marjan Velaqsuez; Michele Armenta A; Bhavna Armenta; Romario Tristan E; Halina Tinsley; Louie Javed; Ronda Mayes; Simran Lopes; Tc Barron; Mya Hernandes; Yoon Hylton; Hilda Celis; Leanne Germain; Luis A Germain V; Jayden Mendosa; Mesha Fox; Dany Banuelos; Anu Price; Luis A Palmer; John Velasquez; Tera Red; Terri Henry; Alondra Casiano; Luis A Dickey; José Manuel Mckeon; Rosie Ragland; Jd Baldwin; Mayte Laam; Lauren Espinal; Jerardo Blue; Darian Bowen; Yael Eubanks; Rita Fournier; Lewis Peñaloza; Bert Rios; Ethan Soni Jr; Lakshmi Snyder; Shira Garza AMoses; Christelle Augustin; Tc Lovett; Lon Maurer; Mackenzie Haque; Shira Laws A.; Severino Crews; Michael Kelly; Sameer Buchanan; Edson Santiago; Hodan Clark; Ce Chacon; Keshia Mar; Gabbi Tellez; Chilango Bond Other Interventions: Discharge Summary Assessment (RN) Last Done: 01/09/24 13:28
== END 2024-01-09 14:26 | disposition home or self-care (01) | DRG 315 ==
LOC: ED 01:24 → SUATTDRO 08:18 → 4W 08:18
DX: E03.9 Hypothyroidism, unspecified; I45.10 Unspecified right bundle-branch block; Y92.009 Unspecified place in unspecified non-institutional (private) residence as the place of occurrence of the external cause; G47.00 Insomnia, unspecified; W18.09XA Striking against other object with subsequent fall, initial encounter; I48.0 Paroxysmal atrial fibrillation; Z95.2 Presence of prosthetic heart valve; F31.9 Bipolar disorder, unspecified; N17.9 Acute kidney failure, unspecified; R79.1 Abnormal coagulation profile; E87.1 Hypo-osmolality and hyponatremia; Z87.891 Personal history of nicotine dependence; R55 Syncope and collapse; Z88.6 Allergy status to analgesic agent; E87.6 Hypokalemia; I35.0 Nonrheumatic aortic (valve) stenosis; T82.857A Stenosis of other cardiac prosthetic devices, implants and grafts, initial encounter; D72.829 Elevated white blood cell count, unspecified; K21.9 Gastro-esophageal reflux disease without esophagitis; T79.6XXA Traumatic ischemia of muscle, initial encounter; Y71.2 Prosthetic and other implants, materials and accessory cardiovascular devices associated with adverse incidents; Z88.1 Allergy status to other antibiotic agents